=== PATIENT | female | born 1955 | race Caucasian/White ===

== ENCOUNTER → 2017-11-18 17:20 | Outpatient (CLI) | payer MEDICARE, OTHER, SELFPAY ==
[2017-11-18 17:51] LABS: Absolute Lymphocyte Count 1.52 X10^3/ul (0.83-4.51); Absolute Neutrophil Count 2.8 X10^3/uL (2.0-7.7); Basophil# 0.02 X10^3/uL; Basophil% 0.4 % (0-1); Eosinophil# 0.07 X10^3/uL; Eosinophils% 1.4 % (0-5); Hematocrit 40.6 % (37-47); Hemoglobin 13.4 g/dl (12.0-15.0); Lymphocyte # 1.52 X10^3/ul (4.0); Mean Corpuscular Hgb 30.9 pg (27.0-32.0); Mean Corpuscular Volume 93.5 fL (81-99); Mean Platelet Vol. 10.5 fl (6.2-12.0); Monocyte# 0.63 X10^3/uL; Monocyte% 12.4 % (0-10); Neutrophil # 2.82 X10^3/uL (2.7-7.7); Neutrophil % 55.6 % (47-70); Platelet Count 228 K/mm3 (150-450); RBC Distribution Width CV 12.6 % (11.6-14.6); RBC Distribution Width SD 41.9 fl (35.1-43.9); Red Blood Count 4.34 M/mm3 (4.2-5.4); White Blood Count 5.1 K/mm3 (4.4-11.0)
[2017-11-18 18:06] LABS: Erythrocyte Sedimentation Rate 4 mm/hr (0-30)
[2017-11-18 18:14] LABS: POSITIVE COUNT NO; POSITIVE DIFFERENTIAL NO; POSITIVE MORPHOLOGY NO
[2017-11-18 18:51] LABS: CRP < 2.90 mg/L (0.0-3.0); Creatinine, Serum 0.95 mg/dL (0.55-1.02); EST Glomerular Filtration Rate 63 mL/min (>60); Est Glom Filt Rate - Afr Amer 76 mL/min (>60)
== END ==
PROVIDERS: Family Provider Family Medicine; PCP Family Medicine; Visit Provider Ophthalmology
DX: H50.05 Alternating esotropia (principal); H53.2 Diplopia; H40.033 Anatomical narrow angle, bilateral
CPT/HCPCS: 36415; 82565; 85025; 85652; 86140

== ENCOUNTER → 2017-11-20 06:31 | Outpatient (CLI) | payer MEDICARE, OTHER, SELFPAY ==
--- NOTE | 2017-11-20 06:34 | MRI_ITS ---
STUDY: MRI BRAIN WITH AND WITHOUT CONTRAST REASON FOR EXAM: Female, 62 years old. diplopia x 2 days, nki. diplopia x 2 days, nki. TECHNIQUE: Standardized multiplanar fat and water weighted pulse sequences were obtained. 7 ml of Gadavist contrast material was administered intravenously for the contrast portion of the examination. COMPARISON: None. FINDINGS: Normal size of the ventricles and extra-axial spaces for the patient's age. Normal white matter tracts of the supratentorial brain. Normal bilateral globes. Normal bilateral optic nerve sheath complexes and optic nerves. Normal bilateral intraconal and extraconal spaces. Normal bilateral extraocular muscles. Normal bilateral basal ganglia. Normal thalami. There is no extra-axial fluid accumulation. Normal flow voids within the major intracranial circulation suggesting patency by spin echo criteria. Normal venous enhancement. There is no enhancing intra-axial or extra-axial abnormality. Normal sella turcica, pituitary gland, infundibular stalk, optic chiasm and hypothalamus. Normal tectal plate and pineal gland. Normal midbrain, yue and medulla. Normal cerebellum. Normal basal cisterns. Normal bilateral temporal bones. Normal bilateral internal auditory canals. MRI/Brain W/WO Contrast IMPRESSION: Normal unenhanced and enhanced MRI of the brain. Electronically Signed: Silvia Welsh MD at 13:13 EST Tel , Service support ,
== END ==
PROVIDERS: Family Provider Family Medicine; PCP Family Medicine; Visit Provider Ophthalmology
DX: H53.2 Diplopia (principal)
CPT/HCPCS: 70553; A9585

== ENCOUNTER → 2018-09-08 14:01 | Outpatient (CLI) | payer MEDICARE, OTHER, SELFPAY ==
[2018-09-10 15:32] LABS: HPV Reflexed? NOT INDICATED
== END ==
PROVIDERS: Visit Provider Obstetrics & Gynecology
DX: Z12.4 Encounter for screening for malignant neoplasm of cervix (principal)
CPT/HCPCS: 88175; G0145

== ENCOUNTER → 2018-10-22 10:41 | Outpatient (CLI) | payer MEDICARE, OTHER, SELFPAY ==
[2018-10-22 12:40] LABS: Absolute Lymphocyte Count 1.04 X10^3/ul (0.83-4.51); Absolute Neutrophil Count 2.6 X10^3/uL (2.0-7.7); Basophil# 0.01 X10^3/uL; Basophil% 0.2 % (0-1); Eosinophil# 0.11 X10^3/uL; Eosinophils% 2.6 % (0-5); Hematocrit 43.5 % (37-47); Hemoglobin 14.2 g/dl (12.0-15.0); Lymphocyte # 1.04 X10^3/ul (4.0); Lymphocyte % 24.8 % (19-41); Mean Corp Hgb Conc 32.6 g/gl (32-36); Mean Corpuscular Hgb 30.8 pg (27.0-32.0); Mean Corpuscular Volume 94.4 fL (81-99); Monocyte# 0.41 X10^3/uL; Monocyte% 9.8 % (0-10); Neutrophil # 2.62 X10^3/uL (2.7-7.7); Neutrophil % 62.4 % (47-70); Platelet Count 203 K/mm3 (150-450); RBC Distribution Width CV 12.9 % (11.6-14.6); RBC Distribution Width SD 43.4 fl (35.1-43.9); Red Blood Count 4.61 M/mm3 (4.2-5.4); White Blood Count 4.2 K/mm3 (4.4-11.0)
[2018-10-22 12:42] LABS: POSITIVE COUNT NO; POSITIVE DIFFERENTIAL NO; POSITIVE MORPHOLOGY NO
[2018-10-22 13:01] LABS: ALB/GLOB Ratio 1.3 RATIO (0.9-2.4); AST(SGOT) 14 U/L (15-37); Alanine Aminotransfer ALT/SGPT 18 U/L (13-56); Albumin, Serum 3.8 g/dL (3.2-5.0); Alkaline Phosphatase 78 U/L (45-117); Anion Gap 10 (5-15); BUN 18 mg/dL (7-18); BUN/Creat Ratio 18.1 RATIO (10-20); Calcium,Total 8.7 mg/dL (8.5-10.1); Chloride 107 mmol/L (98-107); Creatinine, Serum 0.99 mg/dL (0.55-1.02); EST Glomerular Filtration Rate 60 mL/min (>60); Est Glom Filt Rate - Afr Amer 73 mL/min (>60); Glucose 93 mg/dL (74-106); Magnesium 2.4 mg/dL (1.6-2.6); Potassium 4.4 mmol/L (3.5-5.1); Protein, Total 6.8 g/dL (6.4-8.2); Sodium Level 143 mmol/L (136-145); Thyroid Stim Hormone (TSH) 2.01 uIU/mL (0.358-3.74)
[2018-10-22 13:28] LABS: Hemoglobin A1c 5.5 % (4.2-6.3)
--- OUTSIDE RECORDS SUMMARY | 2018-12-24 08:19 | XMS RPT_ITS ---
:1955 Author Organization OHIP Care Team Providers Name Role Phone Robert Boland Attending Unavailable Robert Boland Primary Care Unavailable Randi Shelton Attending Unavailable Randi Shelton Referring Unavailable Robert Boland Primary Care Unavailable Randi Shelton Attending Unavailable Randi Shelton Referring Unavailable Robert Boland Primary Care Unavailable Janett Charlton Attending Unavailable PROBLEMS PROBLEMS DATE TYPE CONDITION / CODE ATTENDING STATUS SOURCE 09/08/2018 Unknown Z12.4 - Janett Charlton Active Kael Encounter for Community screening for Hospital malignant Repository neoplasm of cervix / Z12.4(ICD-10) 11/20/2017 Unknown H53.2 - Diplopia Randi Shelton Active Kael / H53.2(ICD-10) [facility] Repository PROCEDURES PROCEDURES No Procedure Records FoundRESULTS RESULTS CBC W/DIFF, AUTOMATED Collected: 10/22/2018 Status: F Source: [place] 10:42 AM [facility] REPOSITORY TYPE CODE TESTS RESULT OUT OF RANGE REFERENCE UNITS LAB L100.1000 4.4-11.0 K/mm3 Low WBC 4.2 LAB L100.1200 4.2-5.4 M/mm3 Normal RBC 4.61 LAB L100.1300 12.0-15.0 g/dl Normal HGB 14.2 LAB L100.1400 37-47 % Normal HCT 43.5 LAB L100.1500 81-99 fL Normal MCV 94.4 LAB L100.1600 27.0-32.0 pg Normal MCH 30.8 LAB L100.1700 32-36 g/gl Normal MCHC 32.6 LAB L100.1810 11.6-14.6 % Normal RDW CV 12.9 LAB L100.1820 35.1-43.9 fl Normal RDW SD 43.4 LAB L100.1900 150-450 K/mm3 Normal PLT 203 LAB L100.2000 6.2-12.0 fl Normal MPV 11.0 LAB L100.2100 47-70 % Normal NEUT% 62.4 LAB L100.2200 19-41 % Normal LY% 24.8 LAB L100.2300 0-10 % Normal MONO% 9.8 LAB L100.2400 0-5 % Normal EO% 2.6 LAB L100.2500 0-1 % Normal BASO% 0.2 LAB L100.2550 0.0-0.9 % Normal IM GRAN % 0.200 Result Comment: IG% - Immature Granulocytes (promyelocytes, myelocytes and metamyelocytes) > 1% indicates that a LEFT SHIFT is Present. LAB L100.2620 2.0-7.7 X10 3/uL Normal Absolute Neut 2.6 LAB L100.2720 0.83-4.51 X10 3/ul Normal Absolute Lymph 1.04 Performed By: #### L100.0100, L500.4050, L501.5200, L501.9520, L501.9985 #### [facility] [address] [place], [address] COMPREHENSIVE METABOLIC Collected: 10/22/2018 Status: F Source: [facility] 10:42 AM [facility] REPOSITORY TYPE CODE TESTS RESULT OUT OF RANGE REFERENCE UNITS LAB L501.0100 74-106 mg/dL Normal GLU 93 Result Comment: Please note revised GLUCOSE reference range effective 2017. LAB L501.1000 7-18 mg/dL Normal BUN 18 LAB L501.1100 0.55-1.02 mg/dL Normal CREAT,SERUM 0.99 Result Comment: The validity of the calculated GFR AND GFRAA in patients over 70 years has not been determined. Clinical correlation is essential. LAB L501.1110 >60 mL/min Normal EST GFR 60 Result Comment: Non- GFR Calc LAB L501.1115 >60 mL/min Normal EST GFR - AA 73 Result Comment: GFR Calc LAB L501.1300 10-20 RATIO Normal BUN/CRE 18.1 LAB L501.1500 6.4-8.2 g/dL T Normal PROT 6.8 LAB L501.1800 3.2-5.0 g/dL Normal ALB 3.8 LAB L501.1950 2.2-4.2 g/dL Normal GLOB 3.0 LAB L501.2000 0.9-2.4 RATIO Normal A/G 1.3 LAB L501.2200 8.5-10.1 mg/dL CA Normal 8.7 LAB L501.4100 15-37 U/L Low AST 14 LAB L501.4305 45-117 U/L Normal ALK P 78 LAB L501.4405 13-56 U/L Normal ALT 18 LAB L501.4600 0.20-1.00 mg/dL T Normal BILI 0.70 LAB L501.5300 136-145 mmol/L NA Normal 143 LAB L501.5600 3.5-5.1 mmol/L K Normal 4.4 LAB L501.5900 98-107 mmol/L CL Normal 107 LAB L501.6100 21.0-32.0 mmol/L Normal CO2 26.0 LAB L501.6200 5-15 Normal GAP 10 Performed By: #### L100.0100, L500.4050, L501.5200, L501.9520, L501.9985 #### [facility] [address] [place], [place], [address] MAGNESIUM Collected: 10/22/2018 Status: F Source: [place] 10:42 AM [facility] REPOSITORY TYPE CODE TESTS RESULT OUT OF RANGE REFERENCE UNITS LAB L501.5200 1.6-2.6 mg/dL Normal MG 2.4 Performed By: #### L100.0100, L500.4050, L501.5200, L501.9520, L501.9985 #### [facility] [address] [place], [address] THYROID STIM HORMONE Collected: 10/22/2018 Status: F Source: [place] (TSH) 10:42 AM [facility] REPOSITORY TYPE CODE TESTS RESULT OUT OF RANGE REFERENCE UNITS LAB L501.9520 0.358-3.74 uIU/mL Normal TSH 2.01 Performed By: #### L100.0100, L500.4050, L501.5200, L501.9520, L501.9985 #### [facility] [address] [place], [address] HEMOGLOBIN A1C Collected: 10/22/2018 Status: F Source: [place] 10:42 AM [facility] REPOSITORY TYPE CODE TESTS RESULT OUT OF RANGE REFERENCE UNITS LAB L501.9985 4.2-6.3 % Normal HGB A1C 5.5 Performed By: #### L100.0100, L500.4050, L501.5200, L501.9520, L501.9985 #### [facility] [address] [place], [address] PAP I-G W/RFX HRHPV Collected: 09/08/2018 Status: F Source: [place] 10:00 AM [facility] REPOSITORY Order Comment: CYTOLOGY INFORMATION: - CLINICAL INFORMATION: POSTMENOPAUSAL - DATE LMP/MENOPAUSE: - COLLECTION VIAL: Thin Prep Vial - SOFTWARE DEVELOPER SOURCE: CERVICAL/ENDOCERVICAL - COLLECTION TECHNIQUE: BRUSH/SPATULA Specimen Comment: [id number] Specimen Comment: Source.............Cervix;Endocervix Specimen Comment: Other..............Post Menopausal Specimen Comment: No. of containers..01 ThinPrep Vial TYPE CODE TESTS RESULT OUT OF RANGE REFERENCE UNITS LAB L7400.0800 . Normal DIAGN Comment Result Comment: NEGATIVE FOR INTRAEPITHELIAL LESION AND MALIGNANCY. LAB L7400.0900 . Normal ADEQ Comment Result Comment: Satisfactory for evaluation. Endocervical and/or squamous metaplastic cells (endocervical component) are present. LAB L7400.1400 . Normal PERFORM Comment Result Comment: Audrey Schaffer, [place]ier Field Service Technician (ASCP) LAB L7400.2575 . Normal TEST METHOD Comment Result Comment: This liquid based ThinPrep(R) pap test was screened with the use of an image guided system. LAB L7400.2600 . Normal . COMM LAB L7400.2700 . Normal PAPSMR Comment Result Comment: The Pap smear is a screening test designed to aid in the detection of premalignant and malignant conditions of the uterine cervix. It is not a diagnostic procedure and should not be used as the sole means of detecting cervical cancer. Both false-positive and false-negative reports do occur. LAB L7400.2800 . Normal HPV RFLX Comment Result Comment: The HPV DNA reflex criteria were not met with this specimen result therefore, no HPV testing was performed. Performed at: - [facility] [address], [place] [id number] Compensation Intern: Yola Emery MD, Phone: [phone] Performed By: #### L7400.0350 #### [facility] (refer to report for specific site) refer to report for address and phone number BRAIN W/WO CONTRAST Observed: 11/20/2017 Status: F Source: [place] 6:34 AM [facility] REPOSITORY [facility] Imaging Services [address] [place] [address] Brain W/WO Contrast MR#: [id number] Acct: [id number] Name: SOLANGE HICKEY Rep #: [id number] : 1955 F 62 From: Silvia Welsh PCP: Robert Boland MD Status: REG CLI Study: Brain W/WO Contrast Date of Exam: 11/20/17 Exam# [id number] Ordering Dr: Randi Shelton MD ADDENDUM by Silvia Welsh on 11/22/17 at 0930 MRI/Brain W/WO Contrast 11/22/17 0937 Date cc: Robert Boland MD; Randi Shelton * Signed ADDENDUM by Silvia Welsh on 11/22/17 at 0930 ADDENDUM Normal bilateral globes. Normal bilateral optic nerve sheath complexes and optic nerves. Normal bilateral intraconal and extraconal spaces. Normal bilateral extraocular muscles. Electronically Signed: Silvia Welsh MD at 9:30 EST Tel , Service support , 11/22/17929 Date cc: Robert Boland MD; Randi Shelton * Signed ADDENDUM by Silvia Welsh on 11/22/17 at 0920 MRI/Brain W/WO Contrast 11/22/17926 Date cc: Robert Boland MD; Randi Shelton * Signed ADDENDUM by Silvia Welsh on 11/22/17 at 0920 ADDENDUM TECHNIQUE: Orbits sequences submitted for evaluation include Cor T2 FSE THIN FAT Ax T1 FSE (Thin) FAT Ax T1 FSE (Thin) FAT C+ COR T1 FSE (Thin) FAT C+ Electronically Signed: Silvia Welsh MD at 9:20 EST Tel , Service support , 11/22/17919 Date cc: Robert Boland MD; Randi Shelton * Signed STUDY: MRI BRAIN WITH AND WITHOUT CONTRAST REASON FOR EXAM: Female, 62 years old. diplopia x 2 days, nki. diplopia x 2 days, nki. TECHNIQUE: Standardized multiplanar fat and water weighted pulse sequences were obtained. 7 ml of Gadavist contrast material was administered intravenously for the contrast portion of the examination. COMPARISON: None. FINDINGS: Normal size of the ventricles and extra-axial spaces for the patient's age. Normal white matter tracts of the supratentorial brain. Normal bilateral globes. Normal bilateral optic nerve sheath complexes and optic nerves. Normal bilateral intraconal and extraconal spaces. Normal bilateral extraocular muscles. Normal bilateral basal ganglia. Normal thalami. There is no extra-axial fluid accumulation. Normal flow voids within the major intracranial circulation suggesting patency by spin echo criteria. Normal venous enhancement. There is no enhancing intra-axial or extra-axial abnormality. Normal sella turcica, pituitary gland, infundibular stalk, optic chiasm and hypothalamus. Normal tectal plate and pineal gland. Normal midbrain, yue and medulla. Normal cerebellum. Normal basal cisterns. Normal bilateral temporal bones. Normal bilateral internal auditory canals. MRI/Brain W/WO Contrast IMPRESSION: Normal unenhanced and enhanced MRI of the brain. Electronically Signed: Silvia Welsh MD at 13:13 EST Tel , Service support , CC: Robert Boland MD; Randi Shelton Face Burler: Signed ERYTHROCYTE SED RATE Collected: 11/18/2017 Status: F Source: [place] 5:31 PM [facility] REPOSITORY TYPE CODE TESTS RESULT OUT OF RANGE REFERENCE UNITS LAB L102.0000 0-30 mm/hr Normal SED RATE 4 Performed By: #### L101.9900, L100.0100 #### [facility] [address] [place], [address] CBC W/DIFF, AUTOMATED Collected: 11/18/2017 Status: F Source: [place] 5:31 PM [facility] REPOSITORY TYPE CODE TESTS RESULT OUT OF RANGE REFERENCE UNITS LAB L100.1000 4.4-11.0 K/mm3 Normal WBC 5.1 LAB L100.1200 4.2-5.4 M/mm3 Normal RBC 4.34 LAB L100.1300 12.0-15.0 g/dl Normal HGB 13.4 LAB L100.1400 37-47 % Normal HCT 40.6 LAB L100.1500 81-99 fL Normal MCV 93.5 LAB L100.1600 27.0-32.0 pg Normal MCH 30.9 LAB L100.1700 32-36 g/gl Normal MCHC 33.0 LAB L100.1810 11.6-14.6 % Normal RDW CV 12.6 LAB L100.1820 35.1-43.9 fl Normal RDW SD 41.9 LAB L100.1900 150-450 K/mm3 Normal PLT 228 LAB L100.2000 6.2-12.0 fl Normal MPV 10.5 LAB L100.2100 47-70 % Normal NEUT% 55.6 LAB L100.2200 19-41 % Normal LY% 30.0 LAB L100.2300 0-10 % High MONO% 12.4 LAB L100.2400 0-5 % Normal EO% 1.4 LAB L100.2500 0-1 % Normal BASO% 0.4 LAB L100.2550 0.0-0.9 % Normal IM GRAN % 0.200 Result Comment: IG% - Immature Granulocytes (promyelocytes, myelocytes and metamyelocytes) > 1% indicates that a LEFT SHIFT is Present. LAB L100.2620 2.0-7.7 X10 3/uL Normal Absolute Neut 2.8 LAB L100.2720 0.83-4.51 X10 3/ul Normal Absolute Lymph 1.52 Performed By: #### L101.9900, L100.0100 #### [facility] [place], [place], [address] SERUM CREATININE AND Collected: 11/18/2017 Status: F Source: [place] GFR 5:31 PM [facility] REPOSITORY TYPE CODE TESTS RESULT OUT OF RANGE REFERENCE UNITS LAB L501.1100 0.55-1.02 mg/dL Normal 0.95 CREAT,SERUM Result Comment: The validity of the calculated GFR AND GFRAA in patients over 70 years has not been determined. Clinical correlation is essential. LAB L501.1110 >60 mL/min Normal EST GFR 63 Result Comment: Non- GFR Calc LAB L501.1115 >60 mL/min Normal EST GFR - AA 76 Result Comment: GFR Calc Performed By: #### L501.1105, L501.6710 #### [facility] [address] [place], [address] CRP Collected: 11/18/2017 Status: F Source: [place] 5:31 PM [facility] REPOSITORY TYPE CODE TESTS RESULT OUT OF RANGE REFERENCE UNITS LAB L501.6710 0.0-3.0 mg/L Normal < 2.90 C-REACTIVE PROT Result Comment: C-Reactive Protein (CRP) provides useful information for the diagnosis, therapy and monitoring of inflammatory processes and associated diseases. For the evaluation of Relative Risk for Cardiovascular Disease, a High Sensitivity CRP (HSCRP) should be ordered. Performed By: #### L501.1105, L501.6710 #### [facility] [address] [place], [address] ALLERGIES ALLERGIES DATE TYPE / CODE NAME / CODE REACTION SEVERITY SOURCE 06/29/2017 Drug No Known Unknown [facility] Allergy/4160 Allergies/F00 [facility] [address](SNOMED [id number](RXNOR Repository CT) M) ENCOUNTERS ENCOUNTERS ADMIT/DISCHARGE ACCOUNT ADMITTING ENCOUNTER LOCATION SOURCE NUMBER CLASS 10/22/2018 [id number] [facility] 1 [facility] ing:MFPLAB Repository 09/08/2018 [id number] [facility] 1 [facility] ing:LABSPEC Repository 11/20/2017 [id number] [facility] 5 [facility] ing:MRI Repository 11/18/2017 [id number] [facility] 3 [facility] ing:LAB Repository PAYERS PAYERS ENCOUNTER GUARANTOR PAYER SUBSCRIBER SOURCE 10/22/2018 YU Das: Kael [id number] [place] Insurance[id number] [address]Tel: (330) Number: Repository [phone] () [id number] Date:2018-10-22 10/22/2018 Secondary Solange HickeyDOB: Dresser Insurance:[facility] [id number] [id number] Hospital Number: Repository [id number] Date:9614-09-98[address], [place] [address]VH: 10/22/2018 Tertiary NOT GIVENUNK [place] Insurance:SELF PAY [facility] Effective Repository Date:2018-10-22 09/08/2018 YU Fitzpatrick Primary Solange HickeyDOB: Kael [id number] [place] Insurance:MEDICARE [id number] A [place] [id number]: [phone]) Number: Repository [phone] () [id number] Date:2018-09-08 09/08/2018 Secondary Solange L EdelmiraDOB: Dresser Insurance:[facility] [id number] Hospital Number: Repository [id number] Date:5610-63-36[address], [place] [address]TW: 09/08/2018 Tertiary NOT GIVENUNK [place] Insurance:SELF PAY [facility] Number: Effective Repository Date:2018-09-08 11/20/2017 YU [id number] Primary Solange L EdelmiraDOB: Kael [place] Insurance:MEDICARE [id number] A [place] [id number]: [phone]) Number: Repository [phone] () [id number] Date:2017-11-19 11/20/2017 Secondary Solange L EdelmiraDOB: Kael Insurance:[facility] [id number] [facility] Number: Repository [id number] Date:7580-95-19[address], [place] [address]BU: 11/20/2017 Tertiary NOT GIVENUNK [place] Insurance:SELF PAY [facility] Number: Effective Repository Date:2017-11-19 11/18/2017 YU [id number] Primary Solange Das: Dresser [place] Insurance:MEDICARE [id number] includes the [facility], [place] PART A [facility] [address]Kgr: [phone]) Number: Repository [phone] ( [id number] Date:2017-11-18 11/18/2017 Secondary Solange Das: Kael Insurance:[facility] [id number] [address] Number: Repository [id number] Date:5149-94-23[address], [place] [address]CV: 11/18/2017 Tertiary NOT GIVENUNK [place] Insurance:SELF PAY [facility] Number: Effective Repository Date:2017-11-18
== END ==
PROVIDERS: Family Provider Family Medicine; PCP Family Medicine; Visit Provider Family Medicine
DX: R42 Dizziness and giddiness (principal)
CPT/HCPCS: 36415; 80053; 83036; 83735; 84443; 85025

== ENCOUNTER → 2018-10-29 08:49 | Outpatient (CLI) | payer MEDICARE, OTHER, SELFPAY ==
--- NOTE | 2018-10-29 08:55 | BI_ITS ---
MAMMOGRAPHY - BILATERAL SCREENING REASON FOR EXAM: Female, 63 years old. Routine annual screening examination. PERTINENT HISTORY: Non-contributory. TECHNIQUE: Digital bilateral breast araseli (3D mammographic acquisition) in the CC and MLO projections. 2-D mediolateral oblique (MLO) and craniocaudad (CC) views of both breasts were obtained. CAD: Full Field Digital Mammography with Computer Added Detection was performed. COMPARISON: Comparison is made with prior study dated April 03, 2018 and September 14, 2016. FINDINGS: Breast Composition: There are scattered areas of fibroglandular density. There are no dominant masses or suspicious calcifications. Stable 5 mm x 5 mm well-defined nodular density in the upper outer aspect of the left breast. This most likely represents a small lymph node. Stable appearance of the bilateral axillary lymph nodes. No other significant abnormalities are identified. There has been no significant change since the prior study. BI/SCREENING MAMM (CAD), BILAT IMPRESSION: Stable bilateral screening mammogram. Yearly follow-up mammogram recommended. (A) ASSESSMENT CATEGORY: BIRADS Category 2: Benign. A letter regarding these results will be sent to the patient by the facility within 30 days. Approximately 10% of breast cancers are not detected by mammography. A normal mammogram should not delay biopsy of a clinically suspicious abnormality. [id number] Electronically Signed: Ignacio Vivas MD at 10:10 EST , Service support ,
== END ==
PROVIDERS: Family Provider Family Medicine; PCP Family Medicine; Referring Provider Obstetrics & Gynecology; Visit Provider Obstetrics & Gynecology
DX: Z12.31 Encounter for screening mammogram for malignant neoplasm of breast (principal)
CPT/HCPCS: 77063; 77067

== ENCOUNTER → 2019-11-02 09:45 | Outpatient (CLI) | payer MEDICARE, OTHER, SELFPAY ==
--- NOTE | 2019-11-02 09:49 | BI_ITS ---
MAMMOGRAPHY - BILATERAL SCREENING REASON FOR EXAM: Female, 64 years old. Routine annual screening examination. PERTINENT HISTORY: Non-contributory. TECHNIQUE: Digital bilateral breast jerson (3D mammographic acquisition) in the CC and MLO projections. 2-D mediolateral oblique (MLO) and craniocaudad (CC) views of both breasts were obtained. CAD: Full Field Digital Mammography with Computer Added Detection was performed. COMPARISON: Comparison is made with prior study dated October 29, 2018 and October 04, 2017. FINDINGS: Breast Composition: There are scattered areas of fibroglandular density. There are no dominant masses or suspicious calcifications. Stable 5 mm x 5 mm well-defined nodule in the upper outer aspect of the left breast. Prior sonogram demonstrated this to be a small cyst. Stable small benign-appearing bilateral axillary lymph nodes. No other significant abnormalities are identified. There has been no significant change since the prior study. BI/SCREEN MAMM (CAD) W/JERSON BILAT IMPRESSION: Stable bilateral screening mammogram. Yearly follow-up mammogram recommended. (A) ASSESSMENT CATEGORY: BIRADS Category 0: Incomplete. Need additional imaging evaluation. A letter regarding these results will be sent to the patient by the facility within 30 days. Approximately 10% of breast cancers are not detected by mammography. A normal mammogram should not delay biopsy of a clinically suspicious abnormality. [id number] Electronically Signed: Ignacio Vivas, at 10:48 EST , Service support ,
== END ==
PROVIDERS: Family Provider Family Medicine; PCP Family Medicine; Referring Provider Obstetrics & Gynecology; Visit Provider Obstetrics & Gynecology
DX: Z12.31 Encounter for screening mammogram for malignant neoplasm of breast (principal)
CPT/HCPCS: 77063; 77067

== ENCOUNTER → 2020-01-12 15:49 | Outpatient (CLI) | payer MEDICARE, OTHER, SELFPAY ==
[2020-01-12 17:24] LABS: Absolute Lymphocyte Count 1.32 X10^3/uL (0.83-4.51); Absolute Neutrophil Count 3.2 X10^3/uL (2.0-7.7); Basophil# 0.02 X10^3/uL; Basophil% 0.4 % (0-1); Eosinophil# 0.14 X10^3/uL; Eosinophils% 2.7 % (0-5); Hematocrit 42.7 % (37-47); Lymphocyte # 1.32 X10^3/ul (4.0); Lymphocyte % 25.5 % (19-41); Mean Corp Hgb Conc 32.8 g/dL (32-36); Mean Corpuscular Hgb 30.8 pg (27.0-32.0); Mean Corpuscular Volume 94.1 fL (81-99); Mean Platelet Vol. 10.8 fl (6.2-12.0); Monocyte# 0.44 X10^3/uL; Monocyte% 8.5 % (0-10); NRBC Flagged by Analyzer 0 % (0-5); Neutrophil # 3.23 X10^3/uL (2.7-7.7); Neutrophil % 62.5 % (47-70); Platelet Count 214 K/mm3 (150-450); RBC Distribution Width CV 12.1 % (11.6-14.6); RBC Distribution Width SD 41.8 fl (35.1-43.9); Red Blood Count 4.54 M/mm3 (4.2-5.4); White Blood Count 5.2 K/mm3 (4.4-11.0)
[2020-01-12 17:46] LABS: ALB/GLOB Ratio 1.2 RATIO (0.9-2.4); AST(SGOT) 17 U/L (15-37); Alanine Aminotransfer ALT/SGPT 23 U/L (13-56); Albumin, Serum 3.9 g/dL (3.2-5.0); Alkaline Phosphatase 87 U/L (45-117); Anion Gap 5 (5-15); BUN 22 mg/dL (7-18); BUN/Creat Ratio 23.8 RATIO (10-20); Calcium,Total 8.8 mg/dL (8.5-10.1); Chloride 104 mmol/L (98-107); Creatinine, Serum 0.92 mg/dL (0.55-1.02); EST Glomerular Filtration Rate 65 mL/min (>60); Est Glom Filt Rate - Afr Amer 79 mL/min (>60); Globulin 3.3 g/dL (2.2-4.2); Glucose 85 mg/dL (74-106); Magnesium 2.3 mg/dL (1.6-2.6); Potassium 3.8 mmol/L (3.5-5.1); Protein, Total 7.2 g/dL (6.4-8.2); Sodium Level 139 mmol/L (136-145)
[2020-01-14 13:09] LABS: ANTINUCLEAR ANTIBODIES DIRECT Negative (Negative)
== END ==
PROVIDERS: PCP Family Medicine; Referring Provider Family Medicine; Visit Provider Family Medicine
DX: M79.10 Myalgia, unspecified site (principal)
CPT/HCPCS: 36415; 80053; 83735; 85025; 86038

== ENCOUNTER → 2020-04-13 10:06 | Outpatient (CLI) | payer MEDICARE, OTHER, SELFPAY ==
--- NOTE | 2020-04-13 10:10 | RAD_ITS ---
STUDY: X-RAY - LUMBAR SPINE REASON FOR EXAM: Female, 64 years old. CHRONIC BACK PAIN, NO KNOWN INJURY TECHNIQUE: 5 view(s) of the lumbar spine were obtained. COMPARISON: None FINDINGS: There has been previous pedicle screw fusion surgery with laminectomy at L4 and L5. Hardware is intact and free of complication. Normal lumbar lordosis. There is no substantial scoliosis. There is a normal alignment of the vertebrae. There is multilevel endplate spondylosis of the lumbar vertebrae. Normal disc space heights. The soft tissue structures are unremarkable. RAD/L/S Spine Min 4 Views IMPRESSION: Mild degenerative and postsurgical changes in the lumbar spine. Electronically Signed: Marcus Malik MD at 10:56 EDT , Service support ,
--- NOTE | 2020-04-13 10:17 | RAD_ITS ---
STUDY: X-RAY - THORACIC SPINE REASON FOR EXAM: Female, 64 years old. CHRONIC BACK PAIN, NO KNOWN INJURY TECHNIQUE: 2 view(s) of the thoracic spine were obtained. COMPARISON: None. FINDINGS: Normal kyphosis of the thoracic spine. There is no substantial scoliosis. There is multilevel endplate spondylosis of the thoracic vertebrae. Mild disc space narrowing throughout the thoracic spine. The soft tissue structures are unremarkable. RAD/Thoracic Spine 3 Views IMPRESSION: Degenerative changes, no acute findings Electronically Signed: Marcus Malik MD at 10:54 EDT , Service support ,
== END ==
PROVIDERS: PCP Family Medicine; Referring Provider Family Medicine; Visit Provider Family Medicine
DX: M54.9 Dorsalgia, unspecified (principal)
CPT/HCPCS: 72072; 72110

== ENCOUNTER 2020-05-06 10:00 | Outpatient (RCR) | payer MEDICARE, OTHER, SELFPAY ==
--- NOTE | 2020-03-03 11:38 | HP.PTEVAL ---
Patient's Visit Information IAN PINEDO is a 64 year old F referred to Physical Therapy by Dr. Robert Boland MD with a diagnosis of chronic back pain. Date of Evaluation: 03/03/20 Physical Therapist: Robert Arias, DPT, OCS, CSCS - Visit Plan Frequency: 2-3x /Week Duration: 4-6 Weeks Plan: 2-3x/week for 3-4 weeks for POol based therapya dn progress to I. Pt to decide if exit strategy is pool ex or home ex. Focus on core strength, quad and hip flexor strength, quad and hip flexor stretching, gastroc stretching and general ex. Pt has been in pool before, filled out initial pool paperwork today. - Subjective Has back pain, combination of R knee weakness and giving temporarily but very intermittient adn sometimes happens on L. Tried wrapping them. Also has L anterior hip pain which he calls sciatica. Has LBP across LB. Pain is to 7/10 with outside work. L hip pain gets to 8/10 also at times making it hard to walk. Sleep is interrupted in that it is not comfortable. 5 hours is a good night, 7 is normal. Still doign most of her activities as she lives alone. Has to take breaks and stop working alot. Retired due to back pain. No regular exercises. Can do all basic ADLs. Hard when she hurts. Soft chairs are worse - Pain LBP Pain Intensity (Out of 10): 1 Pain Intensity Range: 0, 7 L anterior hip Pain Intensity (Out of 10): 8 Pain Intensity Range: 1 - Objective Walks normal todaya dn I, trasnfers without difficulty. Balance is good. L/S aROM ext mod limited and sore middle LB, SB are full and painfree. Felxion is tight but not painful. LE AROM WFL except hip ext to 5 degrees B, tightness in quads and hip flexors max. Gastroc max, and HS min. reflexes 2/3 patella and achilles. Sensation LE WNL to gross light touch. Strength LE 4- quads adn hip flexors B, 4/5 rest of LE without pain. Posture is reduced lordosis in L/S and yphotic thoracic spine. No tenderness in soft tissue in LB. - Goals Goal 1:: Sleep without waking due to discomfort Goal Time Frame: 4-6 Weeks Goal 2:: LBP and hip pain 2/10 at worst and 85% better Goal Time Frame: 4-6 Weeks Goal 3:: No incidence of knee weakness/giving out for 2 wweeks Goal Time Frame: 4-6 Weeks Goal 4:: Oswestry score of <10 Goal Time Frame: 4-6 Weeks - Rehabilitation Potential Physical Therapy Diagnosis: chronic back pain. Rehabilitation Potential: Fair - Anticipated Interventions Patient/Client Instruction: Educate patient on: Condition, Plan of Care For the Purpose of:: To decrease pain, To increase ROM, To improve nutrient delivery to tissue, To improve muscle performance and motor function Therapeutic Exercise to Include: Strength training, Postural training, Flexibilty training, In an aquatic setting, Passive ROM, Active ROM For the Purpose of:: To decrease pain, To increase ROM, To improve nutrient delivery to tissue, To improve muscle performance and motor function, To increase tolerance to activity/condition/position Thank you for the opportunity to evaluate your patient. For Medicare and Medicare HMO plans, please review the plan of care and approve it. It will need to be FAXED BACK to us at [phone] for Medicare purposes. For Medicare only, by signing this I certify the plan of care. Please let me know if there are questions or concerns regarding this plan of care. Physician Signature: Date:
--- NOTE | 2020-03-09 11:13 | HP.OTEVAL ---
Patient's Visit Information IAN PINEDO is a 64 year old F, referred to Occupational Therapy by Dr. Robert Boland MD, with a diagnosis of right RF trigger finger. Date of Evaluation: 03/09/20 Occupational Therapist: Kamla Blair, OTR/Adrianne, CHT - Subjective This 64 year old female was seen for OT eval with dx of right ring finger. Pt thinks this triggering started in Oct. and due to COVID pt was home and symptoms continue to get worse. pt is right handed. Pt states she is doing all home mtg and yard work and feels this may increase her issues. pt thinks initiating cause was shoveling gravel from her yard. Pt would like to return to PLOF so she can perfrom her home mtg tasks without difficulty. 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 Pt will demo an increase in lateral and tripod pinch by 2# to increase pts independent with opening baggies, containers at PLOF by D/C. Goal:: Pt will report pain no greater than 1/10 with use of affected hand with BADLs and IADLs by d/c. Goal:: Pt will demo understanding of work/lifting and carry ergonomics to decrease stress on tendons to increase pts independent with ADLs, IADLS and work tasks by d/c. - Rehabilitation General Assessment: Pt demo with positive right RF trigger finger this is limiting pts ind. with yard work, ADLs and IADLS tasks. Pt would benefit from skilled OT services 2x week for 4 weeks to return pt to PLOF. Today therapist esperanza. custom trigger finger orthosis, ed. on use and care. Therapist instructed pt on forearm stretches, contrast bath and ice massage to decrease inflamation- pt was given handout and demo understanding and agree to POC. Rehabilitation Potential: Good - Anticipated Interventions A/AAROM/PROM, Triggerpoint Release, Modalities, Orthoses, Joint Protection/Energy Conservation, Ergonomic Education - Visit Plan Frequency: 2x /Week Duration: 4 Weeks General Plan: Therapist will initiate modalities as US 100% 1.2 3.3 mhz to right RF, followed by trigger point release- and ice to decrease inflamation and cont. to ed. pt on joint protection and ergo with yard work. TEXT: Thank you for the opportunity to evaluate your patient. For Medicare and Medicare HMO plans, please review the plan of care and approve it. It will need to be FAXED BACK to us at [phone] for Medicare purposes. Please let me know if there are questions or concerns regarding this plan of care. Physician Signature: Date:
--- NOTE | 2020-04-15 13:28 | HP.PTREVAL ---
Dr. Robert Boland MD, It has been my pleasure to treat IAN PINEDO over the last 13 visits for chronic back pain. Please see the progress note below for an update on the physical therapy plan of care! Subjective: Still has heel pain B intermittently in late afternoon and evening. Gets to 9/10. Back is no problem unless she overdoes it. Had 10 x rays of back and all was well. Sleep is not great but not due to physical pain. 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 May try gym program and home is definite. Heel pain is on plantar surface. Objective/Function: LB AROM WFL without pain except ext min limited and tender centrally. LE strenght 4/5 adn core at 4/5. Goals stilla ppropriate to work toward slow improvement and I program pt can do out of water on own care home. Fair prognosis Plan Plan: 2x/week for 3-4 weeks for teaching of following ex for patient HEP with list/pics and neutral spine: ellitpical. bike. band row, pulldown. shoulder press db. mat core strength bugs and supermans. LE strength squats , RDL, band HS curls and heel rasies with db. Goals Goal 1:: Sleep without waking due to discomfort Goal Time Frame: 4-6 Weeks Goal Progress: Goal Met Goal 2:: LBP and hip pain 2/10 at worst and 85% better Goal Time Frame: 4-6 Weeks Goal Progress: Progressing,approp Goal 3:: No incidence of knee weakness/giving out for 2 wweeks Goal Time Frame: 4-6 Weeks Goal Progress: Progressing, 1 instance Goal 4:: Oswestry score of <10 Goal Time Frame: 4-6 Weeks Goal Progress: Progressing Anticipated Interventions Patient/Client Instruction: Educate patient on: Condition, Plan of Care For the Purpose of:: To decrease pain, To increase ROM, To improve nutrient delivery to tissue, To improve muscle performance and motor function Therapeutic Exercise to Include: Strength training, Postural training, Flexibilty training, In an aquatic setting, Passive ROM, Active ROM For the Purpose of:: To decrease pain, To increase ROM, To improve nutrient delivery to tissue, To improve muscle performance and motor function, To increase tolerance to activity/condition/position Please do not hesitate to contact me at [phone] by phone or if you have questions or concerns regarding this new plan of care! Sincerely, Robert Arias, DPT, OCS, CSCS
--- NOTE | 2020-05-06 10:26 | HP.PTDCSUM ---
It has been my pleasure to treat IAN PINEDO referred by Dr. Robert Boland MD, with the diagnosis of chronic back pain for a total of 20 visit(s). Discharge Date: 05/06/20 Please see the following information for a summary of their discharge status. Subjective: Slowly better. Less episodes of back pain. Not as intense. Can do more outside. Ready to be on own. [place] ee Dr. Boland 2 months. LBP Pain Intensity (Out of 10): 0 L anterior hip Pain Intensity (Out of 10): 0 L heel Pain Intensity (Out of 10): 0 % Improvement: 80 Objective/Function: Full aROM L/S without pain today.Walks well adn ready to be on own. Goal 1:: Sleep without waking due to discomfort Goal Progress: Goal Met Goal 2:: LBP and hip pain 2/10 at worst and 85% better Goal Progress: 80% Goal 3:: No incidence of knee weakness/giving out for 2 wweeks Goal Progress: Goal Met Goal 4:: Oswestry score of <10 Goal Progress: Progressing Plan: d/c Discharge Comments: Pt to continue ex on own in gym as member. If there are questions or concerns regarding this patient's physical therapy, please feel free to call me at [phone]. Thank you for the referral of this patient. Sincerely, Robert Arias, DPT, OCS, CSCS
== END 2020-05-06 19:00 | disposition home or self-care (01) ==
LOC: PT 10:00
PROVIDERS: PCP Family Medicine; Referring Provider Family Medicine; Visit Provider Family Medicine
DX: M65.30 Trigger finger, unspecified finger (principal); M54.9 Dorsalgia, unspecified; G89.29 Other chronic pain
CPT/HCPCS: 97035; 97110; 97113; 97140; 97161; 97164; 97166; 97530; 97760

== ENCOUNTER 2020-06-30 09:30 | Outpatient (RCR) | payer MEDICARE, BC, SELFPAY ==
--- NOTE | 2020-06-02 10:44 | HP.PTEVAL ---
Patient's Visit Information IAN PINEDO is a 64 year old F referred to Physical Therapy by Dr. Robert Boland MD with a diagnosis of back strain. Date of Evaluation: 06/02/20 Physical Therapist: Robert Arias, DPT, OCS, CSCS - Visit Plan Frequency: 2x /Week Duration: 4-6 Weeks Plan: 2x/week for 4 weeks for. 1. ext biased LB ROM program and progression. 2. core strengthening. 3. modalities of TENS and MH as needed for pain. May need some STM to L LB. Pt to consider getting script for home tENS due to her history and this would be appropriate for doctor to fax over. - Subjective L sided hip pain and into LB for about two weeks. Just finished therapy for heel pain(back). Was cleaning out garage and bent over pulling a 50# bag of salt out x 10.Hurt shortly after adn kept on. That night it really huirt. 07/09 at that time. Since then it has improved slightly. 40% better overall. Dr. Boland put her on valium for 4 days and didnt like it. Decreasing intenisty. X rays of hip and back prior to this incident. Recommended pain management X rays are fine. Will see pain managemnt next . Sitting is worse, standing short time is OK but pressure is through R leg. Hard to roll in bed early on, still challenging. Sleep is not great due to pain and meds. Not doing much at home. Able to do the basics like dressing slowy - Pain LBP and L hip Pain Intensity (Out of 10): 4 Pain Intensity Range: 4, 9 - Objective Walks slow and hesitant avpiding L WB. Stands with weight through R LE. Sits and transfers I but weight through R buttock. Hesitant and slow to move. I sit and supine transfers. LB AROM ext max limited and painful L hip ant and post. L SB also limtied and painful, Flexion is mod limited to about 40 degrees. R SB is stretchy in L hip. relfexes 1/3 patella and achiilles. Sensation LE WNL to gross light touch. Strength LE weak in L hip flexors due to pain, others OK at 3+/5. + L FADDIR, - MARIZA. repeated eis improves walk, pain to LB vs hip and slight increase motion. repeated flexion sitting: W, hard to stand up tall - Goals Goal 1:: Patient able to stand and walk without evidence of pain Goal Time Frame: 4-6 Weeks Goal 2:: Patient feel 90% improved and pain 1/10 at worst Goal Time Frame: 4-6 Weeks Goal 3:: I approp HEP and body mechanics to limit future problems Goal Time Frame: 4-6 Weeks Goal 4:: Sleep wthout waking Goal Time Frame: 4-6 Weeks - Rehabilitation Potential Physical Therapy Diagnosis: back strain, discal pathology - Anticipated Interventions Patient/Client Instruction: Educate patient on: Condition, Plan of Care For the Purpose of:: To decrease pain, To increase tolerance to activity/condition/position, To improve ability of physical actions for home/community/work/leisure, To improve gait and locomotor functions Therapeutic Exercise to Include: Strength training, Postural training, Gait and locomotor training, Passive ROM, Active ROM, Dynamic Lumbar Stabilization, Christopher Exercises For the Purpose of:: To decrease pain, To improve muscle performance and motor function, To increase tolerance to activity/condition/position, To improve ability of physical actions for home/community/work/leisure, To improve gait and locomotor functions Manual Therapy Techniques to Include: Mobilization, Passive ROM, Soft tissue mobilization For the Purpose of:: To decrease pain, To increase tolerance to activity/condition/position TENS: Yes Thermo therapy (hot pack): Yes For the Purpose of:: To decrease pain Thank you for the opportunity to evaluate your patient. For Medicare and Medicare HMO plans, please review the plan of care and approve it. It will need to be FAXED BACK to us at [phone] for Medicare purposes. For Medicare only, by signing this I certify the plan of care. Please let me know if there are questions or concerns regarding this plan of care. Physician Signature: Date:
--- NOTE | 2020-06-30 10:14 | HP.PTDCSUM ---
It has been my pleasure to treat IAN PINEDO referred by Dr. Robert Boland MD, with the diagnosis of back strain for a total of 9 visit(s). Discharge Date: 06/30/20 Please see the following information for a summary of their discharge status. Subjective: Doing great , No pain currently. Gets some discomfort bending over and gone upon correction. Painted baseboard and climbed ladder yesterday without pain. Activities are pretty nroma, mowed and trimmed OK. Sleep is interrupted as she needs to readjust. Does get right back to sleep. HEP: going OK and got gym ex today that she is comfortable with. To doctor in a couple weeks. LBP and L hip Pain Intensity (Out of 10): 0 Thoracic region Pain Intensity (Out of 10): 0 % Improvement: 95 Objective/Function: Full aROM L/S without pain today. Walks normal and transfers normal. Moving excellent. Confident she can continue with home and gym ex. Will get tENS unit in mail today. Goal 1:: Patient able to stand and walk without evidence of pain Goal Progress: Goal Met Goal 2:: Patient feel 90% improved and pain 1/10 at worst Goal Progress: Goal Met Goal 3:: I approp HEP and body mechanics to limit future problems Goal Progress: Goal Met Goal 4:: Sleep wthout waking Goal Progress: Progressing Plan: No further PT needed unless pateint needs help with tENS unit set up and will let us know within a week if she does, otherwise will d/.c to HEP If there are questions or concerns regarding this patient's physical therapy, please feel free to call me at [phone]. Thank you for the referral of this patient. Sincerely, Robert Arias, DPT, OCS, CSCS
== END 2020-06-30 19:00 | disposition home or self-care (01) ==
LOC: PT 09:30
PROVIDERS: PCP Family Medicine; Referring Provider Family Medicine; Visit Provider Family Medicine
DX: M54.9 Dorsalgia, unspecified (principal); G89.29 Other chronic pain
CPT/HCPCS: 97014; 97110; 97140; 97162; 97164; G0283

== ENCOUNTER → 2020-11-02 12:03 | Outpatient (CLI) | payer MEDICARE, BC, SELFPAY ==
--- NOTE | 2020-11-02 12:06 | RAD_ITS ---
STUDY: X-RAY - LEFT FOOT CLINICAL: Female, 65 years old. forefoot/non plantar injury with bruising and nodule 4th prox MT -- leg gave out after being on the elliptical TECHNIQUE: 3 view(s) of the foot. COMPARISON: None. FINDINGS: Normal talus, calcaneus, and tarsal bones. 1 cm type II accessory navicular bone. Normal visualized subtalar, talonavicular, calcaneocuboid, tarsal and tarsometatarsal articulations. Normal metatarsi. Normal metatarsophalangeal joint of the great toe. Normal tibial and fibular sesamoid bones. Normal interphalangeal joint of the great toe. Normal phalanges of the great toe. Normal second through fifth metatarsophalangeal joints. Normal interphalangeal joints and phalanges of the lesser toes. The soft tissue structures are unremarkable. RAD/Foot min 3 Views IMPRESSION: Normal x-ray examination of the foot. Electronically Signed: Primo Nichole MD at 7:53 EST Tel , Service support ,
== END ==
PROVIDERS: PCP Family Medicine; Referring Provider Family Medicine; Visit Provider Family Medicine
DX: S99.922A Unspecified injury of left foot, initial encounter (principal)
CPT/HCPCS: 73630

== ENCOUNTER 2020-11-03 09:30 | Outpatient (RCR) | payer MEDICARE, BC, SELFPAY ==
--- NOTE | 2020-10-14 12:19 | HP.OTEVAL_ITS ---
Patient's Visit Information IAN PINEDO is a 65 year old F, referred to Occupational Therapy by Dr. Robert Boland MD, with a diagnosis of right 3rd trigger finger. Date of Evaluation: 10/13/20 Occupational Therapist: Kamla Blair, OTR/Adrianne, CHT - Subjective This 65 year old female was seen for OT eval with dx of right MF trigger finger- pt states symptoms started in Aug. pt states she started using her orthosis to prevent her finger clicking. pt states she hasn't done anything than using her orthosis and massaging her hand. pt states she is not working. pt states no pain just joints feel tight- worst is gripping, opening jars. - ROM ROM Comments: pt demo with bilateral wrist and digit ROM WNL. right hand demo with positive trigger - Strength Impression Printer: right 20# left 40# Lateral Pinch: right 6# left 6# Tripod Pinch: right unable left 8# Strength Comments: pt demo with weak right engraving patternmaker and pinch strenght - Quick DASH-Disab of Arm,Shoulder& Hand Quick DASH Score: 20.0000 - Goals Goal:: pt will demo a increase in right engraving patternmaker strength by 15# to increase pts ind with ADL and IADLs by d/c Goal:: pt will demo the ability to open/close right hand freely to increase pt ind grasp release without noted flexor tendon catch by d/c - Rehabilitation General Assessment: pt demo with a decrease in right engraving patternmaker strength and functional use of her right hand with ADls and IADls .pt would benefit from skilled OT services 1-2x week for 4 weeks to return pt to PLOF with ADls and IADls Rehabilitation Potential: Good - Anticipated Interventions ICAM Protocol, A/AAROM/PROM, Strengthening, Triggerpoint Release, Desensitization, Sensory Retraining, Modalities, Orthoses, Joint Protection/Energy Conservation, Ergonomic Education - Visit Plan Frequency: 1-2x /Week Duration: 6 Weeks TEXT: Thank you for the opportunity to evaluate your patient. For Medicare and Medicare HMO plans, please review the plan of care and approve it. It will need to be FAXED BACK to us at [phone] for Medicare purposes. Please let me know if there are questions or concerns regarding this plan of care. Physician Signature: Date:
--- NOTE | 2020-11-03 09:57 | HP.OTDCSUM_ITS ---
It has been my pleasure to treat IAN PINEDO under orders from Dr. Robert Boland MD, for the diagnosis of right 3rd trigger finger for a total of 7 visit(s). Please see the following information for a summary of their discharge status. Objective/Function: pt demo with a right oil pipe inspector helper of 40# and left of 45#. pt thin Patient Goals: Regain Mobility, Use Hand/Wrist/Arm Normally Again Goal:: pt will demo a increase in right oil pipe inspector helper strength by 15# to increase pts ind with ADL and IADLs by d/c Goal:: pt will demo the ability to open/close right hand freely to increase pt ind grasp release without noted flexor tendon catch by d/c Plan: D/C Discharge Comments: pt was seen for 7 OT sessions for right 3rd trigger finger. pt is using orthosis to prevent triggering. Pt states she has no triggering at this time. pt currently reporting 80% better. pt is to continue with HEP and conservative methoods to mtg. trigger finger. Pt advised if she has trigger return to contact for further tx. pt agree to POC If there are questions or concerns regarding this patient's occupational therapy, please fell free to call me at [phone]. Thank you for the referral of this patient. Sincerely, Kamla Blair, OTR/L, CHT
== END 2020-11-03 19:00 | disposition home or self-care (01) ==
LOC: OT 09:30
PROVIDERS: PCP Family Medicine; Visit Provider Family Medicine
DX: M65.331 Trigger finger, right middle finger (principal)
CPT/HCPCS: 97035; 97110; 97140; 97166; 97168; 97530; 97763

== ENCOUNTER → 2020-11-07 13:35 | Outpatient (CLI) | payer MEDICARE, BC, SELFPAY ==
--- NOTE | 2020-11-07 13:37 | BI_ITS ---
MAMMOGRAPHY - BILATERAL SCREENING REASON FOR EXAM: Female, 65 years old. Routine annual screening examination. PERTINENT HISTORY: Non-contributory. TECHNIQUE: Digital bilateral breast jerson (3D mammographic acquisition) in the CC and MLO projections. 2-D mediolateral oblique (MLO) and craniocaudad (CC) views of both breasts were obtained. CAD: Full Field Digital Mammography with Computer Added Detection was performed. COMPARISON: Comparison is made with prior examination dated 11/02/2019 and 10/29/2018. FINDINGS: Breast Composition: There are scattered areas of fibroglandular density. There are no dominant masses or suspicious calcifications. Stable 5 mm x 5 mm well-defined nodule in the upper outer aspect of the left breast. Prior sonogram demonstrated this to be a small cyst. Stable appearance of the small benign-appearing bilateral axillary lymph nodes. No other significant abnormalities are identified. There has been no significant change since the prior study. BI/SCRN MAMM (CAD)W/JERSON BILAT IMPRESSION: Stable bilateral screening mammogram. Yearly follow-up mammogram recommended. (A) ASSESSMENT CATEGORY: BIRADS Category 2: Benign. A letter regarding these results will be sent to the patient by the facility within 30 days. Approximately 10% of breast cancers are not detected by mammography. A normal mammogram should not delay biopsy of a clinically suspicious abnormality. [id number] Electronically Signed: Ignacio Vivas MD at 14:55 EST , Service support ,
== END ==
PROVIDERS: PCP Family Medicine; Referring Provider Obstetrics & Gynecology; Visit Provider Obstetrics & Gynecology
DX: Z12.31 Encounter for screening mammogram for malignant neoplasm of breast (principal)
CPT/HCPCS: 77063; 77067

== ENCOUNTER → 2020-12-26 09:35 | Outpatient (CLI) | payer MEDICARE, BC, SELFPAY ==
--- NOTE | 2020-12-26 09:38 | RAD_ITS ---
STUDY: X-RAY - PELVIS AND BILATERAL HIPS REASON FOR EXAM: Female, 65 years old. Polyarthralgia TECHNIQUE: AP view of the pelvis.? 2 views of the right hip, and 2 views of the left hip were obtained. COMPARISON: None. FINDINGS: There is a non-specific bowel gas pattern. Normal visualized soft tissue structures. Normal bilateral iliac wings, sacroiliac joints and visualized sacrum. Normal bilateral superior and inferior pubic rami. Normal pubic symphysis. Normal bilateral ischial tuberosities. Normal visualized right femoral head. Normal right acetabulum. Normal right hip joint. Normal visualized left femoral head. Normal left acetabulum. Normal left hip joint. Evidence of prior laminectomy and fusion at the L4-L5 level. RAD/Hips B/L min 2 views w/ Pelvis IMPRESSION: Normal x-ray examination of the pelvis and bilateral hips. Electronically Signed: Ignacio Vivas MD at 9:53 EDT , Service support ,
[2020-12-26 12:09] LABS: Erythrocyte Sedimentation Rate 22 mm/hr (0-30)
[2020-12-26 12:10] LABS: Absolute Lymphocyte Count 1.72 X10^3/uL (0.83-4.51); Absolute Neutrophil Count 4.5 X10^3/uL (2.0-7.7); Basophil# 0.02 X10^3/uL; Basophil% 0.3 % (0-1); Eosinophil# 0.12 X10^3/uL; Eosinophils% 1.7 % (0-5); Hematocrit 43.3 % (37-47); Hemoglobin 14.3 g/dL (12.0-15.0); Lymphocyte # 1.72 X10^3/ul (4.0); Lymphocyte % 24.5 % (19-41); Mean Corpuscular Volume 93.7 fL (81-99); Mean Platelet Vol. 10.8 fl (6.2-12.0); Monocyte# 0.61 X10^3/uL; Monocyte% 8.7 % (0-10); NRBC Flagged by Analyzer 0 % (0-5); Neutrophil % 64.2 % (47-70); Platelet Count 274 K/mm3 (150-450); RBC Distribution Width CV 12.9 % (11.6-14.6); RBC Distribution Width SD 44.3 fl (35.1-43.9); Red Blood Count 4.62 M/mm3 (4.2-5.4)
[2020-12-26 12:28] LABS: ALB/GLOB Ratio 1.1 RATIO (0.9-2.4); AST(SGOT) 13 U/L (15-37); Alanine Aminotransfer ALT/SGPT 20 U/L (13-56); Albumin, Serum 3.6 g/dL (3.2-5.0); Alkaline Phosphatase 109 U/L (45-117); Anion Gap 5 (5-15); BUN 31 mg/dL (7-18); BUN/Creat Ratio 28.7 RATIO (10-20); CRP < 2.90 mg/L (0.0-3.0); Calcium,Total 8.9 mg/dL (8.5-10.1); Chloride 106 mmol/L (98-107); Creatinine, Serum 1.08 mg/dL (0.55-1.02); EST Glomerular Filtration Rate 54 mL/min (>60); Est Glom Filt Rate - Afr Amer 65 mL/min (>60); Globulin 3.4 g/dL (2.2-4.2); Glucose 103 mg/dL (74-106); Potassium 4.2 mmol/L (3.5-5.1); Rheumatoid Factor < 10.0 IU/mL (<15); Sodium Level 138 mmol/L (136-145)
[2020-12-27 16:08] LABS: PROEL- A/G Ratio 1.1 (0.7-1.7); PROEL- Albumin 3.5 g/dL (2.9-4.4); PROEL- Alpha-1 Globulin 0.2 g/dL (0.0-0.4); PROEL- Alpha-2 Globulin 0.8 g/dL (0.4-1.0); PROEL- Beta Globulin 1.2 g/dL (0.7-1.3); PROEL- Gamma Globulin 0.8 g/dL (0.4-1.8); PROEL- Globulin, Total 3.1 g/dL (2.2-3.9); PROEL- TOTAL PROTEIN 6.6 g/dL (6.0-8.5)
[2020-12-28 12:36] LABS: ANTINUCLEAR ANTIBODIES DIRECT Negative (Negative)
== END ==
PROVIDERS: PCP Family Medicine; Referring Provider Family Medicine; Visit Provider Family Medicine
DX: M25.50 Pain in unspecified joint (principal)
CPT/HCPCS: 73521; 80053; 84165; 85025; 85652; 86038; 86140; 86431

== ENCOUNTER → 2021-01-18 14:10 | Outpatient (CLI) | payer MEDICARE, BC, SELFPAY ==
--- NOTE | 2021-01-18 14:12 | CT_ITS ---
STUDY: CT SCAN HEAD LEFT REASON FOR EXAM: Female, 65 years old. Left hip. Increased pain after injection therapy. Concern for h RADIATION DOSAGE (If Supplied By Facility): CTDIvol = ( 17.61 ) mGy, DLP = ( 727.11 ) mGycm. Individualized dose optimization techniques were used for this CT.? TECHNIQUE: Multiple axial tomographic images of the left hip joint were obtained without intravenous contrast administration. Coronal and sagittal reconstruction was obtained as well. COMPARISON: None. FINDINGS: No evidence of dislocation. No fracture is seen. No bony abnormality is present. The soft tissues are unremarkable. CT/Extremity Lower WITH Contrast IMPRESSION: Unremarkable examination. Electronically Signed: Ignacio Vivas MD at 15:10 EDT , Service support ,
== END ==
PROVIDERS: PCP Family Medicine; Referring Provider Family Medicine; Visit Provider Family Medicine
DX: M25.552 Pain in left hip (principal)
CPT/HCPCS: 73701; Q9967

== ENCOUNTER → 2021-07-03 10:13 | Outpatient (CLI) | payer MEDICARE, BC, SELFPAY ==
--- NOTE | 2021-07-03 10:16 | MRI_ITS ---
STUDY: MRA OF THE HEAD WITHOUT CONTRAST REASON FOR EXAM: Female, 66 years old. recurrent event. 2018 wnl MRI. now persisting. ? mass/inflammat TECHNIQUE: 3-D [id number] (TOF) imaging was performed with MIPs. The study was performed unenhanced. COMPARISON: 11/20/2017. FINDINGS: There is a 3 mm conical projection visualized off the medial aspect of the left cavernous carotid visualized projecting medially and superiorly best visualized on series 2 image 75/152 Normal bilateral petrous carotid arteries. Normal right cavernous carotid artery with a normal supraclinoid bifurcation. Normal left cavernous carotid artery with a normal supraclinoid bifurcation. Normal right A1 segments of the anterior cerebral artery. Normal left A1 segments of the anterior cerebral artery. Normal intact anterior communicating artery (ACOM). Normal bilateral A2 segments of the anterior cerebral arteries. Normal right M1 and M2 segments of the middle cerebral arteries, with a normal M1 bifurcation. Normal left M1 and M2 segments of the middle cerebral arteries, with a normal M1 bifurcation. Normal right posterior communicating artery (PCOM). Normal left posterior communicating artery (PCOM). Normal bilateral vertebral arteries. Normal basilar artery with a normal basilar bifurcation. The visualized bilateral superior cerebellar (SCA) arteries are normal. Normal bilateral P1, P2 and visualized P3 segments of the posterior cerebral arteries. There is no demonstrated aneurysm of the nulato of Watt. There is no major vessel occlusion or hemodynamically significant stenosis. There is no demonstrated abnormality of the visualized brain. MRI/MRA Head ONLY without Contrast IMPRESSION: 3 mm conical projection visualized off the medial aspect of the left cavernous carotid visualized projecting medially and superiorly best visualized on series 2 image 75/152. Recommend follow-up evaluation, this could represent an infundibulum or a focal aneurysm. Otherwise unremarkable intracranial vessels. Electronically Signed: Chris Lacy MD at 15:29 EDT Tel , Service support ,
== END ==
PROVIDERS: PCP Family Medicine; Referring Provider Family Medicine; Visit Provider Family Medicine
DX: H53.2 Diplopia (principal)
CPT/HCPCS: 70544

== ENCOUNTER → 2021-08-18 13:52 | Outpatient (CLI) | payer MEDICARE, BC, SELFPAY ==
--- NOTE | 2021-08-18 13:55 | CDUL_ITS ---
Reason For Study: Aneurysm of Carotid Lt. Velocities/BP Prox CCA 106/27 cm/sec. Mid CCA 80/23 cm/sec. Dist CCA 75/20 cm/sec. Prox ICA 73/23 cm/sec. Mid ICA 69/20 cm/sec. Dist ICA 76/32 cm/sec. Lt. ICA/CCA = 0.9. Prox ECA 83/24 cm/sec. Lt. Vert. 66/20 cm/sec. Procedure Carotid Duplex 17004. This is a Carotid Duplex examination using B-mode, color flow and specral Doppler. Unilateral (Left) Carotid ultrasound per order. Exam performed in department. VL/Carotid Unilateral Interpretation Summary Intimal thickening left carotid bulb and proximal internal carotid artery witho ut hemodynamically significant plaque and less than 50% stenosis of the internal carotid artery Less than 50% stenosis left external carotid artery Patent antegrade left vertebral Left carotid bulb 1.02 x 0.92 cm Left internal carotid artery 0.93 x 0.84 cm with a anticipated left internal ca rotid artery diameter of 0.46 cm ??0.08 cm thus classifying this as aneurysmal change of the internal carotid artery Ordering Physician: Robert Boland Referring Physician: Robert Boland Performed By: Violet Gibbs, HANNAH, RVT
--- NOTE | 2021-08-18 14:15 | CT_ITS ---
STUDY: CT ABDOMEN AND PELVIS WITHOUT CONTRAST REASON FOR EXAM: Female, 66 years old. L lower back and abdominal pain radiating to hip groin. No improv RADIATION DOSAGE (If Supplied By Facility): CTDIvol = ( 12.29 ) mGy, DLP = ( 593.11 ) mGycm TECHNIQUE: Transaxial images were obtained from the dome of the diaphragm to the symphysis pubis without oral contrast, and without intravenous contrast. Sagittal and coronal images were reconstructed. Individualized dose optimization techniques were used for this CT. COMPARISON: Comparison is made with prior examination dated 01/17/2016. FINDINGS: The visualized lung bases are unremarkable. The visualized portions of the heart are within normal limits. Normal liver. There are multiple gallstones. Normal spleen. Normal pancreas. Normal bilateral adrenal glands. Normal right kidney. Normal left kidney. There is a small hiatal hernia. Normal small intestine. There are multiple colonic diverticula consistent with diverticulosis. The appendix is visualized and appears normal. There is diffuse atherosclerotic calcification of the abdominal aorta, without a demonstrated aneurysm. Normal inferior vena cava. Normal retroperitoneum. Normal urinary bladder. There is a small umbilical hernia containing fat. Normal osseous structures. CT/Abdomen/Pelvis without Cont IMPRESSION: Sigmoid diverticulosis. Prior interpedicular screw fixation at the L4-L5 level. Electronically Signed: Ignacio Vivas MD at 15:01 EST , Service support ,
== END ==
PROVIDERS: PCP Family Medicine; Referring Provider Family Medicine; Visit Provider Family Medicine
DX: R10.9 Unspecified abdominal pain (principal); M54.50 Low back pain, unspecified; I72.0 Aneurysm of carotid artery
CPT/HCPCS: 74176; 93882

== ENCOUNTER → 2021-09-13 10:31 | Outpatient (CLI) | payer MEDICARE, BC, SELFPAY ==
[2021-09-13 11:03] LABS: Absolute Lymphocyte Count 1.39 X10^3/uL (0.83-4.51); Absolute Neutrophil Count 2.2 X10^3/uL (2.0-7.7); Basophil# 0.02 X10^3/uL; Basophil% 0.5 % (0-1); Eosinophil# 0.18 X10^3/uL; Eosinophils% 4.2 % (0-5); Hematocrit 39.5 % (37-47); Hemoglobin 12.9 g/dL (12.0-15.0); Lymphocyte # 1.39 X10^3/ul (0.83-4.51); Lymphocyte % 32.3 % (19-41); Mean Corp Hgb Conc 32.7 g/dL (32-36); Mean Corpuscular Hgb 30.7 pg (27.0-32.0); Mean Platelet Vol. 10.4 fl (6.2-12.0); Monocyte% 11.6 % (0-10); NRBC Flagged by Analyzer 0 % (0-5); Neutrophil % 51.2 % (47-70); Platelet Count 247 K/mm3 (150-450); RBC Distribution Width CV 12.7 % (11.6-14.6); RBC Distribution Width SD 43.3 fl (35.1-43.9); White Blood Count 4.3 K/mm3 (4.4-11.0)
[2021-09-13 11:33] LABS: AST(SGOT) 16 U/L (15-37); Alanine Aminotransfer ALT/SGPT 21 U/L (13-56); Albumin, Serum 3.3 g/dL (3.2-5.0); Alkaline Phosphatase 80 U/L (45-117); Anion Gap 1 (5-15); BUN 18 mg/dL (7-18); BUN/Creat Ratio 17.8 RATIO (10-20); CPK Total, Creatine Kinase 80 U/L (26-192); Calcium,Total 8.8 mg/dL (8.5-10.1); Chloride 108 mmol/L (98-107); Creatinine, Serum 1.01 mg/dL (0.55-1.02); EST Glomerular Filtration Rate 58 mL/min (>60); Est Glom Filt Rate - Afr Amer 71 mL/min (>60); Globulin 3.3 g/dL (2.2-4.2); Glucose 109 mg/dL (74-106); Magnesium 2.4 mg/dL (1.6-2.6); Potassium 4.2 mmol/L (3.5-5.1); Protein, Total 6.6 g/dL (6.4-8.2); Sodium Level 140 mmol/L (136-145)
== END ==
PROVIDERS: PCP Family Medicine; Referring Provider Family Medicine; Visit Provider Family Medicine
DX: M79.18 Myalgia, other site (principal)
CPT/HCPCS: 36415; 80053; 82550; 83735; 85025

== ENCOUNTER 2021-10-10 10:00 | Outpatient (RCR) | payer MEDICARE, BC, SELFPAY ==
--- NOTE | 2021-09-14 10:00 | HP.PTEVAL_ITS ---
Patient's Visit Information IAN PINEDO is a 66 year old F referred to Physical Therapy by Dr. Robert Boland MD with a diagnosis of MYALGIES,DECONDITIONED. Date of Evaluation: 09/14/21 Physical Therapist: Maury Diamond, PT, Cert MDT, OCS - Visit Plan Frequency: 1x/Week Duration: 6 Weeks Plan: PT INTERVETIONS DLS ,POSTURAL EX'S, ,LEF FLEXABLITY ,LE STRENGTHENING AND FUNCTIONAL STRENGTHNEING/CONDTIONING - Subjective This 66 female presents to physical therapy with myalgia and deconditioned. This patient lumbar pain for many years. Patient has had recent episode of muscle spasms. Patient has had 6 epidural injections which helped Dr. Danielson . Patient most recently noticed more weakness in legs and back pain. Patient seen DR recommended PT . Trimodal and gabapentin for back. Patient has h/o lumbar fusion 2007. Aggravating factors standing, bending .lifting ,stairs Alleviating factors rest ,injection ,on the move ,walking. Denies paresthesia/tingling. Coughing/sneezing-. Bowel/bladder-. Patient has prior PT. Patient had to retire from work. Patient pain affects QOL and housework tasks. Patient has had MRI/x- rays past 2 months. SOCIAL: . VOCATION: retired - Pain Bilateral Back Pain Intensity (Out of 10): 2 Pain Intensity Range: 10 - Objective POSTURE: mild forward posture. GAIT: reciprocal pattern. NEURO: denies paresthesia/tingling ,reflexes L3-4,L4-5,L5-S1 2/3. SYMITIES: align. PALAPTION: unremarkable. LUMBAR ROM: flexion min loss, extension mod loss ,side glides min loss. FLEXABILITY: hamstring WFL - Special Tests L/S Slump test left side: Negative L/S Slump test right side: Negative L/S Left Straight Leg Raise: Negative L/S Right Straight Leg Raise: Negative Lumbar Standing: Flexion - Mechanical Response: No effect Lumbar Standing: Flexion - Symptoms During Testing: No effect Lumbar Standing: Flexion - Symptoms After Testing: No effect Lumbar Standing: Extension - Mechanical Response: No effect Lumbar Standing: Extension - Symptoms During Testing: No effect Lumbar Standing: Extension - Symptoms After Testing: No effect Lumbar Standing: Right Side Glides - Mechanical Response: No effect Lumbar Standing: Right Side English - Symptoms During Testing: No effect Lumbar Standing: Right Side English - Symptoms After Testing: No effect Lumbar Standing: Left Side English - Mechanical Response: No effect Lumbar Standing: Left Side English - Symptoms During Testing: No effect Lumbar Standing: Left Side English - Symptoms After Testing: No effect - Balance/Special Test Scores Oswestry Low Back Score: 22 - Goals Goal 1:: I with HEP for lumbar pain Goal Time Frame: 4-6 Weeks Goal 2:: Patient to improve posture /body mechanics Goal Time Frame: 4-6 Weeks Goal 3:: Patient to demonstrate 50% improvement with decrease pain to improve function Goal Time Frame: 4-6 Weeks Goal 4:: Patient to improve lumbar ROM for function of recovery Goal Time Frame: 4-6 Weeks Goal 5:: Patient to improve back owestry score by 5 points to improve function. Goal Time Frame: 4-6 Weeks - Rehabilitation Potential Physical Therapy Diagnosis: This has h/o lumbar laminectomy fusion 2007 with current pain lumbar which patient has had several epidural injections with current impairments with weakness deconditioned thus benefit from skilled PT Rehabilitation Potential: Good - Anticipated Interventions Patient/Client Instruction: Educate patient on: Condition, Plan of Care For the Purpose of:: To decrease pain, To increase ROM, To increase oxygenation perfusion, To improve ability to perform ADL's, To increase tolerance to activity/condition/position, To improve performance and independence with ADL's, To improve ability of physical actions for home/community/work/leisure, To improve health of tissue, To decrease soft tissue restriction, To increase flexibility/ROM, To prevent re-injury Therapeutic Exercise to Include: Strength training, Endurance training, Balance training, Body mechanics, Postural training, Flexibilty training, Dynamic Lumbar Stabilization For the Purpose of:: To decrease pain, To increase ROM, To increase oxygenation perfusion, To improve ability to perform ADL's, To increase tolerance to activity/condition/position, To improve ability of physical actions for home/community/work/leisure, To improve health of tissue, To decrease soft tissue restriction Thank you for the opportunity to evaluate your patient. For Medicare and Medicare HMO plans, please review the plan of care and approve it. It will need to be FAXED BACK to us at [phone] for Medicare purposes. For Medicare only, by signing this I certify the plan of care. Please let me know if there are questions or concerns regarding this plan of care. Physician Signature: Date:
--- NOTE | 2021-10-10 10:28 | HP.PTDCSUM ---
It has been my pleasure to treat IAN PINEDO referred by Dr. Robert Boland MD, with the diagnosis of MYALGIES,DECONDITIONED for a total of 5 visit(s). Discharge Date: 10/10/21 Please see the following information for a summary of their discharge status. Subjective: Doing well no pain. ready for d/c Bilateral Back Pain Intensity (Out of 10): 0 % Improvement: 80 Objective/Function: Rico tx well with progression of increasing sets and ressistance with weight ,..no pain and approp fatigue. . POSTURE: WFL. GAIT: RECIPROCAL PATTERN. MMT: BLE 4/5. LUMBAR ROM: FLEXION MIN LOSS ,EXTENSION MIN LOSS Goal 1:: I with HEP for lumbar pain Goal Progress: Goal Met Goal 2:: Patient to improve posture /body mechanics Goal Progress: Goal Met Goal 3:: Patient to demonstrate 50% improvement with decrease pain to improve function Goal Progress: Goal Met Goal 4:: Patient to improve lumbar ROM for function of recovery Goal Progress: Goal Met Goal 5:: Patient to improve back owestry score by 5 points to improve function. Goal Progress: Goal Met Plan: D/C TO [facility] Discharge Comments: [facility] If there are questions or concerns regarding this patient's physical therapy, please feel free to call me at [phone]. Thank you for the referral of this patient. Sincerely, Maury Diamond, PT, Cert MDT, OCS Balance/Gait/Functional tests - Balance/Special Test Scores Oswestry Low Back Score: 0
== END 2021-10-10 19:00 | disposition home or self-care (01) ==
LOC: PT 10:00
PROVIDERS: PCP Family Medicine; Referring Provider Family Medicine; Visit Provider Family Medicine
DX: M54.9 Dorsalgia, unspecified (principal)
CPT/HCPCS: 97110; 97162

== ENCOUNTER 2021-11-08 09:43 | Outpatient (CLI) | payer MEDICARE, BC, SELFPAY ==
--- NOTE | 2021-11-08 09:46 | BI_ITS ---
MAMMOGRAPHY - BILATERAL SCREENING REASON FOR EXAM: Female, 66 years old. Routine annual screening examination. PERTINENT HISTORY: Non-contributory. TECHNIQUE: Digital bilateral breast araseli (3D mammographic acquisition) in the CC and MLO projections. 2-D mediolateral oblique (MLO) and craniocaudad (CC) views of both breasts were obtained. CAD: Full Field Digital Mammography with Computer Added Detection was performed. COMPARISON: Comparison is made with prior study dated 11/07/2020 and 11/02/2019. FINDINGS: Breast Composition: There are scattered areas of fibroglandular density. There are no dominant masses or suspicious calcifications. Stable well-defined 5 mm nodule in the upper outer aspect of the left breast. Prior sonogram demonstrated this to be a small cyst. Stable appearance of the bilateral axillary lymph nodes. Stable asymmetry of breast tissue where more breast tissue is seen in the upper outer quadrant of the left breast as compared to the right side. No other significant abnormalities are identified. There has been no significant change since the prior study. BI/SCREENING MAMM (CAD), BILAT IMPRESSION: Stable bilateral screening mammogram. Yearly follow-up mammogram recommended. (A) ASSESSMENT CATEGORY: BIRADS Category 2: Benign. A letter regarding these results will be sent to the patient by the facility within 30 days. Approximately 10% of breast cancers are not detected by mammography. A normal mammogram should not delay biopsy of a clinically suspicious abnormality. [id number] Electronically Signed: Ignacio Vivas MD at 10:59 EST ,
== END 2021-11-08 23:59 | disposition home or self-care (01) ==
LOC: OPBI 09:44
PROVIDERS: PCP Family Medicine; Referring Provider Family Medicine; Visit Provider Family Medicine
DX: Z12.31 Encounter for screening mammogram for malignant neoplasm of breast (principal)
CPT/HCPCS: 77067

== ENCOUNTER 2022-01-09 07:15 | Outpatient (CLI) | payer MEDICARE, BC, SELFPAY ==
--- NOTE | 2022-01-09 07:16 | MRI_ITS ---
STUDY: MRA OF THE HEAD WITHOUT CONTRAST REASON FOR EXAM: Female, 66 years old. Follow-up left carotid infundibulum vs aneurysm TECHNIQUE: 3-D ewjw-cm-eapyps (TOF) imaging was performed with MIPs. The study was performed unenhanced. COMPARISON: MRI of the brain dated JANUARY 09, 2022. MRA of the head dated July 03, 2021 FINDINGS: Normal bilateral petrous carotid arteries. Mild tortuous elongation of the right cavernous carotid artery with a normal supraclinoid bifurcation. Moderate tortuous elongation of the left cavernous carotid artery with a normal supraclinoid bifurcation. 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 This is unchanged from the prior study. No demonstrated aneurysmal dilatation or focal aneurysm outpouching of the left cavernous ICA. 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 Normal left A1 segments of the anterior cerebral artery. Normal intact anterior communicating artery (ACOM). Normal bilateral A2 segments of the anterior cerebral arteries. Normal right M1 and M2 segments of the middle cerebral arteries, with a normal M1 bifurcation. Normal left M1 and M2 segments of the middle cerebral arteries, with a normal M1 bifurcation. There is non-visualization of the right posterior communicating artery (PCOM). There is non-visualization of the left posterior communicating artery (PCOM). Normal bilateral vertebral arteries. Normal basilar artery with a normal basilar bifurcation. The visualized bilateral superior cerebellar (SCA) arteries are normal. Normal bilateral P1, P2 and visualized P3 segments of the posterior cerebral arteries. There is no demonstrated aneurysm of the [place]. There is no major vessel occlusion or hemodynamically significant stenosis. There is no demonstrated abnormality of the visualized brain. MRI/MRA Head ONLY without Contrast IMPRESSION: 1. There is no demonstrated aneurysm of the [place]. There is no major vessel occlusion or hemodynamically significant stenosis. 2. 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 This is unchanged from the prior study. No demonstrated aneurysmal dilatation or focal aneurysm outpouching of the left cavernous ICA. Electronically Signed: José Miguel Brown MD at 14:14 EDT ,
--- NOTE | 2022-01-09 07:16 | MRI_ITS ---
STUDY: MRI BRAIN WITH CONTRAST REASON FOR EXAM: Female, 66 years old. 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 aneurysm vs infundib -- TECHNIQUE: Standardized multiplanar fat and water weighted pulse sequences were obtained. 15ML IV DOTAREM was administered for the contrast portion of the examination. COMPARISON: MRI of the brain dated November 20, 2017 FINDINGS: There is mild cerebral atrophy with widening of the extra-axial spaces and ventricular dilatation. There are a limited number of small white matter hyperintensities, distributed throughout the deep white matter tracts of the cerebral hemispheres, consistent with mild chronic white matter ischemic changes. Normal T2* images of the brain without demonstrated susceptibility artifact. There is no demonstrated hemosiderin stain. There is no evidence for recent intracranial ischemia or other cause of cytotoxic edema on diffusion weighted imaging (DWI). Normal bilateral basal ganglia. Normal thalami. There is no extra-axial fluid accumulation. Normal flow voids within the major intracranial circulation suggesting patency by spin echo criteria. Normal venous enhancement. There is no enhancing intra-axial or extra-axial abnormality. Normal sella turcica, pituitary gland, infundibular stalk, optic chiasm and hypothalamus. Normal tectal plate and pineal gland. Normal midbrain, yue and medulla. Normal cerebellum. Normal basal cisterns. Normal bilateral temporal bones. Normal bilateral internal auditory canals. No demonstrated orbital abnormality, within the constraints of a routine brain study. Normal visualized paranasal sinuses. Normal calvarium and skull base. Normal visualized soft tissue structures. Normal visualized upper cervical spine. IMPRESSION: Involutional changes of the brain, as described above. STUDY: MRI ORBITS WITH AND WITHOUT CONTRAST REASON FOR EXAM: Female, 66 years old. 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 aneurysm vs infundib -- TECHNIQUE: Standardized fat and water weighted pulse sequences were obtained in all 3 orthogonal planes, pre-and post contrast administration. 15ML IV DOTAREM was administered for the contrast portion of the examination. COMPARISON: MRI of the orbits dated November 20, 2017 FINDINGS: Normal bilateral globes. Normal bilateral optic nerve sheath complexes and optic nerves. Normal bilateral intraconal and extraconal spaces. Normal bilateral extraocular muscles. No visualized optic neuritis. Normal optic chiasm and post-chiasmatic tracts. Normal sella turcica, pituitary gland, infundibular stalk, and hypothalamus. Normal bilateral cavernous sinuses. Normal tectal plate and pineal gland. Normal flow voids within the major intracranial circulation suggesting patency by spin echo criteria. Normal size of the ventricles and extra-axial spaces for the patient''s age. Normal white matter tracts of the supratentorial brain. Normal bilateral basal ganglia. Normal thalami. There is no extra-axial fluid accumulation. Normal midbrain, yue and medulla. Normal cerebellum. Normal basal cisterns. MRI/Brain W/WO Contrast IMPRESSION: Normal enhanced and unenhanced MRI of the orbits. Electronically Signed: José Miguel Brown MD at 13:58 EDT ,
[2022-01-09 07:52] LABS: Erythrocyte Sedimentation Rate 14 mm/hr (0-30)
[2022-01-09 07:54] LABS: Hematocrit 44.8 % (37-47); Hemoglobin 14.5 g/dL (12.0-15.0); Mean Corp Hgb Conc 32.4 g/dL (32-36); Mean Corpuscular Hgb 30.4 pg (27.0-32.0); Mean Corpuscular Volume 93.9 fL (81-99); Mean Platelet Vol. 10.6 fl (6.2-12.0); Platelet Count 284 K/mm3 (150-450); RBC Distribution Width CV 12.5 % (11.6-14.6); RBC Distribution Width SD 43.4 fl (35.1-43.9); Red Blood Count 4.77 M/mm3 (4.2-5.4); White Blood Count 6.2 K/mm3 (4.4-11.0)
[2022-01-09 07:55] LABS: CREATININE FINGERSTICK 1.3 mg/dL (0.55-1.02)
[2022-01-09 08:25] LABS: AST(SGOT) 12 U/L (15-37); Alanine Aminotransfer ALT/SGPT 19 U/L (13-56); Albumin, Serum 3.6 g/dL (3.2-5.0); Alkaline Phosphatase 96 U/L (45-117); Anion Gap 6 (5-15); BUN 31 mg/dL (7-18); BUN/Creat Ratio 25.4 RATIO (10-20); CRP < 2.90 mg/L (0.0-3.0); Calcium,Total 8.5 mg/dL (8.5-10.1); Chloride 103 mmol/L (98-107); Creatinine, Serum 1.22 mg/dL (0.55-1.02); EST Glomerular Filtration Rate 47 mL/min (>60); Est Glom Filt Rate - Afr Amer 57 mL/min (>60); Globulin 3.5 g/dL (2.2-4.2); Glucose 101 mg/dL (74-106); Potassium 4.2 mmol/L (3.5-5.1); Protein, Total 7.1 g/dL (6.4-8.2); Sodium Level 138 mmol/L (136-145); Thyroid Stim Hormone (TSH) 2.23 uIU/mL (0.358-3.74)
[2022-01-10 21:24] LABS: ANTINUCLEAR ANTIBODIES DIRECT Negative (Negative)
[2022-01-12 21:07] LABS: ACHR Recep AB, Blocking 13 % (0-25)
== END 2022-01-09 23:59 | disposition home or self-care (01) ==
PROVIDERS: PCP Family Medicine; Referring Provider Psychiatry & Neurology Neurology; Visit Provider Psychiatry & Neurology Neurology
DX: I67.1 Cerebral aneurysm, nonruptured (principal); H49.22 Sixth [abducent] nerve palsy, left eye; H53.2 Diplopia; R07.2 Precordial pain
CPT/HCPCS: 36415; 70544; 70553; 80053; 83519; 84443; 85027; 85652; 86038; 86140; 86225; 86235; A9575

== ENCOUNTER → 2022-01-19 | Outpatient (CLI) | payer MEDICARE, BC, SELFPAY ==
--- NOTE | 2022-01-19 08:46 | NEURO ---
NCS and/or EMG Patient Report Ordering Doctor: Rboert Boland DATE OF SERVICE: 01/19/22 Indication: Pain and stiffness in the right hand. No associated sensory disturbance. No localized or radicular neck pain. Evaluate for peripheral nerve injury. Findings: Nerve conduction studies were performed in the right upper extremity. The right median motor study recording the abductor pollicis brevis showed a normal amplitude, normal distal latency and normal conduction velocity. The right ulnar motor study recording the abductor digiti minimi showed a normal amplitude, normal distal latency and normal conduction velocity. No conduction block or focal slowing was present across the elbow. The right median sensory response recording digit two showed a normal amplitude, latency and conduction velocity. The right ulnar sensory response recording digit five showed a normal amplitude, latency and conduction velocity. The right radial sensory response recording over the extensor snuff box showed a normal amplitude, latency and conduction velocity. Right median-ulnar lumbrical / interosseous motor latencies showed a normal median latency compared to the ulnar. Needle EMG of the right upper extremity and cervical paraspinal muscles was performed. No denervation was seen in any muscle. All motor unit morphology, activation and recruitment patterns were normal. Impression: This is a normal study. There is no electrophysiologic evidence of entrapment neuropathy in the right upper extremity. In addition, there is no electrophysiologic evidence of cervical radiculopathy, brachial plexopathy or other peripheral neuropathy in the right upper extremity. Dada Lovett D.O. Multi Select Codes Neurology Neurology Interp Codes: 95396-90 Musc test done w/n test comp (interp) and 64256-80 Nrv cndj test 7-8 studies (interp)
== END | disposition home or self-care (01) ==
LOC: PSN 07:15
PROVIDERS: PCP Family Medicine; Referring Provider Family Medicine; Visit Provider Family Medicine
DX: R29.898 Other symptoms and signs involving the musculoskeletal system (principal)
CPT/HCPCS: 95886; 95910

== ENCOUNTER → 2022-03-15 | Outpatient (CLI) | payer MEDICARE, BC, SELFPAY ==
[2022-03-15 15:26] LABS: Albumin, Serum 3.7 g/dL (3.2-5.0); BUN 25 mg/dL (7-18); BUN/Creat Ratio 23.1 RATIO (10-20); Chloride 106 mmol/L (98-107); Creatinine, Serum 1.08 mg/dL (0.55-1.02); EST Glomerular Filtration Rate 54 mL/min (>60); Est Glom Filt Rate - Afr Amer 65 mL/min (>60); Glucose 99 mg/dL (74-106); Magnesium 2.6 mg/dL (1.6-2.6); Potassium 4.3 mmol/L (3.5-5.1); Sodium Level 139 mmol/L (136-145)
[2022-03-15 15:33] LABS: PTHIN 57.6 pg/mL (18.4-80.1)
[2022-03-15 15:34] LABS: Vitamin D,25 Hydroxy 30.8 ng/mL
[2022-03-15 15:39] LABS: Microalbumin,Random Urine 32.6 mg/L (NO RANGE EST.); Microalbumin:Creatinine Ratio 24.7 mg/g CRE (<30 mg/g CRE)
== END | disposition home or self-care (01) ==
LOC: MFPLAB 11:26
PROVIDERS: PCP Family Medicine; Referring Provider Family Medicine; Visit Provider Family Medicine
DX: N18.31 Chronic kidney disease, stage 3a (principal)
CPT/HCPCS: 36415; 80069; 82043; 82306; 82570; 83735; 83970

== ENCOUNTER → 2022-08-09 | Outpatient (CLI) | payer MEDICARE, BC, SELFPAY ==
--- NOTE | 2022-08-09 09:53 | RAD_ITS ---
STUDY: X-RAY - RIGHT KNEE REASON FOR EXAM: Female, 67 years old. Pain. TECHNIQUE: 4 view(s) of the knee. COMPARISON: None. FINDINGS: Osteopenia. Normal visualized distal femur. Normal visualized proximal tibia and fibula. Normal proximal tibiofibular articulation. Mild medial compartmental arthrosis. Normal lateral femorotibial compartment. Slight lateral tilt and subluxation of the patella with mild arthrosis of the lateral patellofemoral compartment. Prepatellar and distal anterior thigh soft tissue swelling. RAD/Knee 4 or More Views IMPRESSION: Osteopenia with medial and patellofemoral compartmental arthrosis. Prepatellar and anterior distal thigh soft tissue swelling. No acute abnormality or erosive changes. Electronically Signed: Vega Schofield, at 10:33 EST ,
== END | disposition home or self-care (01) ==
LOC: MTRAD 09:52
PROVIDERS: PCP Family Medicine; Referring Provider Nurse Practitioner Family; Visit Provider Nurse Practitioner Family
DX: M25.561 Pain in right knee (principal)
CPT/HCPCS: 73564

== ENCOUNTER 2022-10-26 15:30 | Outpatient (RCR) | payer MEDICARE, BC, SELFPAY ==
--- NOTE | 2022-10-03 16:25 | HP.PTEVAL_ITS ---
Patient's Visit Information IAN PINEDO is a 67 year old F referred to Physical Therapy by Dr. Robert Boland MD with a diagnosis of MEDIAL KNEE COMPARTMENT ARTHROSIS , BILATERAL ,RIGHT KNEE PAIN WORSE THEN L. Date of Evaluation: 10/03/22 Physical Therapist: Maury Diamond, PT, Cert MDT, OCS - Visit Plan Frequency: 2x /Week Duration: 4 Weeks Plan: PT INTERVENTIONS ROM/FLEXABLITY ,STRENGTHNEING QUADS/HAMS/HIP BILATERAL AND FUNCTIONAL STRENGTHNEING - Subjective This 67 y/o female presents to physical therapy with right > left knee pain. Patient has knee pain for several years . Patient pain persisted overtime. Tried PT in past for lumbar. Patient seen DR had x-rays showed patellofemoral arthrosis . Patient located lateral patella . Pain described as ache constant. Patient denies paresthesia/tingling. Aggravating squatting/kneeling ,stairs ,extended walking/standing. Patient pain affects sleeping. Patient has h/o back pain. Patient knee pain affects QOL and function . MEDS : tram[employer]. VOCATION: retired. SOCIAL: - Pain Right Knee Pain Intensity (Out of 10): 2 Pain Intensity Range: 10 - Objective POSTURE: mild forward posture. GAIT: reciprocal pattern. PALAPTION: unremarkable. NEUROP: denies paresthesia/tingling. AROM KNEE : 0-140 degrees supine flexion. MMT( peak force) quads 27.8,hamstrings 26.7.hip flexion 15.3,hip abduction 8.9. STAIRS: alternating with rails - Special Tests R Knee Lore - Meniscus: Negative R Knee Jero - ACL: Negative R Knee Anterior Drawer - ACL: Negative R Knee Valgus - MCL: Negative R Knee Varus - LCL: Negative R Knee Patellar Apprehension - PFS: Negative R Knee Patellar Grind - PFS: Negative L Knee Lore - Meniscus: Negative L Knee Jero - ACL: Negative L Knee Posterior Drawer - PCL: Negative L Knee Posterior Sag - PCL: Negative L Knee Valgus - MCL: Negative L Knee Varus - LCL: Negative L Knee Patellar Apprehension - PFS: Negative L Knee Patellar Grind - PFS: Negative - Balance/Special Test Scores Lower Extremity Functional Score: 35 - Goals Goal 1:: Patient to be I with HEP for knee Goal Time Frame: 4-6 Weeks Goal 2:: Patient to demonstrate 50 % improvement with improved function and less pain Goal Time Frame: 4-6 Weeks Goal 3:: Patient to improve LFES score by 5 points mary improve QOL and function Goal Time Frame: 4-6 Weeks Goal 4:: Patient improve LFES score by 5 points or > to improve function and QOL Goal Time Frame: 4-6 Weeks Goal 5:: Patient to improve ability to walk and stand extended distances > 30mins to improve function Goal Time Frame: 4-6 Weeks Goal 6:: PT INTERVENTIONS ROM/FLEXABLITY ,STRENGTHNEING QUADS/HAMS/HIP BILATERAL AND FUNCTIONAL STRENGTHNEING - Rehabilitation Potential Physical Therapy Diagnosis: Patient has knee pain with weakness in hips > quads impairs gait ,stairs and function thus benefit from skilled PT Rehabilitation Potential: Good - Anticipated Interventions Patient/Client Instruction: Educate patient on: Condition, Plan of Care For the Purpose of:: To decrease pain, To increase ROM, To improve muscle performance and motor function, To improve ability to perform ADL's, To increase tolerance to activity/condition/position, To improve ability of physical actions for home/community/work/leisure, To improve health of tissue, To decrease soft tissue restriction, To increase flexibility/ROM, To improve endurance, To improve balance Therapeutic Exercise to Include: Strength training, Balance training, Postural training, Flexibilty training, Active ROM For the Purpose of:: To decrease pain, To increase ROM, To improve muscle performance and motor function, To improve ability to perform ADL's, To increase tolerance to activity/condition/position, To improve ability of physical actions for home/community/work/leisure, To improve health of tissue, To decrease soft tissue restriction, To increase flexibility/ROM Thank you for the opportunity to evaluate your patient. For Medicare and Medicare HMO plans, please review the plan of care and approve it. It will need to be FAXED BACK to us at [phone] for Medicare purposes. For Medicare only, by signing this I certify the plan of care. Please let me know if there are questions or concerns regarding this plan of ca re. Physician Signature: Date:
--- NOTE | 2023-04-10 13:51 | HP.PTDCSUM ---
Discharge Summary D/C summary: It has been my pleasure to treat IAN PINEDO referred by Dr. Robert Boland MD, with the diagnosis of MEDIAL KNEE COMPARTMENT ARTHROSIS , BILATERAL ,RIGHT KNEE PAIN WORSE THEN L for a total of 7 visit(s). Discharge Date: Please see the following information for a summary of their discharge status. Subjective Subjective: Doing well ..back is sore Pain Right Knee: Pain Intensity (Out of 10): 0 Overall Improvement % Improvement: 75 Objective Objective/Function: Doing well with strengthening and Rom to improve function Goals Goal 1:: Patient to be I with HEP for knee Goal 2:: Patient to demonstrate 50 % improvement with improved function and less pain Goal 3:: Patient to improve LFES score by 5 points mary improve QOL and function Goal 4:: Patient improve LFES score by 5 points or > to improve function and QOL Goal 5:: Patient to improve ability to walk and stand extended distances > 30mins to improve function Goal 6:: PT INTERVENTIONS ROM/FLEXABLITY ,STRENGTHNEING QUADS/HAMS/HIP BILATERAL AND FUNCTIONAL STRENGTHNEING Plan Plan: D/C D/C Information d/c sentence: If there are questions or concerns regarding this patient's physical therapy, please feel free to call me at [phone]. Thank you for the referral of this patient. Sincerely, Maury Diamond, PT, Cert MDT, OCS Balance/Gait/Functional tests Balance/Special Test Scores Oswestry Low Back Score: 3 Lower Extremity Functional Score: 35
== END 2022-10-26 19:00 | disposition home or self-care (01) ==
LOC: PT 15:30
PROVIDERS: PCP Family Medicine; Referring Provider Family Medicine; Visit Provider Family Medicine
DX: M17.0 Bilateral primary osteoarthritis of knee (principal)
CPT/HCPCS: 97110; 97162

== ENCOUNTER → 2022-12-20 | Outpatient (CLI) | payer MEDICARE, BC, SELFPAY ==
[2022-12-20 15:10] LABS: Absolute Lymphocyte Count 1.19 X10^3/uL (0.83-4.51); Absolute Neutrophil Count 3.1 X10^3/uL (2.0-7.7); Basophil# 0.03 X10^3/uL; Basophil% 0.6 % (0-1); Eosinophil# 0.12 X10^3/uL; Eosinophils% 2.5 % (0-5); Hematocrit 43.9 % (37-47); Lymphocyte # 1.19 X10^3/ul (0.83-4.51); Lymphocyte % 24.4 % (19-41); Mean Corp Hgb Conc 31.9 g/dL (32-36); Mean Corpuscular Hgb 30.2 pg (27.0-32.0); Mean Corpuscular Volume 94.8 fL (81-99); Mean Platelet Vol. 10.3 fl (6.2-12.0); Monocyte# 0.42 X10^3/uL; Monocyte% 8.6 % (0-10); NRBC Flagged by Analyzer 0 % (0-5); Neutrophil # 3.11 X10^3/uL (2.7-7.7); Neutrophil % 63.7 % (47-70); Platelet Count 360 K/mm3 (150-450); RBC Distribution Width CV 12.8 % (11.6-14.6); RBC Distribution Width SD 43.9 fl (35.1-43.9); Red Blood Count 4.63 M/mm3 (4.2-5.4); White Blood Count 4.9 K/mm3 (4.4-11.0)
[2022-12-20 15:35] LABS: Microalbumin,Random Urine 23.1 mg/L (NO RANGE EST.); Microalbumin:Creatinine Ratio 15.9 mg/g CRE (<30 mg/g CRE)
[2022-12-20 16:11] LABS: ALB/GLOB Ratio 1.4 RATIO (0.9-2.4); AST(SGOT) 15 U/L (15-37); Alanine Aminotransfer ALT/SGPT 22 U/L (13-56); Albumin, Serum 3.8 g/dL (3.2-5.0); Alkaline Phosphatase 99 U/L (45-117); Anion Gap 8 (5-15); BUN 26 mg/dL (7-18); Calcium,Total 9.1 mg/dL (8.5-10.1); Chloride 104 mmol/L (98-107); Creatinine, Serum 1.04 mg/dL (0.55-1.02); EST Glomerular Filtration Rate 56 mL/min (>60); Est Glom Filt Rate - Afr Amer 68 mL/min (>60); Globulin 2.8 g/dL (2.2-4.2); Glucose 99 mg/dL (74-106); Potassium 4.8 mmol/L (3.5-5.1); Protein, Total 6.6 g/dL (6.4-8.2); Sodium Level 141 mmol/L (136-145)
== END | disposition home or self-care (01) ==
LOC: MFPLAB 11:37
PROVIDERS: PCP Family Medicine; Referring Provider Family Medicine; Visit Provider Family Medicine
DX: N18.31 Chronic kidney disease, stage 3a (principal)
CPT/HCPCS: 36415; 80053; 82043; 82570; 85025

== ENCOUNTER → 2023-04-19 | Outpatient (CLI) | payer MEDICARE, BC, SELFPAY ==
--- NOTE | 2023-04-19 15:09 | RAD_ITS ---
INDICATION: RALES EXAMINATION/TECHNIQUE: X-RAY - XR Chest 2 Views COMPARISON: FINDINGS: LINES/DEVICES: None. LUNGS: No consolidation, edema or effusion. No pneumothorax. MEDIASTINUM AND CARDIOVASCULAR STRUCTURES: Cardiac silhouette not enlarged. Central airways and mediastinal contour are unremarkable. BONES AND SOFT TISSUES: Unremarkable. RAD/Chest PA and Lateral IMPRESSION: No radiographic evidence of acute cardiopulmonary disease. Electronically Signed: Cedric Smyth, at 15:58 EDT ,
[2023-04-19 17:36] LABS: Absolute Lymphocyte Count 1.15 X10^3/uL (0.83-4.51); Basophil# 0.02 X10^3/uL; Basophil% 0.4 % (0-1); Eosinophil# 0.16 X10^3/uL; Eosinophils% 3.4 % (0-5); Hematocrit 43.5 % (37-47); Hemoglobin 14.6 g/dL (12.0-15.0); Lymphocyte # 1.15 X10^3/ul (0.83-4.51); Lymphocyte % 24.2 % (19-41); Mean Corp Hgb Conc 33.6 g/dL (32-36); Mean Corpuscular Hgb 31.7 pg (27.0-32.0); Mean Corpuscular Volume 94.4 fL (81-99); Mean Platelet Vol. 9.5 fl (6.2-12.0); Monocyte# 0.39 X10^3/uL; Monocyte% 8.2 % (0-10); NRBC Flagged by Analyzer 0 % (0-5); Neutrophil # 3.02 X10^3/uL (2.7-7.7); Neutrophil % 63.6 % (47-70); Platelet Count 355 K/mm3 (150-450); RBC Distribution Width CV 12.9 % (11.6-14.6); RBC Distribution Width SD 44.4 fl (35.1-43.9); Red Blood Count 4.61 M/mm3 (4.2-5.4); White Blood Count 4.8 K/mm3 (4.4-11.0)
[2023-04-19 17:56] LABS: Erythrocyte Sedimentation Rate 11 mm/hr (0-30)
[2023-04-19 18:47] LABS: ALB/GLOB Ratio 1.1 RATIO (0.9-2.4); AST(SGOT) 16 U/L (15-37); Alanine Aminotransfer ALT/SGPT 23 U/L (13-56); Albumin, Serum 3.6 g/dL (3.2-5.0); Alkaline Phosphatase 88 U/L (45-117); Anion Gap 6 (5-15); BUN 19 mg/dL (7-18); BUN/Creat Ratio 19.8 RATIO (10-20); CRP 3.45 mg/L (0.0-3.0); Calcium,Total 8.9 mg/dL (8.5-10.1); Chloride 109 mmol/L (98-107); Creatinine, Serum 0.96 mg/dL (0.55-1.02); EST Glomerular Filtration Rate 62 mL/min (>60); Est Glom Filt Rate - Afr Amer 74 mL/min (>60); Globulin 3.2 g/dL (2.2-4.2); Glucose 95 mg/dL (74-106); Potassium 4.1 mmol/L (3.5-5.1); Protein, Total 6.8 g/dL (6.4-8.2); Sodium Level 143 mmol/L (136-145); Thyroid Stim Hormone (TSH) 2.14 uIU/mL (0.358-3.74)
[2023-04-22 12:13] LABS: Lyme Scn Total Ab w/Rflx Negative (Negative); PROEL- A/G Ratio 0.2 (0.7-1.7); PROEL- Alpha-1 Globulin 0.2 g/dL (0.0-0.4); PROEL- Alpha-2 Globulin 0.7 g/dL (0.4-1.0); PROEL- Gamma Globulin 0.7 g/dL (0.4-1.8); PROEL- Globulin, Total 5.2 g/dL (2.2-3.9); PROEL- TOTAL PROTEIN 6.2 g/dL (6.0-8.5)
[2023-04-22 16:14] LABS: ANTINUCLEAR ANTIBODIES DIRECT Negative (Negative)
== END | disposition home or self-care (01) ==
LOC: MTLAB 15:06
PROVIDERS: PCP Family Medicine; Referring Provider Family Medicine; Visit Provider Family Medicine
DX: R09.89 Other specified symptoms and signs involving the circulatory and respiratory systems (principal); R52 Pain, unspecified
CPT/HCPCS: 71046; 80053; 84165; 84443; 85025; 85652; 86038; 86140; 86225; 86235; 86618

== ENCOUNTER → 2023-04-27 | Outpatient (CLI) | payer MEDICARE, BC, SELFPAY ==
--- NOTE | 2023-04-27 08:50 | CT_ITS ---
STUDY: CT MAXILLOFACIAL SINUSES REASON FOR EXAM: Female, 67 years old. elevated inflammatory markers on labs. Sinus pressure w/o puss se RADIATION DOSAGE (If Supplied By Facility): CTDIvol = ( 29.38 ) mGy, DLP = ( 466.65 ) mGycm TECHNIQUE: The patient was scanned in a multi detector CT scanner. High resolution axial imaging was performed without the administration of intravenous contrast material. Sagittal and coronal images were reconstructed. Individualized dose optimization techniques were used for this CT. COMPARISON: None. FINDINGS: FRONTAL SINUSES: Normal aeration, without mucosal inflammatory disease. ETHMOIDAL SINUSES: Normal aeration, without mucosal inflammatory disease. MAXILLARY SINUSES: Normal aeration, without mucosal inflammatory disease. SPHENOIDAL SINUSES: Normal aeration, without mucosal inflammatory disease. There is patency of the bilateral maxillary infundibuli with normal uncinate processes, ethmoid bullae, and hiatus semilunaris. Large Bisi''s cell on the left. There are omkar bullosa of the bilateral turbinates. Normal bilateral inferior turbinates. Normal midline nasal septum. There is patency of the bilateral nasal airways. The visualized osseous structures are normal. The visualized bilateral orbital contents are normal. CT/Sinus/Facial Bone IMPRESSION: 1. No CT evidence of acute or chronic sinusitis. 2. Patent but stenotic ostiomeatal units bilaterally particularly on the left with a large Bisi''s cell on the left. 3. Bilateral omkar bullosa. Electronically Signed: Primo Nichole MD at 19:46 EDT ,
== END | disposition home or self-care (01) ==
LOC: CT 08:44
PROVIDERS: PCP Family Medicine; Referring Provider Family Medicine; Visit Provider Family Medicine
DX: J34.89 Other specified disorders of nose and nasal sinuses (principal)
CPT/HCPCS: 70486

== ENCOUNTER → 2023-10-16 | Outpatient (CLI) | payer MEDICARE, BC, SELFPAY ==
--- NOTE | 2023-10-16 10:26 | CDU_ITS ---
Reason For Study: Carotid Stenosis Rt. Velocities/BP Lt. Velocities/BP Prox CCA 94.2/19.4 cm/sec. Prox CCA 99.7/32.1 cm/sec. Mid CCA 77.8/15.7 cm/sec. Mid CCA 92.4/28.5 cm/sec. Dist CCA 85.1/24.8 cm/sec. Dist CCA 97.9/24.8 cm/sec. Prox ICA 83.3/26.7 cm/sec. Prox ICA 86.9/26.7 cm/sec. Mid ICA 71.8/29.5 cm/sec. Mid ICA 70.9/28.5 cm/sec. Dist ICA 116.2/43.1 cm/sec. Dist ICA 91.3/43.6 cm/sec. Rt. ICA/CCA = 1.5. Lt. ICA/CCA = 1.0. Prox ECA 98.9/15.1 cm/sec. Prox ECA 94.2/19.4 cm/sec. Rt. Vert. 48.6/15.7 cm/sec. Lt. Vert. 47.9/14.9 cm/sec. Right Extracranial There is homogeneous, smooth atherosclerotic plaque noted in the right common carotid artery. There is homogeneous, smooth atherosclerotic plaque noted in the right internal carotid artery. There is intimal thickening but no significant atherosclerotic plaque noted in the right external carotid artery. Antegrade flow is noted in the right vertebral artery. Left Extracranial There is heterogeneous, smooth atherosclerotic plaque noted in the left common carotid artery. There is heterogeneous, irregular atherosclerotic plaque noted in the left internal carotid artery. Lt ICA Prox/Bulb measures 0.87 cm in long axis. Lt ICA Mid measures 0.50 cm in long axis. There is intimal thickening but no significant atherosclerotic plaque noted in the left external carotid artery. Antegrade flow is noted in the left vertebral artery. Procedure Carotid Duplex [id number]. This is a Carotid Duplex examination using B-mode, color flow and specral Doppler. The exam was diagnostic. Exam performed in department. VL/Carotid Duplex Ultrasound Interpretation Summary Mild (<50%) stenosis right extracranial internal carotid. Mild (<50%) stenosis left extracranial internal carotid. Flow within the vertebral arteries is antegrade bilaterally. Ordering Physician: Shin Bee Referring Physician: Robert Boland MD Performed By: Arcadio Atkins RVT
== END | disposition home or self-care (01) ==
LOC: CVS 10:26
PROVIDERS: PCP Family Medicine; Referring Provider Surgery Vascular Surgery; Visit Provider Surgery Vascular Surgery
DX: I65.23 Occlusion and stenosis of bilateral carotid arteries (principal); I10 Essential (primary) hypertension
CPT/HCPCS: 93880

== ENCOUNTER → 2023-10-21 | Outpatient (CLI) | payer MEDICARE, BC, SELFPAY ==
--- NOTE | 2023-10-21 11:41 | RAD_ITS ---
INDICATION: chronic L sided symptoms. EXAMINATION/TECHNIQUE: X-RAY - XR Sinuses Paranasal Min 3 Views COMPARISON: CT scan of the sinuses of 04/27/2023 FINDINGS: There is no significant mucosal thickening. There are no air-fluid levels. The regional bones are grossly intact. RAD/Sinuses min 3 Views IMPRESSION: Negative sinus series. Electronically Signed: Dannie Abreu MD at 11:56 EST ,
[2023-10-21 16:13] LABS: ALB/GLOB Ratio 1.1 RATIO (0.9-2.4); AST(SGOT) 16 U/L (15-37); Alanine Aminotransfer ALT/SGPT 20 U/L (13-56); Albumin, Serum 3.7 g/dL (3.2-5.0); Alkaline Phosphatase 97 U/L (45-117); Anion Gap 6 (5-15); BUN 20 mg/dL (7-18); BUN/Creat Ratio 19.2 RATIO (10-20); Calcium,Total 8.9 mg/dL (8.5-10.1); Chloride 105 mmol/L (98-107); Creatinine, Serum 1.04 mg/dL (0.55-1.02); EST Glomerular Filtration Rate 56 mL/min (>60); Est Glom Filt Rate - Afr Amer 68 mL/min (>60); Globulin 3.5 g/dL (2.2-4.2); Glucose 88 mg/dL (74-106); Potassium 4.5 mmol/L (3.5-5.1); Protein, Total 7.2 g/dL (6.4-8.2); Sodium Level 138 mmol/L (136-145)
[2023-10-21 16:19] LABS: Microalbumin,Random Urine 26.4 mg/L (NO RANGE EST.); Microalbumin:Creatinine Ratio 15.3 mg/g CRE (<30 mg/g CRE)
[2023-10-21 16:24] LABS: Absolute Lymphocyte Count 1.14 X10^3/uL (0.83-4.51); Absolute Neutrophil Count 3.2 X10^3/uL (2.0-7.7); Basophil# 0.02 X10^3/uL; Basophil% 0.4 % (0-1); Eosinophil# 0.14 X10^3/uL; Eosinophils% 2.8 % (0-5); Hemoglobin 14.1 g/dL (12.0-15.0); Lymphocyte # 1.14 X10^3/ul (0.83-4.51); Lymphocyte % 23.1 % (19-41); Mean Corp Hgb Conc 31.3 g/dL (32-36); Mean Corpuscular Hgb 30.1 pg (27.0-32.0); Mean Corpuscular Volume 95.9 fL (81-99); Mean Platelet Vol. 11.2 fl (6.2-12.0); Monocyte# 0.39 X10^3/uL; Monocyte% 7.9 % (0-10); NRBC Flagged by Analyzer 0 % (0-5); Neutrophil # 3.24 X10^3/uL (2.7-7.7); Neutrophil % 65.6 % (47-70); Platelet Count 291 K/mm3 (150-450); RBC Distribution Width CV 13.2 % (11.6-14.6); RBC Distribution Width SD 46.5 fl (35.1-43.9); Red Blood Count 4.69 M/mm3 (4.2-5.4); White Blood Count 4.9 K/mm3 (4.4-11.0)
[2023-10-25 03:08] LABS: Immunoglobulin E 22 IU/mL (6-495)
== END | disposition home or self-care (01) ==
PROVIDERS: PCP Family Medicine; Referring Provider Family Medicine; Visit Provider Family Medicine
DX: N18.31 Chronic kidney disease, stage 3a (principal); J30.9 Allergic rhinitis, unspecified; J32.9 Chronic sinusitis, unspecified
CPT/HCPCS: 36415; 70220; 80053; 82043; 82570; 82785; 85025

== ENCOUNTER → 2024-01-10 | Outpatient (CLI) | payer MEDICARE, BC, SELFPAY ==
--- NOTE | 2024-01-10 10:06 | RAD_ITS ---
STUDY: X-RAY - LUMBAR SPINE REASON FOR EXAM: Female, 68 years old. PAIN TECHNIQUE: 5 view(s) of the lumbar spine were obtained. COMPARISON: April 13, 2020 FINDINGS: Normal lumbar lordosis. There is no substantial scoliosis. There is a normal alignment of the vertebrae. Posterior interbody fusion rods and L4 and L5. Laminectomies. Normal vertebral bodies and endplates. Normal disc space heights. The soft tissue structures are unremarkable. RAD/L/S Spine Min 4 Views IMPRESSION: Posterior interbody fusion L4-5. No acute disease. Electronically Signed: Melvin Cool MD at 20:57 EDT ,
== END | disposition home or self-care (01) ==
LOC: MTRAD 10:04
PROVIDERS: PCP Family Medicine; Referring Provider Clinical Nurse Specialist Adult Health; Visit Provider Clinical Nurse Specialist Adult Health
DX: M51.36 Other intervertebral disc degeneration, lumbar region (principal)
CPT/HCPCS: 72110

== ENCOUNTER → 2024-01-10 | Outpatient (CLI) | payer MEDICARE, BC, SELFPAY ==
[2024-01-10 15:46] LABS: Absolute Lymphocyte Count 1.15 X10^3/uL (0.83-4.51); Basophil# 0.02 X10^3/uL; Basophil% 0.4 % (0-1); Eosinophil# 0.11 X10^3/uL; Eosinophils% 1.9 % (0-5); Hemoglobin 14.7 g/dL (12.0-15.0); Lymphocyte # 1.15 X10^3/ul (0.83-4.51); Lymphocyte % 20.3 % (19-41); Mean Corpuscular Hgb 31.1 pg (27.0-32.0); Mean Corpuscular Volume 97.3 fL (81-99); Mean Platelet Vol. 10.2 fl (6.2-12.0); Monocyte# 0.41 X10^3/uL; Monocyte% 7.2 % (0-10); NRBC Flagged by Analyzer 0 % (0-5); Neutrophil # 3.97 X10^3/uL (2.7-7.7); Platelet Count 423 K/mm3 (150-450); RBC Distribution Width CV 12.7 % (11.6-14.6); RBC Distribution Width SD 45.1 fl (35.1-43.9); Red Blood Count 4.73 M/mm3 (4.2-5.4); White Blood Count 5.7 K/mm3 (4.4-11.0)
[2024-01-10 16:07] LABS: PTHIN 88.6 pg/mL (18.4-80.1)
[2024-01-10 16:10] LABS: Vitamin D,25 Hydroxy 27.6 ng/mL
[2024-01-10 16:31] LABS: ALB/GLOB Ratio 1.1 RATIO (0.9-2.4); AST(SGOT) 17 U/L (15-37); Alanine Aminotransfer ALT/SGPT 24 U/L (13-56); Albumin, Serum 3.8 g/dL (3.2-5.0); Alkaline Phosphatase 87 U/L (45-117); Anion Gap 4 (5-15); BUN 29 mg/dL (7-18); BUN/Creat Ratio 25.2 RATIO (10-20); Calcium,Total 8.7 mg/dL (8.5-10.1); Chloride 105 mmol/L (98-107); Cholesterol 255 mg/dL (200); Creatinine, Serum 1.15 mg/dL (0.55-1.02); EST Glomerular Filtration Rate 50 mL/min (>60); Est Glom Filt Rate - Afr Amer 60 mL/min (>60); Globulin 3.5 g/dL (2.2-4.2); Glucose 92 mg/dL (74-106); High Density Lipoprotein 66 mg/dL; Potassium 4.5 mmol/L (3.5-5.1); Protein, Total 7.3 g/dL (6.4-8.2); Sodium Level 137 mmol/L (136-145); Thyroid Stim Hormone (TSH) 1.71 uIU/mL (0.358-3.74); Triglycerides 88 mg/dL; Very Low Density Lipoprotein 18 mg/dL (5-40)
== END | disposition home or self-care (01) ==
LOC: MFPLAB 11:27
PROVIDERS: PCP Family Medicine; Visit Provider Family Medicine
DX: E78.5 Hyperlipidemia, unspecified (principal); N18.31 Chronic kidney disease, stage 3a; I65.23 Occlusion and stenosis of bilateral carotid arteries
CPT/HCPCS: 36415; 80053; 80061; 82306; 83970; 84443; 85025

== ENCOUNTER → 2024-01-28 | Outpatient (CLI) | payer MEDICARE, BC, SELFPAY ==
--- NOTE | 2024-01-28 14:22 | BI_ITS ---
MAMMOGRAPHY - BILATERAL SCREENING REASON FOR EXAM: Female, 68 years old. Routine annual screening examination. PERTINENT HISTORY: Non-contributory. TECHNIQUE: Digital bilateral breast jerson (3D mammographic acquisition) in the CC and MLO projections. 2-D mediolateral oblique (MLO) and craniocaudad (CC) views of both breasts were obtained. CAD: Full Field Digital Mammography with Computer Added Detection was performed. COMPARISON: Comparison is made with prior study dated November 08, 2021 and November 07, 2020. FINDINGS: Breast Composition: There are scattered areas of fibroglandular density. There are no dominant masses or suspicious calcifications. There is a stable well-defined 5 mm nodule in the upper outer aspect of the left breast. Prior sonogram demonstrated to be a small cyst. Stable bilateral fat containing axillary lymph nodes. Stable asymmetry of breast tissue where more breast tissue is seen in the upper outer quadrant of the left breast as compared to the right side. No other significant abnormalities are identified. There has been no significant change since the prior study. BI/SCRN MAMM (CAD)W/JERSON BILAT IMPRESSION: Stable bilateral screening mammogram. Yearly follow-up mammogram recommended. (A) ASSESSMENT CATEGORY: BIRADS Category 2: Benign. A letter regarding these results will be sent to the patient by the facility within 30 days. Approximately 10% of breast cancers are not detected by mammography. A normal mammogram should not delay biopsy of a clinically suspicious abnormality. [id number] Electronically Signed: Ignacio Vivas MD at 15:19 EDT ,
--- NOTE | 2024-01-28 14:22 | BD_ITS ---
STUDY: DUAL ENERGY X-RAY ABSORPTIOMETRY / DXA REASON FOR EXAM: Female, 68 years old. N95.9 TECHNIQUE: Bone Mineral Density (BMD) measurements of lumbar spine and bilateral hips were obtained. COMPARISON: Comparison is made with prior study dated June 07, 2009. FINDINGS: Lumbar Spine (L1-L4): g/cm2 (0.945) / T-score (-0.9) / Z-score (1.1) Findings are suggestive of normal bone density with a low fracture risk. Left Femur Total: g/cm2 (0.891) / T-score (-0.4) / Z-score (1.0) Left Femoral Neck: g/cm2 (0.658) / T-score (-1.7) / Z-score (0.0) Right Femur Total: g/cm2 (0.812) / T-score (-1.1) / Z-score (0.0) Right Femoral Neck: g/cm2 (0.636) / T-score (-1.9) / Z-score (-0.2) BD/Dexa Bone Density Study IMPRESSION: The patient is considered osteopenic as outlined below according to World Beni Organization (WHO) criteria with a moderate fracture risk. There has been worsening of bone density since the previous examination. Reference Information: The T-score is the number of standard deviations above or below the standard which is normal for young adults at their peak bone mineral density. The World Health Organization (WHO) interprets the T-scores as follows: Above -1 Normal bone density Between -1 and -2.5 Osteopenia Equal to / or below -2.5 Osteoporosis As a practical clinical guideline, osteopenia may be graded as follows: Mild -1 through -1.5 Moderate -1.6 through -2.0 Severe -2.1 through -2.4 The Z-score is the number of standard deviations above or below age-matched controls. A Z-score of less than -1.5 would be considered abnormal. References: 1. NIH Osteoporosis and Related Bone Diseases www osteo.org 2. International Society for Clinical Densitometry www iscd.org 3. National Osteoporosis Foundation www nof.org Electronically Signed: Ignacio Vivas MD at 15:29 EDT ,
== END | disposition home or self-care (01) ==
LOC: OPBD 14:21
PROVIDERS: PCP Family Medicine; Referring Provider Family Medicine; Visit Provider Family Medicine
DX: Z12.31 Encounter for screening mammogram for malignant neoplasm of breast (principal); N95.9 Unspecified menopausal and perimenopausal disorder
CPT/HCPCS: 77063; 77067; 77080

== ENCOUNTER → 2024-04-16 | Outpatient (CLI) | payer MEDICARE, BC, SELFPAY ==
--- NOTE | 2024-04-16 09:40 | RAD_ITS ---
STUDY: X-RAY - ESOPHAGUS (BARIUM SWALLOW) WITH FLUOROSCOPY REASON FOR EXAM: Female, 68 years old. Severe GERD and chest pain after eating. possible presbyesophagu TECHNIQUE: 16 view(s) of the esophagus were obtained following swallowing of barium. FLUOROSCOPY TIME (if supplied): (22 seconds) minutes/seconds. 5.22 mGy. COMPARISON: None. FINDINGS: There is no demonstrated esophageal foreign body. There is no demonstrated stricture or mucosal abnormality. Normal gastroesophageal junction, without a demonstrated hiatal hernia. The patient ingested a 12 mm tablet of barium without any issues. There is atherosclerotic calcification of the aortic arch with tortuosity of the descending aorta. Normal visualized pulmonary parenchyma. There are diffuse degenerative changes of the visualized thoracic spine. RAD/Esophagus Dual Contrast IMPRESSION: Normal plain film x-ray examination (barium swallow) of the esophagus. Electronically Signed: Ignacio Vivas MD at 15:17 EDT ,
== END | disposition home or self-care (01) ==
LOC: RAD 09:34
PROVIDERS: PCP Family Medicine; Referring Provider Family Medicine; Visit Provider Family Medicine
DX: K21.9 Gastro-esophageal reflux disease without esophagitis (principal); R13.19 Other dysphagia
CPT/HCPCS: 74221

== ENCOUNTER 2024-06-24 18:08 | Emergency (ER) | payer MEDICARE, BC, SELFPAY ==
[2024-06-24 18:09] VITALS: BP 156/75; PULSE 102; RESP 18; TEMP 36.6; O2SAT 98; BMI 27.8
--- NOTE | 2024-06-24 19:20 | EDS_ITS ---
HPI History of Present Illness Chief Complaint: Nausea/Vomiting Informant: patient Onset/Context/Timing Onset: Today Context: Gradual Onset Timing: Continuous Quality: Nauseated Location: Epigastric area Worsened by: Nothing Relieved by: Nothing Narrative Narrative: Patient presents with nausea and vomiting that began today. Patient states she had upper endoscopy performed yesterday. Patient states that she started having nausea and vomiting today. Patient states that her was yellow and green. Patient denies any hematemesis or coffee-ground emesis. Patient admits to a nauseated sensation over her epigastric area. Patient states nothing makes it better nothing makes it worse. Patient denies any diarrhea, melena, or hematochezia. Patient states that on her endoscopy, they had to use a balloon to open up the opening of her stomach into her small intestine. Patient states. She contacted her slide attendant who told her to come to the emergency department to make sure she did not have an obstruction. [facility] Medical History IBS (irritable bowel syndrome) Frequent headaches Home Medications ?Medication ?Instructions ?Recorded ?Last Taken ?Type gabapentin 300 mg capsule 600 mg PO QHS Back Pain 06/29/17 06/28/17 History tramadol 50 mg tablet 50 mg PO QHS Back Pain 06/29/17 06/28/17 History pantoprazole 40 mg tablet,delayed 40 mg PO BID #60 TABLETS 06/30/17 Unknown Rx release magnesium oxide 400 mg (241.3 mg 400 mg PO BID 06/24/24 Unknown History magnesium) tablet ondansetron 4 mg disintegrating 4 mg PO Q8H PRN PRN Nausea #10 tabs 06/24/24 Unknown Rx tablet Allergy/AdvReac Type Severity Reaction Status Date / Time nitroglycerin AdvReac Severe Other Verified 06/24/24 18:09 amlodipine AdvReac other Verified 06/24/24 18:09 Family History Father Myocardial infarction Surgical History Hx of tonsillectomy H/O radiofrequency ablation (RFA) of nerve of lumbar spine H/O shoulder surgery History of spinal fusion Social History Smoking Status: Former smoker alcohol intake: never substance use type: does not use what type of physical activity do you participate in: none ROS ROS ED Constitutional Constitutional ED: Denies chills or fever(s) Eyes Eyes: Denies blurry vision or change in vision ENT ENT ED: Denies rhinorrhea or sore throat Cardiovascular Cardiovascular: Denies chest pain or palpitations Respiratory/Chest Respiratory/Chest: Denies cough or dyspnea Gastrointestinal Gastrointestinal: Reports abdominal pain, nausea and vomiting; Denies diarrhea or melena Genitourinary Genitourinary ED: Denies dysuria or hematuria Musculoskeletal Musculoskeletal: Reports back pain; Denies neck pain Integumentary Denies abscess or rash Neurologic Neurologic: Reports headache(s); Denies weakness Allergic/Immunologic Allergic/Immunologic ED: Denies mouth swelling or urticaria EXAM Physical Exam Const Vital Signs: 06/24/24 18:09 06/24/24 20:08 06/24/24 21:43 Temperature 97.9 F 97.9 F Temperature Source Temporal Pulse Rate 102 H 72 85 Respiratory Rate 18 16 16 Blood Pressure 156/75 H 170/81 H 150/98 H Blood Pressure Mean 102 110 115 Pulse Ox 98 97 93 Oxygen Delivery Method Room Air Room Air Positive well nourished and well developed General Appearance ED: well developed and NAD HEENT Reports moist mucous membranes Neck supple and no JVD Resp normal respiratory effort and clear to auscultation bilaterally Cardio regular rate and regular rhythm GI non-distended Palpation: soft and tender epigastric, LUQ and RUQ; Negative for guarding or rebound tenderness present Neuro oriented x3, CN's II-XII intact bilaterally and no sensory deficits noted Sensorium / Orientation: alert Motor Exam: strength 5/5 throughout Psych mental status grossly normal MDM MDM MDM Narrative Medical decision making narrative: Differential diagnosis includes bowel obstruction, gastritis, peptic ulcer disease, duodenal ulcer, pancreatitis, gastroesophageal reflux disease, cholelithiasis, and cholecystitis. CBC will be obtained to assess for leukocytosis and anemia. Comprehensive metabolic profile will be obtained to assess for hepatic function, renal function, and electrolyte abnormality. Lipase will be obtained to assess for pancreatitis. CT scan of the abdomen pelvis will be obtained to assess for bowel obstruction, perforation, pancreatitis, cholecystitis, and cholelithiasis. Lab Data Attestation: I reviewed the patient's lab results. Lab results narrative: CBC was reviewed and was within normal limits. Comprehensive metabolic profile was reviewed and was within normal limits. Lipase was reviewed and was normal at 38. Labs: Laboratory Results - last 24 hr 06/24/24 18:52 WBC 5.4 RBC 4.63 Hgb 13.9 Hct 43.5 MCV 94.0 MCH 30.0 MCHC 32.0 RDW Std Deviation 43.1 RDW Coeff of Laurent 12.5 Plt Count 346 MPV 10.2 Immature Gran % (Auto) 0.400 Neut % (Auto) 76.4 H Lymph % (Auto) 15.9 L Cottle % (Auto) 6.7 Eos % (Auto) 0.2 Baso % (Auto) 0.4 Absolute Neuts (auto) 4.1 Absolute Lymphs (auto) 0.86 Nucleated RBC % 0 Sodium 138 Potassium 4.2 Chloride 103 Carbon Dioxide 29.0 Anion Gap 6 BUN 16 Creatinine 0.93 Estim Creat Clear Calc 54.00 Est GFR (MDRD) Af Amer 77 Est GFR (MDRD) Non-Af 64 BUN/Creatinine Ratio 17.3 Glucose 108 H Calcium 9.3 Total Bilirubin 0.80 AST 15 ALT 19 Alkaline Phosphatase 92 Total Protein 7.3 Albumin 3.7 Globulin 3.6 Albumin/Globulin Ratio 1.0 Lipase 38 Radiography Diagnostic Testing: Clinical Impression(s) from Imaging Studies Abdomen/Pelvis CT 06/24/24 19:38 IMPRESSION: 1. Cholelithiasis with no sonographic evidence of cholecystitis. 2. Sigmoid diverticulosis with no evidence of diverticulitis. There are no acute abnormalities identified. Electronically Signed: Jeronimo March MD at 20:54 EDT , CT scan of the abdomen and pelvis was obtained. There is cholelithiasis but no evidence of cholecystitis. There is diverticulosis but no evidence of diverticulitis. There is no acute abnormality noted. This was interpreted by the radiologist and was also independently reviewed by myself. Treatment and Re-Evaluation :: Patient was given IV fluids and Zofran. Patient was given a repeat dose of Zofran. Patient was given a dose of Tylenol here. Patient was able to keep this down. Patient was advised of her findings. Patient was instructed to start with a liquid diet and advance as tolerated. Patient was given a prescription for Zofran to take at home. Patient was instructed to follow-up with her slide attendant in 5 to 7 days. Patient was instructed return if worse in any way. Patient understood and was agreeable with the plan. All questions were answered. Discharge Plan Triage Chief Complaint: Nausea/Vomiting ED Provider: Robert Watkins Dx/Rx/DC Orders Clinical Impression: Nausea and vomiting, Cholelithiasis Instructions: ED Vomiting (Adult) Prescriptions: New ondansetron 4 mg tablet,disintegrating 4 mg PO Q8H PRN PRN (Reason: Nausea) Qty: 10 0RF No Action tramadol 50 MG tablet 50 mg PO QHS Patient Comments: TAKE 1 TO 2 TABLETS every evening and every 6 (SIX) hours as needed for pain. gabapentin 300 MG capsule 600 mg PO QHS Patient Comments: pantoprazole 40 MG tablet 40 mg PO BID Qty: 60 0RF magnesium oxide 400 mg (241.3 mg magnesium) tablet 400 mg PO BID Primary Care Provider: Robert Boland Referrals: Robert Boland MD [Primary Care Provider] - 5-7 Days Silvestre Braxton MD [Non-Staff] - 3-5 Days Print Language: Bulgarian Disposition Disposition: Home, Self Care Discharge Date/Time: 06/24/24 21:45
--- NOTE | 2024-06-24 19:38 | CT_ITS ---
EXAM: CT ABDOMEN AND PELVIS WITH INTRAVENOUS CONTRAST CLINICAL INDICATION: Abdominal pain TECHNIQUE: Helically acquired images were obtained of the abdomen and pelvis with intravenous contrast. This CT exam was performed using one or more of the following dose reduction techniques: automated exposure control, adjustment of the mA and/or kV according to patient size, and/or use of iterative reconstruction technique. CONTRAST: IV 100mL [id number] COMPARISON: 08/18/2021 FINDINGS: LOWER THORAX: Unremarkable. Lung bases are clear. No cardiomegaly. No significant pericardial effusion. ABDOMEN: LIVER: Unremarkable. Homogeneous. No focal mass. GALLBLADDER AND BILE DUCTS: There is a sludge ball or gallstone present. There is no inflammation identified. No gallbladder distention or wall edema. No intra- or extrahepatic biliary ductal dilation. PANCREAS: Unremarkable. No focal cystic or solid mass. SPLEEN: Unremarkable. Normal size without focal cystic or solid mass. ADRENALS: Unremarkable. No nodules. KIDNEYS AND URETERS: Unremarkable. Normal renal size and position. No hydronephrosis. STOMACH AND BOWEL: There is sigmoid diverticulosis with no evidence of diverticulitis. There is hardware from a posterior fusion of L4 and L5. No stomach or bowel distention. PELVIS: APPENDIX: No evidence of acute appendicitis. BLADDER: Unremarkable. REPRODUCTIVE: Unremarkable as visualized. No mass. ABDOMEN and PELVIS: INTRAPERITONEAL SPACE: Unremarkable. No ascites or other fluid collection. No free air. BONES/JOINTS: Unremarkable. No suspicious lytic or blastic abnormality. SOFT TISSUES: Unremarkable. No discrete abdominal or pelvic wall hernia. VASCULATURE: Unremarkable. Abdominal aorta is non-dilated. LYMPH NODES: Unremarkable. No enlarged lymph nodes. CT/Abdomen/Pelvis W IV Cont ONLY IMPRESSION: 1. Cholelithiasis with no sonographic evidence of cholecystitis. 2. Sigmoid diverticulosis with no evidence of diverticulitis. There are no acute abnormalities identified. Electronically Signed: Jeronimo March MD at 20:54 EDT ,
[2024-06-24] MEDS: 0.9% Normal Saline (1000mL) 1,000 ML 999 ML IV (20:00)
[2024-06-24] MEDS: Ondansetron 4 MG/2 ML Vial IV ×2 (20:00→21:40)
[2024-06-24 20:01] LABS: Absolute Lymphocyte Count 0.86 X10^3/uL (0.83-4.51); Absolute Neutrophil Count 4.1 X10^3/uL (2.0-7.7); Basophil# 0.02 X10^3/uL; Basophil% 0.4 % (0-1); Eosinophil# 0.01 X10^3/uL; Eosinophils% 0.2 % (0-5); Hematocrit 43.5 % (37-47); Hemoglobin 13.9 g/dL (12.0-15.0); Lymphocyte # 0.86 X10^3/ul (0.83-4.51); Lymphocyte % 15.9 % (19-41); Mean Platelet Vol. 10.2 fl (6.2-12.0); Monocyte# 0.36 X10^3/uL; Monocyte% 6.7 % (0-10); NRBC Flagged by Analyzer 0 % (0-5); Neutrophil # 4.13 X10^3/uL (2.7-7.7); Neutrophil % 76.4 % (47-70); Platelet Count 346 K/mm3 (150-450); RBC Distribution Width CV 12.5 % (11.6-14.6); RBC Distribution Width SD 43.1 fl (35.1-43.9); Red Blood Count 4.63 M/mm3 (4.2-5.4); White Blood Count 5.4 K/mm3 (4.4-11.0)
[2024-06-24 20:08] VITALS: BP 170/81; PULSE 72; RESP 16; O2SAT 97
[2024-06-24 20:21] LABS: AST(SGOT) 15 U/L (15-37); Alanine Aminotransfer ALT/SGPT 19 U/L (13-56); Albumin, Serum 3.7 g/dL (3.2-5.0); Alkaline Phosphatase 92 U/L (45-117); Anion Gap 6 (5-15); BUN 16 mg/dL (7-18); BUN/Creat Ratio 17.3 RATIO (10-20); Calcium,Total 9.3 mg/dL (8.5-10.1); Chloride 103 mmol/L (98-107); Creatinine, Serum 0.93 mg/dL (0.55-1.02); EST Glomerular Filtration Rate 64 mL/min (>60); Est Glom Filt Rate - Afr Amer 77 mL/min (>60); Globulin 3.6 g/dL (2.2-4.2); Glucose 108 mg/dL (74-106); Lipase 38 U/L (13-75); Potassium 4.2 mmol/L (3.5-5.1); Protein, Total 7.3 g/dL (6.4-8.2); Sodium Level 138 mmol/L (136-145)
[2024-06-24] MEDS: Acetaminophen 500 MG Tablet 1000 MG PO (21:39)
[2024-06-24 21:43] VITALS: BP 150/98; PULSE 85; RESP 16; TEMP 36.6; O2SAT 93
== END 2024-06-24 21:45 | disposition home or self-care (01) ==
PROVIDERS: Emergency Provider Emergency Medicine; PCP Family Medicine; Visit Provider Emergency Medicine
DX: R11.2 Nausea with vomiting, unspecified (principal); K80.20 Calculus of gallbladder without cholecystitis without obstruction; Z87.891 Personal history of nicotine dependence
CPT/HCPCS: 74177; 80053; 83690; 85025; 96361; 96374; 96376; 99284; J7030; Q9967; A4216; J2405

== ENCOUNTER → 2024-07-20 | Outpatient (CLI) | payer MEDICARE, BC, SELFPAY ==
--- NOTE | 2024-07-20 08:35 | RAD_ITS ---
EXAMINATION: Air contrast UPPER GI SERIES INDICATION: Female, 69 years history of duodenal obstruction. FLUOROSCOPY TIME (if supplied): (1:16) minutes/seconds 81.6 mGy. 73 fluoroscopic images were obtained. TECHNIQUE: Radiographic and fluoroscopic images of the distal esophagus, stomach, and proximal small intestine were obtained following the oral ingestion of barium. COMPARISON: None. FINDINGS: There is no evidence for organomegaly, abnormal calcifications, or abnormal bowel gas pattern. The psoas margins and flank stripes are normal. Prior fusion of the lower lumbar spine. Small hiatal hernia with gastroesophageal reflux. There is deformity of the duodenal bulb with mild duodenal narrowing and stenosis most likely secondary to chronic ulcer disease. Contrast is seen within the proximal small bowel. RAD/Upper GI Dual Contrast IMPRESSION: 1. Small hiatal hernia with gastric esophageal reflux. 2. Deformity and narrowing of the duodenal bulb most likely secondary to prior ulcerative disease. Electronically Signed: Ignacio Vivas MD at 10:36 EDT ,
== END | disposition home or self-care (01) ==
LOC: RAD 08:08
PROVIDERS: PCP Family Medicine; Referring Provider Internal Medicine Gastroenterology; Visit Provider Internal Medicine Gastroenterology
DX: K31.5 Obstruction of duodenum (principal)
CPT/HCPCS: 74246

== ENCOUNTER → 2025-01-28 | Outpatient (CLI) | payer MEDICARE, BC, SELFPAY ==
--- NOTE | 2025-01-28 09:16 | BI_ITS ---
EXAM: SCRN MAMM (CAD)W/JERSON BILAT DATE: 01/28/2025 CLINICAL HISTORY: F, Age 69 y/o , YEARLY SCREENING BREAST CANCER RISK ASSESSMENT: Has not been calculated. TECHNIQUE: Bilateral screening digital breast tomosynthesis with 2D and 3D images. Computer aided detection. COMPARISON: Prior exam(s) dated 01/28/2024 and 11/08/2021. FINDINGS: TISSUE DENSITY: The breast tissue is composed of scattered area of fibroglandular density. Bilateral Breast Mammographic Findings: There are no suspicious masses, suspicious clustered microcalcifications, architectural distortion or secondary signs of malignancy identified in either breast. Benign vascular calcifications and round microcalcifications are seen in both breasts. Benign-appearing intramammary lymph nodes are seen in the superior outer aspect of the left breast. A stable 6 mm nodular density is seen in the lateral, middle 3rd aspect of the left breast. BI/SCRN MAMM (CAD)W/JERSON BILAT IMPRESSION: OVERALL FINAL ASSESSMENT: BIRADS 2 BENIGN FINDING RECOMMENDATION: Routine annual follow-up in 1 Year A letter with findings and recommendations will be mailed to the patient. Reading Location: [id number]
== END | disposition home or self-care (01) ==
LOC: OPBI 09:15
PROVIDERS: PCP Family Medicine; Referring Provider Family Medicine; Visit Provider Family Medicine
DX: Z12.31 Encounter for screening mammogram for malignant neoplasm of breast (principal)
CPT/HCPCS: 77063; 77067

== ENCOUNTER 2025-03-23 17:13 | Inpatient (IN) | payer MEDICARE, BC, SELFPAY ==
[2025-03-23] VITALS (8 sets, daily range): BP systolic 121–149; BP diastolic 53–83; PULSE 77–100; RESP 15–20; TEMP 36.5–38; O2SAT 90–98; BMI 28.4; BMI 27.1
[2025-03-23] MEDS: 0.9% Normal Saline (1000mL) 1,000 ML 1000 ML IV (17:42)
[2025-03-23] MEDS: Piperacil/Tazobactam 4.5 GM in 0.9% Normal Saline (100mL MB+) 100 ML IV (17:43)
--- NOTE | 2025-03-23 17:45 | EDS_ITS ---
HPI History of Present Illness Chief Complaint: Abd Pain Detail of Chief Complaint: Crampy predominantly lower quadrant abdominal pain Onset/Context/Timing Onset: Yesterday Context: Sudden Onset Timing: Continuous Quality: Crampy like pain Location: Right and left quadrant Current Severity: Mild Maximum Severity: Severe Worsened by: Movement Relieved by: Nothing Associated Symptoms Associated Symptoms: Nausea, no bowel movement in 2 days Narrative Narrative: Patient is a 69-year-old woman. 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 She was recently on prednisone for her back pain. She is scheduled for epidural injection. She has had a fusion in the past. She presents because of crampy lower abdominal pain. She denies fever, chills night sweats. She denies dysuria, frequency, urgency or hematuria. She denies symptoms with eating greasy or fried foods. She denies history of renal or ureterolithiasis. There is no family history of cholelithiasis. Patient does have history of GERD/peptic ulcer disease. She denies black or maroon-colored stool. She has not had a colonoscopy in many years. She denies history of diverticulosis or diverticulitis. Prior similar symptoms: No Recent Illness/Hospitalization: No PFSH PFS Medical History IBS (irritable bowel syndrome) Frequent headaches Home Medications ?Medication ?Instructions ?Recorded ?Last Taken ?Type gabapentin 300 mg capsule 600 mg PO QHS Back Pain 06/0206/28/17 History tramadol 50 mg tablet 50 mg PO QHS Back Pain 06/2906/28/17 History pantoprazole 40 mg tablet,delayed 40 mg PO BID #60 TAB LETS 06/30/17 Unknown Rx release magnesium oxide 400 mg (241.3 mg 400 mg PO BID 4 Unknown History magnesium) tablet ondansetron 4 mg disintegrating 4 mg PO Q8H PRN PRN Na usea #10 tabs 06/24/24 Unknown Rx tablet Allergy/AdvReac Type Severity Reaction Status Date / Time nitroglycerin AdvReac Severe Other Verified 03/23/25 17:14 amlodipine AdvReac other Verified 03/23/25 17:14 Family History Father Myocardial infarction Surgical History Hx of tonsillectomy H/O radiofrequency ablation (RFA) of nerve of lumbar spine H/O shoulder surgery History of spinal fusion Social History household members: spouse housing: house Smoking Status: Former smoker alcohol intake: never substance use type: does not use what type of physical activity do you participate in: none ROS ROS ED Constitutional Constitutional ED: Denies chills, fever(s), subjective or sweats Eyes Eyes: Denies blurry vision or change in vision ENT ENT ED: Denies rhinorrhea or sore throat Cardiovascular Cardiovascular: Denies chest pain or palpitations Respiratory/Chest Respiratory/Chest: Denies cough, dyspnea or dyspnea on exertion Gastrointestinal Gastrointestinal: Reports abdominal pain, constipation and nausea; Denies diarrhea, melena or vomiting Genitourinary Genitourinary ED: Denies dysuria, hematuria or urinary frequency Musculoskeletal Musculoskeletal: Reports back pain and other Details: The back pain is chronic. ; Denies arthralgias, myalgias or neck pain Integumentary Denies rash Neurologic Neurologic: Denies headache(s) or paresthesias Hematologic/Lymphatic Hematologic/Lymphatic: Reports systems reviewed and no addt'l complaints, except as documented EXAM Physical Exam Const Vital Signs: 03/23/25 17:14 03/23/25 19:14 Temperature 97.7 F L Temperature Source Temporal Pulse Rate 100 78 Respiratory Rate 20 H 16 Blood Pressure 121/73 H 149/60 H Blood Pressure Mean 89 89 Pulse Ox 95 98 Oxygen Delivery Method Room Air Positive well nourished and well developed Constitutional Narrative: Patient appears uncomfortable. Blood pressure slightly elevated. She is not febrile. General Appearance ED: well developed; Negative for pallor HEENT Reports dry mucous membranes HEENT Narrative: Head is atraumatic and normocephalic. Ears are normal. Posterior pharynx is normal. Mouth ED: Yes dry mucous membranes Mouth: dry mucous membranes Eyes PERRL and EOMs intact bilaterally General Eye ED: Negative for pale conjunctiva or scleral icterus Neck no lymphadenopathy, supple and no JVD Chest Wall inspection of chest normal and palpation of chest normal Resp normal respiratory effort and clear to auscultation bilaterally Cardio regular rate, regular rhythm, S1 normal heart sound, S2 normal heart sound and no murmurs GI no masses; Negative for normal to inspection, nondistended, normoactive bowel sounds, non-tender, non-distended or hepatosplenomegaly Inspection: abdominal distention Auscultation: hypoactive bowel sounds Palpation: tender LLQ and RLQ, guarding LLQ and RLQ and rebound tenderness present; Negative for splenomegaly Back/Spine no CVA tenderness Extremity normal to inspection General Extremety ED: Negative for edema or tenderness General Extremity: Negative for edema Neuro oriented x3 and CN's II-XII intact bilaterally Sensorium / Orientation: alert Psych mental status grossly normal Skin no rashes or lesions noted, no wounds and skin turgor normal General Skin Exam: Negative for jaundice or pallor MDM MDM MDM Narrative Medical decision making narrative: Patient with significant abdominal tenderness concern for surgical abdomen. She received 4.5 g of Zosyn. Appropriate blood work was ordered as well as CAT scan of the abdomen with contrast. She also received 1 L normal saline. Her pain was treated with morphine. Differential diagnosis includes diverticulitis, abscess due to diverticulitis, pneumoperitoneum due to perforated bowel or ulcer, atypical presentation for urologic pathology. This may be irritable bowel syndrome or pain of unknown etiology as well. Patient was treated with Zosyn immediately since she had peroneal findings. She had no SIRS criteria blood cultures were not obtained and what is of more importance was given the antibiotics immediately versus obtaining blood cultures. History & Record Review Additional record(s) reviewed:: Prior ED visit (May [address] Burr for nausea and vomiting. Patient was noted to have cholelithiasis with no sonographic evidence of cholecystitis. She also had sigmoid diverticulosis noted without evidence of diverticular lightest.) and Prior labs Lab Data Attestation: I reviewed the patient's lab results. Lab results narrative: White count is 16.1 with shift. There is no bandemia. H&H is unremarkable. Basic metabolic panel is marked for glucose of 154. Estimated GFR is 49. BUN is 23 with a BUN to creatinine ratio approximately 19-1. CO2 anion gap is normal. Lactate is elevated. This is probably due to her infection suspect that she has diverticulitis in light of her having a CAT scan that revealed significant diverticulosis last time she was seen in the emergency department by Dr. Robert Burr. Labs: Laboratory Results - last 24 hr 03/23/25 17:33 WBC 16.1 H RBC 4.93 Hgb 15.2 H Hct 46.1 MCV 93.5 MCH 30.8 MCHC 33.0 RDW Std Deviation 45.8 H RDW Coeff of Laurent 13.5 Plt Count 362 MPV 10.4 Immature Gran % (Auto) 0.500 Neut % (Auto) 87.5 H Lymph % (Auto) 7.3 L [place] % (Auto) 4.3 Eos % (Auto) 0.2 Baso % (Auto) 0.2 Absolute Neuts (auto) 14.1 H Absolute Lymphs (auto) 1.17 Nucleated RBC % 0 Sodium 137 Potassium 3.8 Chloride 98 Carbon Dioxide 24.1 Anion Gap 15 BUN 23 H Creatinine 1.20 Est GFR (MDRD) Non-Af 49 L BUN/Creatinine Ratio 18.8 Glucose 154 H Lactic Acid 2.2 H* Calcium 8.8 Radiography Diagnostic Testing: Clinical Impression(s) from Imaging Studies Abdomen/Pelvis CT 03/23/25 18:57 IMPRESSION: 1. Acute diverticulitis of the distal sigmoid colon, with possible intramural abscess measuring 2.4 cm, and punctate foci of extraluminal air up to 5-6 cm from the involved colon. Recommend Surgical consultation. 2. Prominent loops of small bowel without abrupt transition point, favored to represent ileus. 3. Cholelithiasis. [place] Alert: Acute complicated diverticulitis The critical information above was relayed directly by me by telephone to Sujit Sethi on 03/23/2025 at 7:44 pm with readback verification. Reading Location: [facility] Management Discussion w/another healthcare provider: Hospitalist (Dr. Lynn was paged for a cute sigmoid diverticulitis with microperforations and peritonitis. Full admit MedSurg) and [employer] (Spoke with Dr. Langford to. Dr. Chandra reviewed the CT. Admit to medicine with consult to him) Treatment and Re-Evaluation :: Patient still has significant tenderness. Additional morphine was ordered. Discharge Plan Triage Chief Complaint: Abd Pain ED Provider: Sujit Sethi Dx/Rx/DC Orders Clinical Impression: Abscess of sigmoid colon due to diverticulitis, Peritonitis, Acidosis, lactic Prescriptions: No Action tramadol 50 MG tablet 50 mg PO QHS Patient Comments: TAKE 1 TO 2 TABLETS every evening and every 6 (SIX) hours as needed for pain. gabapentin 300 MG capsule 600 mg PO QHS Patient Comments: pantoprazole 40 MG tablet 40 mg PO BID Qty: 60 0RF magnesium oxide 400 mg (241.3 mg magnesium) tablet 400 mg PO BID ondansetron 4 mg tablet,disintegrating 4 mg PO Q8H PRN PRN (Reason: Nausea) Qty: 10 0RF Primary Care Provider: Robert Boland Referrals: Robert Boland MD [Primary Care Provider] - Print Language: Estonian Disposition Disposition: Acute Care Hospital [facility]
[2025-03-23 18:10] LABS: Absolute Lymphocyte Count 1.17 X10^3/uL (0.83-4.51); Absolute Neutrophil Count 14.1 X10^3/uL (2.0-7.7); Basophil# 0.04 X10^3/uL; Basophil% 0.2 % (0-1); Eosinophil# 0.04 X10^3/uL; Eosinophils% 0.2 % (0-5); Hematocrit 46.1 % (37-47); Hemoglobin 15.2 g/dL (12.0-15.0); Lymphocyte # 1.17 X10^3/ul (0.83-4.51); Lymphocyte % 7.3 % (19-41); Mean Corpuscular Hgb 30.8 pg (27.0-32.0); Mean Corpuscular Volume 93.5 fL (81-99); Mean Platelet Vol. 10.4 fl (6.2-12.0); Monocyte% 4.3 % (0-10); NRBC Flagged by Analyzer 0 % (0-5); Neutrophil % 87.5 % (47-70); Platelet Count 362 K/mm3 (150-450); RBC Distribution Width CV 13.5 % (11.6-14.6); RBC Distribution Width SD 45.8 fl (35.1-43.9); Red Blood Count 4.93 M/mm3 (4.2-5.4); White Blood Count 16.1 K/mm3 (4.4-11.0)
[2025-03-23 18:20] LABS: Anion Gap 15 (5-15); BUN 23 mg/dL (4-19); BUN/Creat Ratio 18.8 RATIO (10-20); Calcium,Total 8.8 mg/dL (7.6-11.0); Carbon Dioxide 24.1 mmol/L (21.0-32.0); Chloride 98 mmol/L (98-108); EST Glomerular Filtration Rate 49 (>60); Glucose 154 mg/dL (70-99); Potassium 3.8 mmol/L (3.3-5.1); Sodium Level 137 mmol/L (133-145)
[2025-03-23 18:24] LABS: Lactic Acid 2.2 mmol/L (0.0-2.0)
--- NOTE | 2025-03-23 18:57 | CT_ITS ---
PROCEDURE: ABDOMEN/PELVIS W IV CONT ONLY 03/23/2025 REASON FOR EXAM: SURGICAL ABDOMEN TECHNIQUE: ABDOMEN/PELVIS W IV CONT ONLY Coronal and Sagittal reconstruction series were provided. CONTRAST: Isovue 370 VOLUME: 99 mL One or more dose reduction techniques were used (e.g., Automated exposure control, adjustment of the mA and/or kV according to patient size, use of iterative reconstruction technique. RADIATION DOSE SUMMARY: CTDlvol: 16.4 mGy DLP: 975 mGycm COMPARISON: CT abdomen and pelvis 06/24/2024 FINDINGS: Lung bases: Mild dependent atelectasis Liver: Mild intrahepatic biliary ductal dilatation, unchanged. Gallbladder: Cholelithiasis without significant wall thickening or pericholecystic fluid. Spleen: Normal size. Pancreas: Normal size without evidence of mass surrounding inflammation or ductal dilation. Adrenals: Unremarkable Kidneys: No stone or hydronephrosis. Bladder: Unremarkable Reproductive Organs: Unremarkable Bowel: There is extensive wall thickening and inflammatory stranding surrounding diverticulosis in the distal sigmoid colon. There is a rim enhancing hypodense collection containing air near the superior wall of the sigmoid colon measuring up to 2.4 cm in size (series 2, image 103), which does not definitely communicate with the lumen. There are punctate foci of extraluminal air along the posterior margin of the uterus, and a tiny focus more distant superior to the urinary bladder, approximately 5-6 cm from the sigmoid colon (sagittal image 100). There are loops of prominent small bowel in the left upper abdomen measuring less than 3 cm in diameter and without an abrupt transition point. Appendix is surgically absent. Duodenal diverticulum near the pancreatic head. Lymph nodes: No significant lymphadenopathy. Vasculature: Mild diffuse atherosclerotic calcifications are noted. Peritoneum / Retroperitoneum: Bones: Postoperative changes of the lumbar spine. Grade 1 anterolisthesis of L4 on L5 is unchanged. Soft tissues: Unremarkable. CT/Abdomen/Pelvis W IV Cont ONLY IMPRESSION: 1. Acute diverticulitis of the distal sigmoid colon, with possible intramural abscess measuring 2.4 cm, and punctate foci of extraluminal air up to 5-6 cm from the involved colon. Recommend Surgical consu ltation. 2. Prominent loops of small bowel without abrupt transition point, favored to represent ileus. 3. Cholelithiasis. [place] Alert: Acute complicated diverticulitis The critical information above was relayed directly by me by telephone to Sujit Sethi on 03/23/2025 at 7:44 pm with readback verification. Reading Location: [facility]
[2025-03-23] MEDS: Morphine 4 MG/ML Syringe IV (20:08)
--- NOTE | 2025-03-23 20:13 | PCM.HP.STD ---
HPI - General General Date of Admission: 03/23/25 Date of Service: 03/23/25 Chief Complaint: Abdominal pain. HPI Narrative The patient is a 69 y/o F w/ PMHx: Former tobacco use, Overweight, IBS, Chronic headaches, GERD, Chronic back pain receiving chronic epidural injections on chronic tramadol regimen as well as gabapentin, L sided CN Palsy who presents to the [facility] ED on 03/19/2025 with history of crampy primarily lower bilateral quadrant abdominal pain with associated nausea without emesis with last bowel movement the evening prior noted to be more loose but brown in appearance with no fevers or chills but significantly worsening abdominal pain prompting eventual ED evaluation be cautious. In the ED patient rates her abdominal pain as 10 out of 10 in severity. She noted the pain was intolerable especially on the drive with any road bumps or movement. Workup in the ED included T97.7 Temporal, heart rate 100, BP 121/73, respiratory rate 20, 95% on room air, CBC with WC 16.1, hemoglobin 15.2, platelets 362 with left shift, BMP with BUN/creatinine 23/1.20, GFR 49, glucose 154, initial lactic acid 2.2 with repeat per facility protocol less than 1, CT abdomen pelvis with IV contrast only with acute diverticulitis of the distal sigmoid colon with a possible intramural abscess measuring 2.4 cm and punctate foci of extraluminal air up to 5 to 6 cm from the involved colon, prominent loops of small bowel without abrupt transition point favoring ileus, cholelithiasis. In the ED patient ministered 2.5 L normal saline, morphine 4 mg IV x 1, Zosyn 4.5 g IV x 1. ED physician discussed case with general surgeon Dr. Bowers. [facility] Medical History Former tobacco use Sixth nerve palsy of left eye GERD (gastroesophageal reflux disease) Overweight CKD (chronic kidney disease), stage III IBS (irritable bowel syndrome) Frequent headaches Home Medications ?Medication ?Instructions ?Recorded ?Last Taken ?Type gabapentin 300 mg capsule 600 mg PO QHS Back Pain 06/29/17 06/28/17 History tramadol 50 mg tablet 50 mg PO QHS Back Pain 06/29/17 06/28/17 History magnesium oxide 400 mg (241.3 mg 400 mg PO BID supplement 06/24/24 Unknown History magnesium) tablet pantoprazole 40 mg tablet,delayed 40 mg PO QHS acid reflux 03/23/25 Unknown History release Allergy/AdvReac Type Severity Reaction Status Date / Time nitroglycerin AdvReac Severe Other Verified 03/23/25 17:14 amlodipine AdvReac other Verified 03/23/25 17:14 Family History Father Myocardial infarction Mother No problems noted. Surgical History Hx of tonsillectomy H/O radiofrequency ablation (RFA) of nerve of lumbar spine H/O shoulder surgery History of spinal fusion Social History household members: spouse housing: house Smoking Status: Former smoker alcohol intake: never substance use type: does not use what type of physical activity do you participate in: none ROS ROS Narrative Admission Review of Systems: CONSTITUTIONAL: No weight loss, fever, chills, + weakness or fatigue. HEENT: + Chronic headaches. Eyes: No visual loss, blurred vision, double vision or yellow sclerae. Ears, Nose, Throat: No hearing loss, sneezing, congestion, runny nose or sore throat. SKIN: No rash or itching, lesions, wounds. CARDIOVASCULAR: No chest pain, chest pressure or chest discomfort, palpitations, edema, orthopnea, syncopal events. RESPIRATORY: No shortness of breath, cough or sputum, wheezing, hemoptysis. GASTROINTESTINAL: + anorexia, nausea, abdominal pain, infrequent less stools, loose stools. No vomiting, melena, BRBPR. GENITOURINARY: No dysuria, frequency, urgency or retention. NEUROLOGICAL: + Chronic headaches. No dizziness, syncope, paralysis, ataxia, numbness or tingling in the extremities, focal weakness, change in bowel or bladder control, seizure. MUSCULOSKELETAL: No muscle, back pain, joint pain or stiffness. HEMATOLOGIC: No anemia, bleeding or bruising. LYMPHATICS: No enlarged nodes. No history of splenectomy. PSYCHIATRIC: No history of depression or anxiety. ENDOCRINOLOGIC: No reports of sweating, cold or heat intolerance. No polyuria or polydipsia. ALLERGIES: No history of asthma, hives, eczema or rhinitis. Vital Signs Vital Signs Vital Signs: 03/23/25 17:14 03/23/25 19:14 Temperature 97.7 F L Temperature Source Temporal Pulse Rate 100 78 Respiratory Rate 20 H 16 Blood Pressure 121/73 H 149/60 H Blood Pressure Mean 89 89 Pulse Ox 95 98 Oxygen Delivery Method Room Air Physical Exam Narrative Physical Examination: General: Awake, alert, oriented x 3 and cooperative, laying in the ED bed, very overt evidence of severe pain. Skin: Normal color, normal turgor, no icterus, no cyanosis except occasional stage ecchymoses, abrasion. HEENT: AT/NC, EOMI except left-sided chronic 6th nerve palsy with inability to laterally gaze, PERRLA, dry MM, no carotid bruits or JVD noted. Lungs: CTA bilaterally, moderate effort, mild decrease BL bases, no rales, ronchi or wheezing. Heart: Regular rate and rhythm; no gallop, rub audible. Abdomen: Soft, significantly tender palpation primarily in the bilateral lower quadrants with rebound, guarding noted, distant BS, difficult to discern distention and HSM given severity of pain with palpation. Extremities: No cyanosis, no clubbing, mild ankle not markedly pitting edema bilaterally. Neurological: Patient awake, alert, oriented as noted, cognitive function intact; pupils equally reactive to light and accommodation, cranial nerves grossly normal aside chronic 6th nerve left-sided palsy with chronic left lateral gaze debility, moving all 4 extremities, no focal deficits, strength severely globally creased secondary to acute pain. Psychiatric: Affect appears uncomfortable, ill-appearing, no acute evidence of depressive or anxiety feelings. Results Lab / Micro Data 03/23/25 17:33 03/23/25 17:33 Labs: Laboratory Results - last 24 hr 03/23/25 17:33: WBC 16.1 H, RBC 4.93, Hgb 15.2 H, Hct 46.1, MCV 93.5, MCH 30.8, MCHC 33.0, RDW Std Deviation 45.8 H, RDW Coeff of Laurent 13.5, Plt Count 362, MPV 10.4, Immature Gran % (Auto) 0.500, Neut % (Auto) 87.5 H, Lymph % (Auto) 7.3 L, [place] % (Auto) 4.3, Eos % (Auto) 0.2, Baso % (Auto) 0.2, Absolute Neuts (auto) 14.1 H, Absolute Lymphs (auto) 1.17, Nucleated RBC % 0, Sodium 137, Potassium 3.8, Chloride 98, Carbon Dioxide 24.1, Anion Gap 15, BUN 23 H, Creatinine 1.20, Est GFR (MDRD) Non-Af 49 L, BUN/Creatinine Ratio 18.8, Glucose 154 H, Lactic Acid 2.2 H*, Calcium 8.8 Imaging Radiology Impression Abdomen/Pelvis CT 03/23/25 18:57 IMPRESSION: 1. Acute diverticulitis of the distal sigmoid colon, with possible intramural abscess measuring 2.4 cm, and punctate foci of extraluminal air up to 5-6 cm from the involved colon. Recommend Surgical consultation. 2. Prominent loops of small bowel without abrupt transition point, favored to represent ileus. 3. Cholelithiasis. [place] Alert: Acute complicated diverticulitis The critical information above was relayed directly by me by telephone to Sujit Sethi on 03/23/2025 at 7:44 pm with readback verification. Reading Location: [id number] Assessment & Plan Assessment/Plan (1) Acute diverticulitis: PLAN: Plan The patient is a 69 y/o F w/ PMHx: Former tobacco use, Overweight, IBS, Chronic headaches, GERD, Chronic back pain receiving chronic epidural injections on chronic tramadol regimen as well as gabapentin, L sided CN Palsy who presents to the [facility] ED on 03/19/2025 with history of crampy primarily lower bilateral quadrant abdominal pain with associated nausea without emesis with last bowel movement the evening prior noted to be more loose but brown in appearance with no fevers or chills but significantly worsening abdominal pain prompting eventual ED evaluation be cautious. #1. Acute Diverticulitis of the distal sigmoid colon with possible intramural abscess with acute peritonitis: Will admit to [facility] given stable vital signs, will continue surgical consultation, maintain on aggressive hydration, monitor I&Os, maintain NPO status w/ bowel rest, treat with IV Zosyn regimen, IV PPI, anti-emetics, pain regimen PRN. Will await surgical evaluation and will defer consideration of any IR involvement to their discretion. #2. Chronic back pain: Undergoes routine epidural injections, will temporally hold chronic nightly tramadol as will have more aggressive oral and IV narcotic regimen, continue gabapentin nightly regimen. Encourage frequent positional changes, offloading. #3. Chronic Kidney Disease Stage III suspected, unclear subtype per GFR trending although has vacillated: Admission BUN/Cr 23/1.20, GFR 49, baseline renal function primarily 0.9-1.2, repeat BMP in AM. #4. Overweight: Weight loss and lifestyle changes encouraged. #5. GERD: Will maintain on IV PPI. #6. Former tobacco use: Encourage continued tobacco cessation. #7. DVT prophylaxis: SCDs, defer chemoprophylaxis pending surgery evaluation. Charges/Coding Visit Charges Inpatient E&M: 15880 Init Hosp L3
--- NOTE | 2025-03-23 20:54 | EX.PCM.CON.S ---
Assessment & Plan Assessment/Plan (1) Abscess of sigmoid colon due to diverticulitis: PLAN: The patient has severe diverticulitis with abscess and a small amount of microperforation. I discussed this with her and I discussed her CT findings with her. I recommend placing the patient on antibiotics and keeping her n.p.o. with only sips and chips until the pain resolves. I will also repeat CT in 48 to 72 hours. I discussed that if she develops fever or other signs concerning for worsening I will repeat a CT earlier or have to take her for surgery. Patient understands. Michael Bowers MD Pager: [facility] [address] [place] [address], [address] [place] [address] Office: HPI Consult Data Date of Consult: 03/23/25 HPI Narrative HPI Narrative: IAN PINEDO, is a 69 F who presents with lower abdominal pain that started yesterday. She reports no nausea or vomiting. The pain is low in the abdomen. She has never had diverticulitis in the past. Her last colonoscopy was unable to be performed as she had a poor prep [facility] Medical History IBS (irritable bowel syndrome) Frequent headaches Home Medications ?Medication ?Instructions ?Recorded ?Last Taken ?Type gabapentin 300 mg capsule 600 mg PO QHS Back Pain 06/29/17 06/28/17 History tramadol 50 mg tablet 50 mg PO QHS Back Pain 06/29/17 06/28/17 History pantoprazole 40 mg tablet,delayed 40 mg PO BID #60 TABLETS 06/30/17 Unknown Rx release magnesium oxide 400 mg (241.3 mg 400 mg PO BID 06/24/24 Unknown History magnesium) tablet ondansetron 4 mg disintegrating 4 mg PO Q8H PRN PRN Nausea #10 tabs 06/24/24 Unknown Rx tablet Allergy/AdvReac Type Severity Reaction Status Date / Time nitroglycerin AdvReac Severe Other Verified 03/23/25 17:14 amlodipine AdvReac other Verified 03/23/25 17:14 Family History Father Myocardial infarction Surgical History Hx of tonsillectomy H/O radiofrequency ablation (RFA) of nerve of lumbar spine H/O shoulder surgery History of spinal fusion Social History household members: spouse housing: house Smoking Status: Former smoker alcohol intake: never substance use type: does not use what type of physical activity do you participate in: none ROS Constitutional Constitutional: Reports anorexia; Denies chills, fatigue or fever(s) Eyes Eyes: Denies blurry vision ENT HEENT: Denies abnormal hearing Cardiovascular Cardiovascular: Denies chest pain Respiratory/Chest Respiratory/Chest: Denies cough or dyspnea Gastrointestinal Gastrointestinal: Reports abdominal pain; Denies constipation, diarrhea, nausea, rectal bleeding or vomiting Genitourinary Genitourinary: Denies change in urinary stream Musculoskeletal Musculoskeletal: Denies abnormal gait Integumentary Integumentary: Denies new lesions Neurologic Neurologic: Denies abnormal gait Psychiatric Psychiatric: Denies anxiety Physical Exam Const alert and oriented x3 HEENT normocephalic Neck full ROM Chest inspection of chest normal Resp normal respiratory effort Cardio Rate: regular rate Rhythm: regular rhythm GI soft to palpation Palpation: tender LLQ, RLQ and suprapubic Extremity normal to inspection Lab / Micro Data 03/23/25 17:33 03/23/25 17:33 Labs: Laboratory Results - last 24 hr 03/23/25 17:33: WBC 16.1 H, RBC 4.93, Hgb 15.2 H, Hct 46.1, MCV 93.5, MCH 30.8, MCHC 33.0, RDW Std Deviation 45.8 H, RDW Coeff of Laurent 13.5, Plt Count 362, MPV 10.4, Immature Gran % (Auto) 0.500, Neut % (Auto) 87.5 H, Lymph % (Auto) 7.3 L, [place] % (Auto) 4.3, Eos % (Auto) 0.2, Baso % (Auto) 0.2, Absolute Neuts (auto) 14.1 H, Absolute Lymphs (auto) 1.17, Nucleated RBC % 0, Sodium 137, Potassium 3.8, Chloride 98, Carbon Dioxide 24.1, Anion Gap 15, BUN 23 H, Creatinine 1.20, Est GFR (MDRD) Non-Af 49 L, BUN/Creatinine Ratio 18.8, Glucose 154 H, Lactic Acid 2.2 H*, Calcium 8.8 Imaging Radiology Impression Abdomen/Pelvis CT 03/23/25 18:57 IMPRESSION: 1. Acute diverticulitis of the distal sigmoid colon, with possible intramural abscess measuring 2.4 cm, and punctate foci of extraluminal air up to 5-6 cm from the involved colon. Recommend Surgical consultation. 2. Prominent loops of small bowel without abrupt transition point, favored to represent ileus. 3. Cholelithiasis. [place] Alert: Acute complicated diverticulitis The critical information above was relayed directly by me by telephone to Sujit Sethi on 03/23/2025 at 7:44 pm with readback verification. Reading Location: [id number]
[2025-03-23 21:41] LABS: Reflex Lactate? Y
[2025-03-23] MEDS: Acetaminophen 325 MG Tablet 650 MG PO (22:17)
[2025-03-23] MEDS: 0.9% Normal Saline (1000mL) 1,000 ML 100 ML IV (22:21)
[2025-03-23] MEDS: Pantoprazole Sodium 40 MG in 0.9% Normal Saline (100mL MB+) 100 ML 330 MG IV (22:24)
[2025-03-23] MEDS: Gabapentin 600 MG Tablet PO (22:32)
[2025-03-23] MEDS: Morphine 2 MG/ML Syringe IV (23:26)
[2025-03-23] MEDS: Piperacil/Tazobactam 3.375 GM in 0.9% Normal Saline (50mL MB+) 50 ML IV (23:30)
[2025-03-23] MEDS: 0.9% Normal Saline (250mL Bag) 250 ML 15 ML IV (23:32)
[2025-03-23 23:41] LABS: Lactic Acid < 1.0 mmol/L (0.0-2.0)
[2025-03-24] VITALS (7 sets, daily range): BP systolic 126–148; BP diastolic 55–77; PULSE 67–91; RESP 15–16; TEMP 36.6–37.7; O2SAT 92–95; BMI 28.4
[2025-03-24] MEDS: Piperacil/Tazobactam 3.375 GM in 0.9% Normal Saline (50mL MB+) 50 ML IV ×3 (05:35→22:58)
[2025-03-24 05:39] LABS: Absolute Lymphocyte Count 1.05 X10^3/uL (0.83-4.51); Absolute Neutrophil Count 10.8 X10^3/uL (2.0-7.7); Basophil# 0.03 X10^3/uL; Basophil% 0.2 % (0-1); Eosinophil# 0.01 X10^3/uL; Eosinophils% 0.1 % (0-5); Hematocrit 39.1 % (37-47); Hemoglobin 12.6 g/dL (12.0-15.0); Lymphocyte # 1.05 X10^3/ul (0.83-4.51); Lymphocyte % 8.4 % (19-41); Mean Corp Hgb Conc 32.2 g/dL (32-36); Mean Corpuscular Hgb 30.3 pg (27.0-32.0); Mean Platelet Vol. 10.1 fl (6.2-12.0); Monocyte# 0.51 X10^3/uL; Monocyte% 4.1 % (0-10); NRBC Flagged by Analyzer 0 % (0-5); Neutrophil # 10.79 X10^3/uL (2.7-7.7); Neutrophil % 86.6 % (47-70); Platelet Count 284 K/mm3 (150-450); RBC Distribution Width CV 13.8 % (11.6-14.6); RBC Distribution Width SD 47.1 fl (35.1-43.9); Red Blood Count 4.16 M/mm3 (4.2-5.4); White Blood Count 12.5 K/mm3 (4.4-11.0)
[2025-03-24 05:50] LABS: International Normalized Ratio 1.3; Prothrombin Time (Protime)PT. 16.5 SECONDS (11.7-14.9)
[2025-03-24 05:51] LABS: Partial Thromboplast Time 32.7 Seconds (24.1-36.2)
[2025-03-24 06:32] LABS: ALB/GLOB Ratio 1.3 RATIO (0.9-2.4); AST(SGOT) 65 U/L (<=31); Alanine Aminotransfer ALT/SGPT 63 U/L (<=34); Albumin, Serum 3.1 g/dL (3.4-4.8); Alkaline Phosphatase 93 U/L (35-104); Anion Gap 11 (5-15); BUN 18 mg/dL (4-19); BUN/Creat Ratio 16.2 RATIO (10-20); Calcium,Total 7.8 mg/dL (7.6-11.0); Carbon Dioxide 23.6 mmol/L (21.0-32.0); Chloride 105 mmol/L (98-108); Creatinine, Serum 1.12 mg/dL (0.70-1.20); EST Glomerular Filtration Rate 53 (>60); Estimated Creatinine Clearance 45.32 ml/min (50-250); Globulin 2.5 g/dL (2.2-4.2); Glucose 109 mg/dL (70-99); Potassium 4.2 mmol/L (3.3-5.1); Protein, Total 5.7 g/dL (5.9-8.4); Sodium Level 139 mmol/L (133-145); Total Bilirubin 2.61 mg/dL (0.00-1.30)
[2025-03-24] MEDS: Morphine 2 MG/ML Syringe IV ×2 (06:38→14:03)
--- NOTE | 2025-03-24 07:25 | PCM.PN.HOSP ---
Reason for Visit Reason for Visit: Diagnoses Diverticulitis of large intestine with perforation and abscess without bleeding (03/23/25) Diverticulitis of intestine, part unspecified, without perforation or abscess without bleeding (03/23/25) Subjective Subjective Still with abdominal pain. Objective Data Objective Data Vital Signs: Vital Signs Temp Pulse Resp BP Pulse Ox O2 Del Method 37.1 C 84 15 126/55 H 94 Room Air 03/24/25 03:58 03/24/25 03:58 03/24/25 03:58 03/24/25 03:58 03/24/25 03:58 03/24/25 06:25 Oxygen Delivery Method Room Air Weight: 72.8 kg Body Mass Index (BMI) 28.4 Intake & Output: Intake and Output for Last 24 Hours 03/22/25 03/23/25 03/24/25 23:59 23:59 23:59 Intake Total 1200 / 1250 100 / 100 Balance 1200 / 1250 100 / 100 Lab / Micro Data 03/24/25 05:29 03/24/25 05:29 Labs: Laboratory Results - last 24 hr 03/23/25 17:33: WBC 16.1 H, RBC 4.93, Hgb 15.2 H, Hct 46.1, MCV 93.5, MCH 30.8, MCHC 33.0, RDW Std Deviation 45.8 H, RDW Coeff of Laurent 13.5, Plt Count 362, MPV 10.4, Immature Gran % (Auto) 0.500, Neut % (Auto) 87.5 H, Lymph % (Auto) 7.3 L, [place] % (Auto) 4.3, Eos % (Auto) 0.2, Baso % (Auto) 0.2, Absolute Neuts (auto) 14.1 H, Absolute Lymphs (auto) 1.17, Nucleated RBC % 0, Sodium 137, Potassium 3.8, Chloride 98, Carbon Dioxide 24.1, Anion Gap 15, BUN 23 H, Creatinine 1.20, Est GFR (MDRD) Non-Af 49 L, BUN/Creatinine Ratio 18.8, Glucose 154 H, Lactic Acid 2.2 H*, Calcium 8.8 03/23/25 22:07: Lactic Acid < 1.0 03/24/25 05:29: WBC 12.5 H, RBC 4.16 L, Hgb 12.6, Hct 39.1, MCV 94.0, MCH 30.3, MCHC 32.2, RDW Std Deviation 47.1 H, RDW Coeff of Laurent 13.8, Plt Count 284, MPV 10.1, Immature Gran % (Auto) 0.600, Neut % (Auto) 86.6 H, Lymph % (Auto) 8.4 L, [place] % (Auto) 4.1, Eos % (Auto) 0.1, Baso % (Auto) 0.2, Absolute Neuts (auto) 10.8 H, Absolute Lymphs (auto) 1.05, Nucleated RBC % 0, PT 16.5 H, INR 1.3, APTT 32.7, Sodium 139, Potassium 4.2, Chloride 105, Carbon Dioxide 23.6, Anion Gap 11, BUN 18, Creatinine 1.12, Estim Creat Clear Calc 45.32 L, Est GFR (MDRD) Non-Af 53 L, BUN/Creatinine Ratio 16.2, Glucose 109 H, Calcium 7.8, Total Bilirubin 2.61 H, AST 65 H, ALT 63 H, Alkaline Phosphatase 93, Total Protein 5.7 L, Albumin 3.1 L, Globulin 2.5, Albumin/Globulin Ratio 1.3 Radiography Diagnostic Testing: Radiology Impression Abdomen/Pelvis CT 03/23/25 18:57 IMPRESSION: 1. Acute diverticulitis of the distal sigmoid colon, with possible intramural abscess measuring 2.4 cm, and punctate foci of extraluminal air up to 5-6 cm from the involved colon. Recommend Surgical consultation. 2. Prominent loops of small bowel without abrupt transition point, favored to represent ileus. 3. Cholelithiasis. [place] Alert: Acute complicated diverticulitis The critical information above was relayed directly by me by telephone to Sujit Sethi on 03/23/2025 at 7:44 pm with readback verification. Reading Location: [id number] Physical Exam Const alert and no apparent distress HEENT head/scalp atraumatic and moist oral mucous membranes Resp normal respiratory effort, no retractions, no use of accessory muscles and clear to auscultation bilaterally Cardio regular rate, regular rhythm, S1 normal heart sound and S2 normal heart sound GI normal to inspection, nondistended, normoactive bowel sounds, soft to palpation, non-tender and non-distended Neuro Sensorium / Orientation: awake and alert Assessment & Plan Assessment/Plan (1) Abscess of sigmoid colon due to diverticulitis: PLAN: On abx with pip/tazo. General surgery following. No imminent plans for surgery. Repeat CT in 1-2 days then determine course of action. NPO pain control. (2) Ileus: PLAN: supportive mgmt. Likely 2/2 above. (3) Acidosis, lactic: PLAN: Resolved with IVF. PLAN: Plan VTE prophylaxis: SCDs. Charges/Coding Visit Charges Inpatient E&M: 78853 Subs Hosp L2
[2025-03-24] MEDS: Acetaminophen 325 MG Tablet 650 MG PO ×2 (07:51→20:28)
[2025-03-24] MEDS: Ondansetron 4 MG/2 ML Vial IV (07:51)
[2025-03-24] MEDS: 0.9% Normal Saline (1000mL) 1,000 ML 100 ML IV (09:08)
[2025-03-24] MEDS: Pantoprazole Sodium 40 MG in 0.9% Normal Saline (100mL MB+) 100 ML 330 MG IV ×2 (09:08→22:22)
--- NOTE | 2025-03-24 10:39 | CASEMGMT ---
RN?CM?ELECTRONIC PUBLICATIONS SPECIALIST?CM?to room to meet with patient for initial transition planning/care coordination?assessment.?RN?CM?introduced self and role at [facility].? Pt voices understanding and consents to?assessment?at this time.? Pt resting in bed in no distress at this time.? Pt is A/O at this time and answers all questions appropriately.?? Care providers, pharmacy, and demographics verified/updated at this time. Strata: 2 PCP: Dr Robert Boland Specialists: Dr Malcolm hathaway Preferred Pharmacy: [facility] retail @ [place]. Insurance: MCR, Jamie Prescription Benefit:?yes LNOK: 2 sons, Marco Antonio and Saeid. DIL, Loly Living Arrangements: Lives alone in one-story home w/basement and 3 steps to enter. Does okay with stairs when @ her baseline. Independent. Washer and dryer are in the basement. Family can assist w/this @ [place], if needed. Transportation:?Pt states drives self and states no transportation concerns at this time.? DME: ? Denies using any DME and denies needs. HHC/SNF: No hx of either. Has done OP therapy several times in the past. Pt wishes to return home and states has no concerns with going home at time of discharge.?CM?to follow for any discharge planning/needs.? Pt voices no further concerns/needs at this time.? Advised pt to ask for?CM?if any further questions/concerns/needs arise.? Voices understanding. PLAN:??Home [place] BSN?RN?CM
[2025-03-24] MEDS: Gabapentin 600 MG Tablet PO (20:28)
[2025-03-24] MEDS: oxyCODONE 5 MG Tablet PO (20:29)
[2025-03-25] MEDS: Acetaminophen 325 MG Tablet 650 MG PO ×2 (05:19→23:02)
[2025-03-25] MEDS: Ondansetron 4 MG/2 ML Vial IV (05:19)
[2025-03-25 05:20] VITALS: BP 134/59; PULSE 83; RESP 16; TEMP 36.7; O2SAT 92
[2025-03-25] MEDS: Piperacil/Tazobactam 3.375 GM in 0.9% Normal Saline (50mL MB+) 50 ML IV ×3 (05:53→22:56)
[2025-03-25] MEDS: oxyCODONE 5 MG Tablet PO ×2 (05:55→23:02)
[2025-03-25] MEDS: proCHLORPERazine 10 MG/2 ML Vial 5 MG IV (05:58)
[2025-03-25 06:00] VITALS: BMI 28.5
--- NOTE | 2025-03-25 07:23 | PCM.PN.HOSP ---
Reason for Visit Reason for Visit: Diagnoses Acidosis, unspecified (03/23/25) Ileus, unspecified (03/23/25) Diverticulitis of large intestine with perforation and abscess without bleeding (03/23/25) Diverticulitis of intestine, part unspecified, without perforation or abscess without bleeding (03/23/25) Subjective Subjective Had intense abdominal cramping earlier this AM, passed gas and is feeling better overall. Objective Data Objective Data Vital Signs: Vital Signs Temp Pulse Resp BP Pulse Ox O2 Del Method 36.7 C 83 16 134/59 H 92 Room Air 03/25/25 05:20 03/25/25 05:20 03/25/25 05:20 03/25/25 05:20 03/25/25 05:20 03/25/25 05:20 Oxygen Delivery Method Room Air Weight: 73.2 kg Body Mass Index (BMI) 28.5 Intake & Output: Intake and Output for Last 24 Hours 03/23/25 03/24/25 03/25/25 23:59 23:59 23:59 Intake Total 1200 / 1250 2885.63 / 2885.63 50 / 50 Balance 1200 / 1250 2885.63 / 2885.63 50 / 50 Lab / Micro Data 03/25/25 06:48 03/25/25 06:48 Physical Exam Const alert and no apparent distress HEENT head/scalp atraumatic and moist oral mucous membranes Neck no lymphadenopathy Resp normal respiratory effort, no retractions, no use of accessory muscles and clear to auscultation bilaterally Cardio regular rate, regular rhythm, S1 normal heart sound and S2 normal heart sound GI normal to inspection, nondistended, normoactive bowel sounds, soft to palpation, non-tender and non-distended Extremity normal to inspection and full ROM Neuro Sensorium / Orientation: awake and alert Assessment & Plan Assessment/Plan (1) Abscess of sigmoid colon due to diverticulitis: PLAN: Symptomatically improved. Continue with pip/tazo. General surgery following. No imminent plans for surgery. Repeat CT in 1-2 days then determine course of action. NPO pain control. (2) Ileus: PLAN: supportive mgmt. Likely 2/2 above. (3) Acidosis, lactic: PLAN: Resolved with IVF. PLAN: Plan VTE prophylaxis: SCDs. Charges/Coding Visit Charges Inpatient E&M: 09253 Subs Hosp L2
[2025-03-25 07:54] LABS: Absolute Neutrophil Count 9.7 X10^3/uL (2.0-7.7); Basophil# 0.02 X10^3/uL; Basophil% 0.2 % (0-1); Eosinophil# 0.15 X10^3/uL; Eosinophils% 1.3 % (0-5); Hemoglobin 11.9 g/dL (12.0-15.0); Lymphocyte % 7.1 % (19-41); Mean Corp Hgb Conc 33.1 g/dL (32-36); Mean Corpuscular Hgb 31.7 pg (27.0-32.0); Mean Platelet Vol. 10.6 fl (6.2-12.0); Monocyte# 0.56 X10^3/uL; Monocyte% 4.9 % (0-10); NRBC Flagged by Analyzer 0 % (0-5); Neutrophil # 9.74 X10^3/uL (2.7-7.7); Neutrophil % 85.9 % (47-70); Platelet Count 264 K/mm3 (150-450); RBC Distribution Width CV 13.7 % (11.6-14.6); RBC Distribution Width SD 48.8 fl (35.1-43.9); Red Blood Count 3.75 M/mm3 (4.2-5.4); White Blood Count 11.3 K/mm3 (4.4-11.0)
--- NOTE | 2025-03-25 08:20 | PCM.PN.SRG ---
Subjective Subjective Patient evaluated resting comfortably in bed. She notes symptoms have improved over night. She notes in the middle of the night she had cramping abdominal pain, little nausea. She went to use the restroom and passed flatus which resolved all of her abdominal cramping. This morning she notes abdominal discomfort with palpation otherwise no pain at rest. She notes the nausea has improved. She notes overall she feels as though she is improving. Objective Data Objective Data Vital Signs: Vital Signs Temp Pulse Resp BP Pulse Ox O2 Del Method 98.1 F 83 16 134/59 H 92 Room Air 03/25/25 05:20 03/25/25 05:20 03/25/25 05:20 03/25/25 05:20 03/25/25 05:20 03/25/25 07:32 Oxygen Delivery Method Room Air Weight: 161 lb 6.054 oz Body Mass Index (BMI) 28.5 Intake & Output: Intake and Output for Last 24 Hours 03/23/25 03/24/25 03/25/25 23:59 23:59 23:59 Intake Total 1200 / 1250 2885.63 / 2885.63 50 / 50 Balance 1200 / 1250 2885.63 / 2885.63 50 / 50 Lab / Micro Data 03/25/25 06:48 03/25/25 06:48 Labs: Laboratory Results - last 24 hr 03/25/25 06:48: WBC 11.3 H, RBC 3.75 L, Hgb 11.9 L, Hct 36.0 L, MCV 96.0, MCH 31.7, MCHC 33.1, RDW Std Deviation 48.8 H, RDW Coeff of Laurent 13.7, Plt Count 264, MPV 10.6, Immature Gran % (Auto) 0.600, Neut % (Auto) 85.9 H, Lymph % (Auto) 7.1 L, [place] % (Auto) 4.9, Eos % (Auto) 1.3, Baso % (Auto) 0.2, Absolute Neuts (auto) 9.7 H, Absolute Lymphs (auto) 0.80 L, Nucleated RBC % 0 Physical Exam GI GI Narrative: Abdomen- soft, tenderness with palpation in the epigastric, umbilical and lower pelvic region. Hypoactive bowels sounds noted. Assessment & Plan Assessment/Plan (1) Acute diverticulitis: (2) Abscess of sigmoid colon due to diverticulitis: PLAN: Plan I am following this patient in conjunction with Dr. Salguero in Dr. Bowers's absence. He has independently evaluated this patient. Labs reviewed. WBC decreased Continue NPO until abdominal pain is resolved Plan to repeat CT scan with IV and oral contrast tomorrow to assess progress of fluid collections No surgical intervention planned at this time We will continue to monitor this patient Patient is aware that if her symptoms become worse, surgery will be discussed Charges/Coding Visit Charges Inpatient E&M: 22173 Subs Hosp L2
[2025-03-25 08:33] LABS: Anion Gap 14 (5-15); BUN 16 mg/dL (4-19); BUN/Creat Ratio 18.3 RATIO (10-20); Chloride 105 mmol/L (98-108); Creatinine, Serum 0.88 mg/dL (0.70-1.20); EST Glomerular Filtration Rate 71 (>60); Estimated Creatinine Clearance 57.84 ml/min (50-250); Glucose 80 mg/dL (70-99); Potassium 3.6 mmol/L (3.3-5.1); Sodium Level 139 mmol/L (133-145)
[2025-03-25] MEDS: Pantoprazole Sodium 40 MG in 0.9% Normal Saline (100mL MB+) 100 ML 330 MG IV ×2 (08:37→20:46)
[2025-03-25] MEDS: 0.9% Normal Saline (250mL Bag) 250 ML 15 ML IV (08:37)
[2025-03-25 10:00] VITALS: BP 127/58; PULSE 74; RESP 16; TEMP 36.6; O2SAT 94
[2025-03-25 15:17] VITALS: BP 137/74; PULSE 75; RESP 16; TEMP 36.7; O2SAT 92
[2025-03-25] MEDS: 0.9% Saline Lock 10 ML Syringe IV (17:18)
[2025-03-25] MEDS: Morphine 2 MG/ML Syringe IV (17:18)
[2025-03-25 20:46] VITALS: BP 148/81; PULSE 78; RESP 16; TEMP 37; O2SAT 93
[2025-03-25] MEDS: Gabapentin 600 MG Tablet PO (20:46)
[2025-03-25 22:57] VITALS: BP 148/68; PULSE 79; RESP 16; TEMP 37.1; O2SAT 95
[2025-03-26] MEDS: Piperacil/Tazobactam 3.375 GM in 0.9% Normal Saline (50mL MB+) 50 ML IV ×3 (05:05→22:14)
[2025-03-26 05:47] VITALS: BMI 28.5
[2025-03-26 06:49] LABS: Absolute Lymphocyte Count 1.06 X10^3/uL (0.83-4.51); Absolute Neutrophil Count 6.2 X10^3/uL (2.0-7.7); Basophil# 0.01 X10^3/uL; Basophil% 0.1 % (0-1); Eosinophil# 0.17 X10^3/uL; Eosinophils% 2.1 % (0-5); Hematocrit 38.3 % (37-47); Hemoglobin 12.2 g/dL (12.0-15.0); Lymphocyte # 1.06 X10^3/ul (0.83-4.51); Lymphocyte % 13.2 % (19-41); Mean Corp Hgb Conc 31.9 g/dL (32-36); Mean Corpuscular Hgb 30.6 pg (27.0-32.0); Mean Platelet Vol. 10.5 fl (6.2-12.0); Monocyte# 0.55 X10^3/uL; Monocyte% 6.8 % (0-10); NRBC Flagged by Analyzer 0 % (0-5); Neutrophil # 6.21 X10^3/uL (2.7-7.7); Neutrophil % 77.3 % (47-70); Platelet Count 304 K/mm3 (150-450); RBC Distribution Width CV 13.2 % (11.6-14.6); RBC Distribution Width SD 46.5 fl (35.1-43.9); Red Blood Count 3.99 M/mm3 (4.2-5.4)
--- NOTE | 2025-03-26 07:00 | CT_ITS ---
PROCEDURE: ABDOMEN/PELVIS WITH CONTRAST 03/26/2025 REASON FOR EXAM: ACUTE DIVERTICULITIS WITH ABSCESS TECHNIQUE: ABDOMEN/PELVIS WITH CONTRAST Coronal and Sagittal reconstruction series were provided. CONTRAST: Isovue-300 VOLUME: 100 mL One or more dose reduction techniques were used (e.g., Automated exposure control, adjustment of the mA and/or kV according to patient size, use of iterative reconstruction technique. RADIATION DOSE SUMMARY: CTDlvol: 15 mGy DLP: 1133.58 mGycm COMPARISON: Prior study dated March 23, 2025. FINDINGS: Lung bases: Mild dependent atelectasis. Coronary artery calcification. Liver: Minimal degree of central intrahepatic biliary ductal dilatation. Gallbladder: Gallstones are seen within the gallbladder lumen. Spleen: Normal size. Pancreas: Normal size without evidence of mass surrounding inflammation or ductal dilation. Adrenals: Unremarkable Kidneys: Normal renal sizes. No hydronephrosis. Bladder: Unremarkable Reproductive Organs: Normal uterine size and contour. Ovaries are unremarkable. Bowel: Sigmoid colon diverticula with wall thickening and adjacent inflammatory changes. There has been improvement as compared to prior study. The previously seen fluid collection along the mesenteric side of the sigmoid colon has improved. Stable duodenal diverticulum. Appendix: Patient is status post appendectomy. Lymph nodes: Unremarkable. Vasculature: Mild diffuse atherosclerotic calcifications are noted. Peritoneum / Retroperitoneum: Unremarkable Bones: Degenerative changes of the spine. CT/Abdomen/Pelvis WITH Contrast IMPRESSION: Persistent signs of sigmoid diverticulitis. The inflammatory change has improv ed as well as the small fluid collection. Minimal remaining tiny air bubbles surrounding the sigmoid colon. Reading Location: [facility]
[2025-03-26 07:16] LABS: Anion Gap 15 (5-15); BUN 17 mg/dL (4-19); BUN/Creat Ratio 19.2 RATIO (10-20); Calcium,Total 8.7 mg/dL (7.6-11.0); Carbon Dioxide 21.4 mmol/L (21.0-32.0); Chloride 102 mmol/L (98-108); Creatinine, Serum 0.87 mg/dL (0.70-1.20); EST Glomerular Filtration Rate 72 (>60); Glucose 69 mg/dL (70-99); Potassium 3.6 mmol/L (3.3-5.1); Sodium Level 138 mmol/L (133-145)
[2025-03-26 07:41] VITALS: PULSE 100
[2025-03-26 07:44] VITALS: BP 155/80; PULSE 106; RESP 20; TEMP 37; O2SAT 95
--- NOTE | 2025-03-26 07:55 | PN.HOSP_ITS ---
Reason for Visit Reason for Visit: Diagnoses Acidosis, unspecified (03/23/25) Ileus, unspecified (03/23/25) Diverticulitis of large intestine with perforation and abscess without bleeding (03/23/25) Diverticulitis of intestine, part unspecified, without perforation or abscess without bleeding (03/23/25) Subjective Subjective Feeling much better. Objective Data Objective Data Vital Signs: Vital Signs Temp Pulse Resp BP Pulse Ox O2 Del Method 37.0 C 106 H 20 H 155/80 H 95 Room Air 03/26/25 07:44 03/26/25 07:44 03/26/25 07:44 03/26/25 07:44 03/26/25 07:44 03/26/25 07:44 Oxygen Delivery Method Room Air Weight: 73.2 kg Body Mass Index (BMI) 28.5 Intake & Output: Intake and Output for Last 24 Hours 03/24/25 03/25/25 03/26/25 23:59 23:59 23:59 Intake Total 2885.63 / 2885.63 670 / 820 1450 / 1450 Balance 2885.63 / 2885.63 670 / 820 1450 / 1450 Lab / Micro Data 03/26/25 05:24 03/26/25 05:24 Labs: Laboratory Results - last 24 hr 03/25/25 06:48: WBC 11.3 H, RBC 3.75 L, Hgb 11.9 L, Hct 36.0 L, MCV 96.0, MCH 31.7, MCHC 33.1, RDW Std Deviation 48.8 H, RDW Coeff of Laurent 13.7, Plt Count 264, MPV 10.6, Immature Gran % (Auto) 0.600, Neut % (Auto) 85.9 H, Lymph % (Auto) 7.1 L, [place] % (Auto) 4.9, Eos % (Auto) 1.3, Baso % (Auto) 0.2, Absolute Neuts (auto) 9.7 H, Absolute Lymphs (auto) 0.80 L, Nucleated RBC % 0, Sodium 139, Potassium 3.6, Chloride 105, Carbon Dioxide 21.0, Anion Gap 14, BUN 16, Creatinine 0.88, Estim Creat Clear Calc 57.84, Est GFR (MDRD) Non-Af 71, BUN/Creatinine Ratio 18.3, Glucose 80, Calcium 8.0 03/26/25 05:24: WBC 8.0, RBC 3.99 L, Hgb 12.2, Hct 38.3, MCV 96.0, MCH 30.6, M CHC 31.9 L, RDW Std Deviation 46.5 H, RDW Coeff of Laurent 13.2, Plt Count 304, MPV 10.5, Immature Gran % (Auto) 0.500, Neut % (Auto) 77.3 H, Lymph % (Auto) 13.2 L, [place] % (Auto) 6.8, Eos % (Auto) 2.1, Baso % (Auto) 0.1, Absolute Neuts (auto) 6.2, Absolute Lymphs (auto) 1.06, Nucleated RBC % 0, Sodium 138, Potassium 3.6, Chloride 102, Carbon Dioxide 21.4, Anion Gap 15, BUN 17, Creatinine 0.87, Estim Creat Clear Calc 58.50, Est GFR (MDRD) Non-Af 72, BUN/Creatinine Ratio 19.2, G [place] 69 L, Calcium 8.7 Radiography Diagnostic Testing: Radiology Impression Abdomen/Pelvis CT 03/26/25 07:00 IMPRESSION: Persistent signs of sigmoid diverticulitis. The inflammatory change has improved as well as the small fluid collection. Minimal remaining tiny air bubbles surrounding the sigmoid colon. Reading Location: [facility] Physical Exam Const alert and no apparent distress Constitutional Narrative: Nontoxic. Afebrile. Resp normal respiratory effort, no retractions, no use of accessory muscles and clear to auscultation bilaterally Cardio regular rate, regular rhythm, S1 normal heart sound and S2 normal heart sound GI normal to inspection, nondistended, normoactive bowel sounds and soft to palpation GI Narrative: Still with abdominal tenderness but much improved from previous. Extremity normal to inspection and full ROM Neuro moves all extremities Sensorium / Orientation: awake and alert Psych affect normal Assessment & Plan Assessment/Plan (1) Abscess of sigmoid colon due to diverticulitis: PLAN: Symptomatically improved. Continue with pip/tazo. General surgery following. No imminent plans for surgery. pain control. repeat CT: persistent sigmoid diverticulitis. Inflammatory change has improved as well as the small fluid collection. Minimal remaining tiny air bubbles surround the sigmoid colon. Diet now advanced to clears. (2) Ileus: PLAN: supportive mgmt. Likely 2/2 above. appears to be resolved on CT. (3) Acidosis, lactic: PLAN: Resolved with IVF. PLAN: Plan VTE prophylaxis: SCDs. Charges/Coding Visit Charges Inpatient E&M: 97579 Subs Hosp L2
[2025-03-26] MEDS: Pantoprazole Sodium 40 MG in 0.9% Normal Saline (100mL MB+) 100 ML 330 MG IV ×2 (09:23→21:16)
[2025-03-26 14:00] VITALS: BP 143/88; PULSE 125; RESP 16; TEMP 36.9; O2SAT 98
[2025-03-26] MEDS: oxyCODONE 5 MG Tablet PO ×2 (15:10→22:14)
[2025-03-26 20:00] VITALS: BP 148/83; PULSE 113; RESP 15; TEMP 36.7; O2SAT 97
[2025-03-26] MEDS: Gabapentin 600 MG Tablet PO (21:20)
[2025-03-26 23:00] VITALS: RESP 15
[2025-03-27 04:00] VITALS: BP 131/80; PULSE 101; RESP 15; TEMP 36.9; O2SAT 95
[2025-03-27] MEDS: Piperacil/Tazobactam 3.375 GM in 0.9% Normal Saline (50mL MB+) 50 ML IV (05:17)
[2025-03-27] MEDS: oxyCODONE 5 MG Tablet PO ×2 (05:17→11:52)
[2025-03-27 06:00] VITALS: BMI 28.5
[2025-03-27 06:14] LABS: Absolute Lymphocyte Count 1.28 X10^3/uL (0.83-4.51); Absolute Neutrophil Count 5.3 X10^3/uL (2.0-7.7); Basophil# 0.02 X10^3/uL; Basophil% 0.3 % (0-1); Eosinophil# 0.13 X10^3/uL; Eosinophils% 1.7 % (0-5); Hematocrit 39.8 % (37-47); Hemoglobin 13.5 g/dL (12.0-15.0); Lymphocyte # 1.28 X10^3/ul (0.83-4.51); Lymphocyte % 16.7 % (19-41); Mean Corp Hgb Conc 33.9 g/dL (32-36); Mean Corpuscular Hgb 31.3 pg (27.0-32.0); Mean Corpuscular Volume 92.3 fL (81-99); Mean Platelet Vol. 10.3 fl (6.2-12.0); Monocyte# 0.85 X10^3/uL; Monocyte% 11.1 % (0-10); NRBC Flagged by Analyzer 0 % (0-5); Neutrophil # 5.31 X10^3/uL (2.7-7.7); Neutrophil % 69.3 % (47-70); Platelet Count 348 K/mm3 (150-450); RBC Distribution Width CV 12.9 % (11.6-14.6); Red Blood Count 4.31 M/mm3 (4.2-5.4); White Blood Count 7.7 K/mm3 (4.4-11.0)
[2025-03-27 06:42] LABS: Anion Gap 12 (5-15); BUN 8 mg/dL (4-19); BUN/Creat Ratio 9.9 RATIO (10-20); Calcium,Total 8.3 mg/dL (7.6-11.0); Carbon Dioxide 25.1 mmol/L (21.0-32.0); Chloride 104 mmol/L (98-108); Creatinine, Serum 0.85 mg/dL (0.70-1.20); EST Glomerular Filtration Rate 74 (>60); Estimated Creatinine Clearance 59.84 ml/min (50-250); Glucose 124 mg/dL (70-99); Potassium 3.4 mmol/L (3.3-5.1); Sodium Level 141 mmol/L (133-145)
[2025-03-27 10:00] VITALS: BP 149/89; PULSE 101; RESP 18; TEMP 36.6; O2SAT 100
[2025-03-27] MEDS: Pantoprazole Sodium 40 MG in 0.9% Normal Saline (100mL MB+) 100 ML 330 MG IV (10:32)
--- NOTE | 2025-03-27 12:46 | DS.PCM_ITS ---
Providers Date of Admission: 03/23/25 Date of Discharge: 03/27/25 Primary Care Physician: Dr. Robert Boland MD Consultations 03/23/25 21:57 Consult: General Surgery Routine Consulting Provider: Michael Bowers Reason for Consult: Diverticulitis, abscess EMERGENT Consult: No MD Notified: Yes Date Notified: 03/23/25 Time Notified: 20:15 Method of Notification: ED Physician Initiated Reason For Visit: ACUTE DIVERTICULITIS, ABSCESS Diagnosis Discharge Diagnosis (1) Abscess of sigmoid colon due to diverticulitis: Status: Acute Code(s): K57.20 - Diverticulitis of large intestine with perforation and abscess without bleeding (2) Ileus: Status: Acute Code(s): K56.7 - Ileus, unspecified (3) Acidosis, lactic: Status: Acute Code(s): E87.20 - Acidosis, unspecified Medications at Discharge Home Medications gabapentin 300 mg capsule 600 mg PO QHS Back Pain 06/29/17 tramadol 50 mg tablet 50 mg PO QHS Back Pain 06/29/17 magnesium oxide 400 mg (241.3 mg magnesium) tablet 400 mg PO BID supplement 06/24/24 pantoprazole 40 mg tablet,delayed release 40 mg PO QHS acid reflux 03/23/25 amoxicillin 875 mg-potassium clavulanate 125 mg tablet 1 tab PO BID #28 tabs 03/27/25 Hospital Course Operations None Procedures - (CT abdomen pelvis x 2) Summary of Care Provided Minutes Spent on Discharge: 38 Hospital Course: Mrs. Smith is a 69-year-old white female who presented to the emergency department [facility] on 03/23/2025 with a chief complaint of abdominal pain. Symptoms started the evening prior to presentation and started as crampy bilateral lower quadrant pain with some associated nausea but no emesis. Last bowel movement was on the evening prior to admission. She denied fever or chills but reported her pain was worsening so she like to be evaluated emergency department. Patient did have peritoneal signs at the time of presentation. Vital signs on presentation showed temperature of 97.7, heart rate 100, respiratory was 20, blood pressure is 121/73 and pulse ox was 95% on room air. She had a significant leukocytosis with a white count of 16.1 and appeared to be hemoconcentrated some with a hemoglobin of 15.2. There was a left shift. BUN was slightly elevated at 23 with serum creatinine 1.2. Lactic acid was 2.2. CT of the abdomen pelvis was performed and showed acute diverticulosis of the distal sigmoid colon and possible intramural abscess measuring 2.4 cm with punctate foci of extraluminal air up to 5 to 6 cm from involved: As well as prominent loops of small bowel without abrupt transition point consistent with ileus and cholelithiasis. Given the diagnosis of acute complicated diverticulitis she was admitted to the hospital, placed on IV fluids, IV antiemetics, and IV antibiotics as well as pain medication. General surgery was consulted. Initial plan was to monitor clinically and take her to the OR if she developed fever or other signs that were concerning for worsening infection. A repeat CT was performed on 03/26/2025 and showed persistent signs of sigmoid diverticulitis but improved inflammatory findings as well as fluid collection with a few tiny areas of bubbles surrounding the sigmoid colon. Clinically she was improving so her diet was initiated with clears and advance as tolerated. Her pain was dramatically better and patient was tolerating p.o. diet without difficulty. She was reevaluated by general surgery on the a.m. of 03/27/2025 and given her clinical improvement they felt that she was stable for discharge home. She will be treated with 14 days of Augmentin and it was recommended that she follow-up with general surgery in the next 14 days. She was given referral to see Dr. Bowers and she is to call Saturday to set up this appointment. She is to follow-up with her primary care physician as needed. A prescription for oral antibiotics was sent to local pharmacy prior to discharge. Discharge diagnoses: Acute complicated diverticulitis with microperforation Ileus Elevated serum creatinine secondary to dehydration Leukocytosis Lactic acidosis Chronic back pain GERD Physical Exam Const alert, oriented x3, no apparent distress and no limitations Constitutional Narrative: overweight, Upper middle-aged, white female, sitting up in bed watching television, appears comfortable, nontoxic General Appearance: cooperative, comfortable, well kempt and well developed Exam Limitations: no limitations Nutritional Appearance: overweight HEENT normocephalic, head/scalp atraumatic, hearing grossly normal bilaterally and moist oral mucous membranes Eyes conjunctivae normal Eyes Narrative: no scleral icterus Neck supple Neck Narrative: Trachea midline Resp normal respiratory effort, no retractions, no use of accessory muscles and clear to auscultation bilaterally Auscultation: Negative for rales, rhonchi or wheezes Cardio regular rate, regular rhythm, S1 normal heart sound, S2 normal heart sound, no murmurs, no rub, no gallops and no clicks GI normal to inspection, nondistended, normoactive bowel sounds and soft to palpation GI Narrative: Minimal tenderness left lower quadrant Extremity no clubbing, cyanosis or edema Extremity Narrative: 2+ pedal pulses Skin no wounds, skin turgor normal and no jaundice Neuro oriented x3, moves all extremities and no focal motor deficits Speech: speech normal Psych affect normal Psych Narrative: Very pleasant, interacts appropriately Weight / BMI Weight Weight: 73.1 kg Body Mass Index (BMI) 28.5 ABG / Lab / Microbiology Data 03/27/25 05:44 03/27/25 05:44 Laboratory: Laboratory Results - last 24 hr 03/27/25 05:44: WBC 7.7, RBC 4.31, Hgb 13.5, Hct 39.8, MCV 92.3, MCH 31.3, MCHC 33.9 D, RDW Std Deviation 44.0 H, RDW Coeff of Laurent 12.9, Plt Count 348, MPV 10.3, Immature Gran % (Auto) 0.900, Neut % (Auto) 69.3, Lymph % (Auto) 16.7 L, M cameron % (Auto) 11.1 H, Eos % (Auto) 1.7, Baso % (Auto) 0.3, Absolute Neuts (auto) 5.3, Absolute Lymphs (auto) 1.28, Nucleated RBC % 0, Sodium 141, Potassium 3.4, Chloride 104, Carbon Dioxide 25.1, Anion Gap 12, BUN 8, Creatinine 0.85, Estim Creat Clear Calc 59.84, Est GFR (MDRD) Non-Af 74, BUN/Creatinine Ratio 9.9 L, G lucose 124 H, Calcium 8.3 D/C Instructions Discharge Diet: Light diet - advance as tolerated Discharge Activity: Return to Normal Activity (As tolerated) DC O2, CPAP, BIPAP Needs Home O2 Discharge instructions: No Meaningful Use Info Meaningful Use Meaningful Use Diagnoses (Choose all that apply): None applicable Ischemic Stroke Statin Dosing Therapy Reference: STATIN DOSE THERAPY REFERENCE: * Patients > 75 years receive moderate or high dose statin therapy. * Patients 75 years or YOUNGER should receive HIGH intensity statin dose unless contraindicated. You will be required to document reason for non-treatment if statin daily dose does not meet guidelines. HIGH DOSE STATIN THERAPY DAILY Atorvastatin > than or = to 40 mg Rosuvastatin > than or = to 20 mg Amlodipine + Atorvastatin > than or = to 2.5/40 mg Ezetimibe + Simvastatin 10/80 mg Simvastatin 80mg Discharge Plan Admission Admit Date/Time: 03/23/25 20:13 Primary Reason for Your Visit: Abdominal pain Attending Provider: Belle Mas Primary Care Provider: Robert Boland Consulting Providers: Michael Bowers; Hillary Lynn; Robert Peters Instructions Additional Instructions / Restrictions: 1. Please complete antibiotics as directed and follow-up with surgery as noted below Discharge Orders/Prescriptions Prescriptions: New amoxicillin-pot clavulanate 875-125 mg tablet 1 tab PO BID Qty: 28 0RF Continued tramadol 50 MG tablet 50 mg PO QHS Patient Comments: TAKE 1 TO 2 TABLETS every evening and every 6 (SIX) hours as needed for pain. gabapentin 300 MG capsule 600 mg PO QHS Patient Comments: magnesium oxide 400 mg (241.3 mg magnesium) tablet 400 mg PO BID pantoprazole 40 MG tablet 40 mg PO QHS Referrals / Follow Up: Michael Bowers MD [Med Staff - Active Staff] - Within 2 Weeks (Please call on Saturday to set up a follow-up appointment) Robert Boland MD [Primary Care Provider] - See Referral Note (As needed) Disposition Disposition (needs filled in before D/C Order can be placed): Home, Self Care Charges/Coding Visit Charges Inpatient E&M: 56116 Disch Hosp >30min
--- NOTE | 2025-03-27 12:47 | PN.SURG_ITS ---
Subjective Subjective Patient seen and evaluated on rounds this morning. She states that her abdominal pain continues to resolve. She has tolerated diet without difficulty. She is hoping to go home soon. Objective Data Objective Data Vital Signs: Vital Signs Temp Pulse Resp BP Pulse Ox O2 Del Method 97.9 F 101 H 18 149/89 H 100 Room Air 03/27/25 10:00 03/27/25 10:00 03/27/25 10:00 03/27/25 10:00 03/27/25 10:00 03/27/25 10:00 Oxygen Delivery Method Room Air Weight: 161 lb 2.526 oz Body Mass Index (BMI) 28.5 Intake & Output: Intake and Output for Last 24 Hours 03/25/25 03/26/25 03/27/25 23:59 23:59 23:59 Intake Total 670 / 820 1950 / 1950 500 / 500 Balance 670 / 820 1950 / 1950 500 / 500 Lab / Micro Data 03/27/25 05:44 03/27/25 05:44 Labs: Laboratory Results - last 24 hr 03/27/25 05:44: WBC 7.7, RBC 4.31, Hgb 13.5, Hct 39.8, MCV 92.3, MCH 31.3, MCHC 33.9 D, RDW Std Deviation 44.0 H, RDW Coeff of Laurent 12.9, Plt Count 348, MPV 10.3, Immature Gran % (Auto) 0.900, Neut % (Auto) 69.3, Lymph % (Auto) 16.7 L, M cameron % (Auto) 11.1 H, Eos % (Auto) 1.7, Baso % (Auto) 0.3, Absolute Neuts (auto) 5.3, Absolute Lymphs (auto) 1.28, Nucleated RBC % 0, Sodium 141, Potassium 3.4, Chloride 104, Carbon Dioxide 25.1, Anion Gap 12, BUN 8, Creatinine 0.85, Estim Creat Clear Calc 59.84, Est GFR (MDRD) Non-Af 74, BUN/Creatinine Ratio 9.9 L, G lucose 124 H, Calcium 8.3 Physical Exam Narrative She is alert and oriented x 3. She is in no acute distress. Abdomen is soft and nondistended. Very mild left lower quadrant discomfort with palpation. Certainly no rebound or guarding Assessment & Plan Assessment/Plan (1) Acute diverticulitis: PLAN: Plan The patient is a 69-year-old female with sigmoid diverticulitis with microperforation. She continues to improve clinically with IV antibiotics. She has tolerated diet advancement. At this point I feel that she is okay to be discharged home from a surgical standpoint. Would recommend a low residue diet for the next several weeks and this was discussed this morning. Would recommend about 2 weeks of oral antibiotics on discharge. Patient should also follow-up with in 2 weeks as well. Plan was also discussed with hospitalist
[2025-03-27 14:00] VITALS: BP 138/82; PULSE 88; RESP 18; TEMP 36.7; O2SAT 100
== END 2025-03-27 14:53 | disposition home or self-care (01) | DRG 392 ==
LOC: ED 20:07 → MS3 20:23
PROVIDERS: Admitting Provider Family Medicine; Emergency Provider Emergency Medicine; PCP Family Medicine; Referring Provider Family Medicine; Visit Provider Internal Medicine
DX: K57.20 Diverticulitis of large intestine with perforation and abscess without bleeding (principal); E87.20 Acidosis, unspecified; K56.7 Ileus, unspecified; N18.30 Chronic kidney disease, stage 3 unspecified; K21.9 Gastro-esophageal reflux disease without esophagitis; D72.829 Elevated white blood cell count, unspecified; M54.9 Dorsalgia, unspecified; E86.0 Dehydration; E66.3 Overweight; Z87.891 Personal history of nicotine dependence; G89.29 Other chronic pain; R79.89 Other specified abnormal findings of blood chemistry; Z79.899 Other long term (current) drug therapy; Z79.891 Long term (current) use of opiate analgesic
CPT/HCPCS: 36415; 74177; 80048; 80053; 83605; 85025; 85610; 85730; 97166; 99284; Q9967; A4216; J2405

== ENCOUNTER → 2025-04-20 | Outpatient (CLI) | payer MEDICARE, BC, SELFPAY ==
[2025-04-20 18:11] LABS: Hematocrit 44.0 % (37-47); Hemoglobin 14.0 g/dL (12.0-15.0); Immature Granulocytes Count 0.020 X10^3/uL (0.0-0.0); Mean Corp Hgb Conc 31.8 g/dL (32-36); Mean Corpuscular Volume 95.0 fL (81-99); Mean Platelet Vol. 10.8 fl (6.2-12.0); NRBC Flagged by Analyzer 0 % (0-5); Platelet Count 328 K/mm3 (150-450); RBC Distribution Width CV 13.2 % (11.6-14.6); RBC Distribution Width SD 45.8 fl (35.1-43.9); Red Blood Count 4.63 M/mm3 (4.2-5.4); White Blood Count 5.7 K/mm3 (4.4-11.0)
[2025-04-20 18:57] LABS: AST(SGOT) 15 U/L (<=31); Alanine Aminotransfer ALT/SGPT 11 U/L (<=34); Albumin, Serum 4.1 g/dL (3.4-4.8); Alkaline Phosphatase 102 U/L (35-104); Anion Gap 13 (5-15); BUN 17 mg/dL (4-19); BUN/Creat Ratio 19.9 RATIO (10-20); Calcium,Total 9.7 mg/dL (7.6-11.0); Carbon Dioxide 27.1 mmol/L (21.0-32.0); Chloride 100 mmol/L (98-108); Globulin 3.2 g/dL (2.2-4.2); Glucose 101 mg/dL (70-99); Potassium 3.8 mmol/L (3.3-5.1)
[2025-04-22 15:08] LABS: PROEL- A/G Ratio 1.0 (0.7-1.7); PROEL- Albumin 3.3 g/dL (2.9-4.4); PROEL- Alpha-1 Globulin 0.3 g/dL (0.0-0.4); PROEL- Alpha-2 Globulin 0.9 g/dL (0.4-1.0); PROEL- Beta Globulin 1.3 g/dL (0.7-1.3); PROEL- Gamma Globulin 0.9 g/dL (0.4-1.8); PROEL- Globulin, Total 3.4 g/dL (2.2-3.9); PROEL- TOTAL PROTEIN 6.7 g/dL (6.0-8.5); PROEL-M-Spike Not Observed g/dL (Not Observed)
== END | disposition home or self-care (01) ==
LOC: MFPLAB 14:58
PROVIDERS: PCP Family Medicine; Referring Provider Family Medicine; Visit Provider Family Medicine
DX: L29.9 Pruritus, unspecified (principal)
CPT/HCPCS: 36415; 80053; 84165; 84443; 85025

== ENCOUNTER 2025-05-25 08:33 | Day surgery (SDC) | payer MEDICARE, BC, SELFPAY ==
--- NOTE | 2025-05-21 15:00 | PAT.ANESEVAL ---
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 When Was Last Pacemaker Check QUESTION #4 FULL TEXT: You/Your Family Experience fever (hyperthermia) with Anesthesia Last Oral Intake Last Oral intake: Last Oral Intake NPO since Meds taken in AM with sips of water? 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 operator Female Yes 05/21/25 14:30 HX of Motion Sickness No 05/21/25 14:30 HX of N/V After Surgery Yes 05/21/25 14:30 Non-Smoker Yes 05/21/25 14:30 Duration of Surgery greater No 05/21/25 14:30 than 60 minutes Number of Risk Factors 3 05/21/25 14:30 PONV Score Moderate Risk 05/21/25 14:30 Height & Weight Height & Weight: Anesthesia: Height & Weight Height 5 ft 3 in 04/07/25 09:37 Respiratory Assessment Respiratory Assessment - ribbon sweatband operator: Respiratory Tract Infection Hx - 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 Has anyone observed you stop No 05/21/25 14:30 breathing during sleep? STOP Results Negative 05/21/25 14:30 QUESTION #5 FULL TEXT : Do you snore loudly (louder than talking or can be heard through closed doors)? 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 Tobacco Use Smoking Status Former smoker 05/21/25 14:30 Hx Tobacco Use No 05/21/25 14:30 Years Smoking Packs Smoked per Day Smoking Cessation Date was No - quit smoking greater 05/21/25 14:30 within the last 15 years than 15 years ago Hx Smoking Cessation Date Hx Smoking Cessation No 05/21/25 14:30 Counseling Hematologic Medial History Hematologic Hx - ribbon sweatband operator: Hematologic Medical Hx - stripper preliminary Hx of Blood Transfusion No 05/21/25 14:30 Hx of Transfusion in last 3 No 05/21/25 14:30 Months Date of Last Transfusion (if within last 3 months) Ever experience any problems No 05/21/25 14:30 with transfusion(s)? Specify any problems Hx of Preganancy in last 3 No 05/21/25 14:30 Months Nurse Filling Out Transfusion DSCHRIBER 05/21/25 14:30 & Questions: Date: 05/21/25 05/21/25 14:30 Time: 14:33 05/21/25 14:30 Patient unable to answer at this time (ie. confused, unrespo /Reproduction History /Reproductive History - ribbon sweatband operator: /Reproductive Hx- ribbon sweatband operator Hx Now No 05/21/25 14:30 Gestational Age (in weeks): EDC: Hx Hx Para Hx Section SAB No 05/21/25 14:30 PFSH Medical History (Updated 05/21/25 @ 14:39 by Cristin Stanley) Post-menopausal Easy bruising Restless legs Migraine headache Back pain History of diverticulitis Shortness of breath on exertion Leg cramps History of pain when walking History of edema Cardiology follow-up encounter History of stress test GERD (gastroesophageal reflux disease) Sixth nerve palsy of left eye IBS (irritable bowel syndrome) Home Medications ?Medication ?Instructions ?Recorded ?Last Taken ?Type gabapentin 300 mg capsule 600 mg PO QHS Back Pain 06/29/17 06/28/17 History tramadol 50 mg tablet 50 mg PO QHS Back Pain 06/29/17 06/28/17 History magnesium oxide 400 mg (241.3 mg 400 mg PO QHS supplement 06/24/24 Unknown History magnesium) tablet pantoprazole 40 mg tablet,delayed 40 mg PO QHS acid reflux 03/23/25 Unknown History release Allergy/AdvReac Type Severity Reaction Status Date / Time nitroglycerin AdvReac Severe Other Verified 05/21/25 14:28 amlodipine AdvReac other Verified 05/21/25 14:28 Family History Father Myocardial infarction Mother No problems noted. Surgical History (Updated 05/21/25 @ 14:39 by Cristin Stanley) History of esophagogastroduodenoscopy (EGD) Hx of colonoscopy Hx of tonsillectomy H/O radiofrequency ablation (RFA) of nerve of lumbar spine H/O shoulder surgery History of spinal fusion Social History household members: spouse housing: house Smoking Status: Former smoker alcohol intake: never substance use type: does not use what type of physical activity do you participate in: none Audit: Pertinent Findings Pertinent Findings EKG Perinent findings: 06/30/2017. Normal sinus rhythm. Inferior infarct, age undetermined. Stress test pertinent findings: 07/08/2017. EF of 82%. Rest and stress SPECT Cardiolite nuclear imaging demonstrate relatively uniform tracer uptake and myocardial perfusion appearing within normal limits. Recommendation Anesthesia Recommendation Anesthesia recommendation: OPTIMIZED for anesthesia
[2025-05-25] VITALS (9 sets, daily range): BP systolic 123–146; BP diastolic 62–79; PULSE 66–80; RESP 14–18; TEMP 36.1–36.4; O2SAT 93–97; BMI 27.7
[2025-05-25] MEDS: Lactated Ringers 1,000 ML 15 ML IV (09:05)
--- NOTE | 2025-05-25 09:14 | PCM.HP.BLA ---
History and Physical Date of Admission: 05/25/25 Intake Vital Signs 03/24/2513:18 04/07/2509:37 Height 5 ft 3 in 5 ft 3 in Weight: 160 lb BMI 28.3 BP 136/83 H Blood Pressure Location Rt brachial Position Sitting Respiration 17 Pulse 81 Pulse Source Monitor Pulse Oximetry (%) 96 Oxygen Delivery Method room air Intake Visit Reasons: HOSPITAL F/U - DIVERTICULITIS Chief Complaint: hospital f/u diverticulitis Is patient in pain?: No Allergies nitroglycerin Adverse Reaction (Severe, Verified 04/07/25 09:38) Otheramlodipine Adverse Reaction (Verified 04/07/25 09:38) other Medications ?Medication ?Instructions ?Recorded ?Confirmed ?Type gabapentin 300 mg capsule 600 mg PO QHS Back Pain 06/29/17 04/07/25 History tramadol 50 mg tablet 50 mg PO QHS Back Pain 06/29/17 04/07/25 History magnesium oxide 400 mg (241.3 mg 400 mg PO BID supplement 06/24/24 04/07/25 History magnesium) tablet pantoprazole 40 mg tablet,delayed 40 mg PO QHS acid reflux 03/23/25 04/07/25 History release amoxicillin 875 mg-potassium 1 tab PO BID #28 tabs 03/27/25 04/07/25 Rx clavulanate 125 mg tablet Have you fallen in the past year?: No PFSH Medical History Former tobacco use Sixth nerve palsy of left eye GERD (gastroesophageal reflux disease) Overweight CKD (chronic kidney disease), stage III IBS (irritable bowel syndrome) Frequent headaches Surgical History Hx of tonsillectomy H/O radiofrequency ablation (RFA) of nerve of lumbar spine H/O shoulder surgery History of spinal fusion Family History Father Myocardial infarctionMother No problems noted. Social History household members: spouse housing: house Smoking Status: Former smoker alcohol intake: never substance use type: does not use what type of physical activity do you participate in: none HPI HPI HPI: Patient is a 69-year-old female following up after severe diverticulitis. The patient reports she is doing better with no nausea or vomiting. She is still following a diverticulitis diet. She has 3 days left of antibiotics. ROS General General: Yes fatigue; No weight change, appetite, colon cancer, breast cancer or weakness HEENT HEENT: Yes eye surgery; No difficulty swallowing, eye injury, swollen glands or hoarseness Endo Endocrine: No thyroid disease, diabetes mellitus, thyroid cancer, Hair loss, heat intolerance or cold intolerance Skin Skin: No rash or changing moles Musc Musculoskeletal: Yes back problems; No arthritis, rheumatoid arthritis, gout or joint pain Cardio Cardiovascular: No murmur, pacemaker, heart disease, atrial fibrillation, high blood pressure, heart attack, heart stent, palpitations, shortness of breath with exertion or chest pain Psych Psychiatric: No depression, anxiety or hearing voices Resp Respiratory: Yes shortness of breath, No sleep apnea, No cough, No COPD, No asthma, No emphysema and No wheezing Gastro Gastrointestinal: Yes abdominal pain, Yes nausea or vomiting, Yes diarrhea, No constipation, No blood in stool, Yes acid reflux, No hemorrhoids, No ulcers, No gallbladder problem and No black,tarry stools Armaan Hematologic: No blood thinners, No blood disorders, No bleeding, No anemia and No blood clots Neuro Neurologic: No system reviewed and no additional complaints, except as documented, No as per HPI, No abnormal gait, No abnormal hearing, No abnormal movements, No abnormal speech, No behavioral changes, No burning sensations, No confusion, No convulsions, No disequilibrium, No dizziness, No localized weakness, No frequent falls, No headache(s), No lack of coordination, No loss of vision, No memory loss, No numbness, No other visual disturbances, No radicular pain, No restless legs, No sensory deficit, No syncope, No tingling, No tremor(s), No weakness and No other Exam Const General: cooperative Orientation: alert and oriented x3 HENMT Head: normal to inspection Neck Neck: normal visual inspection and full ROM Chest Chest palpation & inspection: normal inspection of the chest Resp Effort & Inspection: normal respiratory effort Auscultation: clear to auscultation bilaterally Cardio Rate: regular rate Rhythm: regular rhythm GI Inspection: non-distended Palpation: soft and nontender Skin General: no rashes or lesions noted Neuro General: patient alert and patient oriented x3 Extrem General: full ROM Psych Appearance: grossly normal Mental Status: mental status grossly normal Assessment and Plan Assessment and Plan (1) Acute diverticulitis: Status: Acute Plan: The patient would like to have sigmoid colectomy to remove that area of the colon. I discussed performing a colonoscopy first in 6 to 8 weeks once the inflammation fully subsides. I will get her on the schedule for colonoscopy. She has had failed preps in the past [facility] I explained endoscopy in detail to the patient. I explained the risks including but not limited to stroke or heart attack with anesthesia, perforation of the GI tract, bleeding, infection. I explained that any of these could necessitate further emergency surgery. The patient understands and all questions were answered sufficiently. The patient wishes to proceed with procedure. Michael Bowers MD Pager: [facility] [address] [place] [address], [address] [place] [phone] Office: I have examined the patient and the H&P has been reviewed. There are no clinical changes since date of exam.
--- NOTE | 2025-05-25 09:18 | PCM.PRE.AN2 ---
ASA Classification* ASA Classification ASA Classification: 2 Assessment & Plan Anesthesia* Anesthesia Assessment Anesthesia Assessment: Discussed sedation and/or anesthesia options, risks, benefits, and alternatives with patient/parents/legal guardian/POA. Questions invited. The patient/parents/legal guardian/POA seems to understand and agrees to proceed with anesthesia plan. Reviewed the physical assessment, medical history, allergy history and patient home medications list prior to surgery/procedure/anesthetic and documented any changes. Performed airway and anesthesia risk assessments. Anesthesia Type Anesthesia Type: MAC History Source History Obtained from:: Patient and Chart Anesthesia Focused Assessment* Temperature: 97.5 F Pulse Rate: 66 Blood Pressure: 124/62 Respiratory Rate: 18 Pulse Ox: 96 Oxygen Delivery Method: Room Air Airway Assessment Mouth opens: >3 cm Mallampati Score: II Teeth Condition: Intact Neck Range of motion (ROM): Full ROM Labs Anesthesia Preop lab: CBC WBC 5.7 K/mm3 (4.4-11.0) 04/20/25 14:59 04/20/25 RBC 4.63 M/mm3 (4.2-5.4) 04/20/25 14:59 04/20/25 Hgb 14.0 g/dL (12.0-15.0) 04/20/25 14:59 04/20/25 Hct 44.0 % (37-47) 04/20/25 14:59 04/20/25 Plt Count 328 K/mm3 (150-450) 04/20/25 14:59 04/20/25 CHEMISTRY Potassium 3.8 mmol/L (3.3-5.1) 04/20/25 14:59 04/20/25 Sodium 141 mmol/L (133-145) 04/20/25 14:59 04/20/25 Magnesium 2.6 mg/dL (1.6-2.6) 03/15/22 11:31 03/15/22 Phosphorus 3.0 mg/dL (2.5-4.9) 03/15/22 11:31 03/15/22 BUN 17 mg/dL (4-19) 04/20/25 14:59 04/20/25 Creatinine 0.84 mg/dL (0.70-1.20) 04/20/25 14:59 04/20/25 Glucose 101 mg/dL (70-99) H 04/20/25 14:59 04/20/25 TSH 2.190 uIU/mL (0.300-4.200) 04/20/25 14:59 04/20/25 COAG PT 16.5 SECONDS (11.7-14.9) H 03/24/25 05:29 03/24/25 Pre-Assessment Diagnosis/Proposed Procedure Planned Operative Procedure(s): COLONOSCOPY Anesthesia History Anesthesia History - house calls nurse practitioner: Anesthesia History - house calls nurse practitioner Hx Hospitalization Yes: 02/2025 DIVERTICULITIS 05/21/25 14:30 Any Problems With Anesthesia Yes: NAUSEA,VOMITING 05/21/25 14:30 Cholinesterase deficiency No 05/21/25 14:30 You/Your Family Experience No 05/21/25 14:30 fever (hyperthermia) with Relationship Recent Exposure to Contagious No 05/25/25 08:55 Disease Does patient have nerve No 05/21/25 14:30 stimulator Patient instructed to have device shut off --Does patient have Pacemaker No 05/25/25 08:55 or ICD? When Was Last Pacemaker Check QUESTION #4 FULL TEXT: You/Your Family Experience fever (hyperthermia) with Anesthesia Last Oral Intake Last Oral intake: Last Oral Intake NPO since 16:30 05/25/25 08:55 Meds taken in AM with sips of Yes 05/25/25 08:55 water? Meds patient instructed to aspirin for GAINES @ 0730 05/25/25 08:55 take am of surgery Any additional information?: Yes Meds taken in AM with sips of water?: Yes PONV PONV - house calls nurse practitioner: PONV - house calls nurse practitioner Female Yes 05/21/25 14:30 HX of Motion Sickness No 05/21/25 14:30 HX of N/V After Surgery Yes 05/21/25 14:30 Non-Smoker Yes 05/21/25 14:30 Duration of Surgery greater No 05/21/25 14:30 than 60 minutes Number of Risk Factors 3 05/21/25 14:30 PONV Score Moderate Risk 05/21/25 14:30 Height & Weight Height & Weight: Anesthesia: Height & Weight Height 5 ft 3 in 05/25/25 08:55 Weight: 71 kg 05/25/25 08:55 Body Mass Index (BMI) 27.7 05/25/25 08:55 Respiratory Assessment Respiratory Assessment - house calls nurse practitioner: Respiratory Tract Infection Hx - house calls nurse practitioner Hx Respiratory Tract Infection No 05/21/25 14:30 STOP Sleep Apnea STOP Sleep Apnea - house calls nurse practitioner: STOP Sleep Apnea - house calls nurse practitioner Hx Hypertension No 05/21/25 14:30 Hx Sleep Apnea No 05/21/25 14:30 CPAP BIPAP Do you snore loudly (louder No 05/21/25 14:30 than talking or can be heard Do you often feel tired/ No 05/21/25 14:30 fatigued/ sleepy during daytime? Has anyone observed you stop No 05/21/25 14:30 breathing during sleep? STOP Results Negative 05/21/25 14:30 QUESTION #5 FULL TEXT : Do you snore loudly (louder than talking or can be heard through closed doors)? Tobacco Use History Tobacco Use History - house calls nurse practitioner: Tobacco Use History - house calls nurse practitioner Tobacco Use Smoking Status Former smoker 05/21/25 14:30 Hx Tobacco Use No 05/21/25 14:30 Years Smoking Packs Smoked per Day Smoking Cessation Date was No - quit smoking greater 05/21/25 14:30 within the last 15 years than 15 years ago Hx Smoking Cessation Date Hx Smoking Cessation No 05/21/25 14:30 Counseling Hematologic Medial History Hematologic Hx - house calls nurse practitioner: Hematologic Medical Hx - construction management assistant Hx of Blood Transfusion No 05/21/25 14:30 Hx of Transfusion in last 3 No 05/21/25 14:30 Months Date of Last Transfusion (if within last 3 months) Ever experience any problems No 05/21/25 14:30 with transfusion(s)? Specify any problems Hx of Preganancy in last 3 No 05/21/25 14:30 Months Nurse Filling Out Transfusion DSCHRIBER 05/21/25 14:30 & Questions: Date: 05/21/25 05/21/25 14:30 Time: 14:33 05/21/25 14:30 Patient unable to answer at this time (ie. confused, unrespo /Reproduction History /Reproductive History - house calls nurse practitioner: /Reproductive Hx- house calls nurse practitioner Hx Now No 05/21/25 14:30 Gestational Age (in weeks): EDC: Hx Hx Para Hx Section SAB No 05/21/25 14:30 Active Medications Active Medications: Current Medications Generic Name Dose Route Start Last Admin Trade Name Shayan PRN Reason Stop Dose Admin Lactated Ringer's 1,000 mls @ 15 mls/hr 05/25/25 08:45 05/25/25 09:05 IV 15 mls/hr .Q48H SAURABH Administration PFSH Medical History Post-menopausal Easy bruising Restless legs Migraine headache Back pain History of diverticulitis Shortness of breath on exertion Leg cramps History of pain when walking History of edema Cardiology follow-up encounter History of stress test GERD (gastroesophageal reflux disease) Sixth nerve palsy of left eye IBS (irritable bowel syndrome) Home Medications ?Medication ?Instructions ?Recorded ?Last Taken ?Type gabapentin 300 mg capsule 600 mg PO QHS Back Pain 06/29/17 05/24/25 History tramadol 50 mg tablet 50 mg PO QHS Back Pain 06/29/17 05/24/25 History magnesium oxide 400 mg (241.3 mg 400 mg PO QHS supplement 06/24/24 05/24/25 History magnesium) tablet pantoprazole 40 mg tablet,delayed 40 mg PO QHS acid reflux 03/23/25 05/24/25 History release Allergy/AdvReac Type Severity Reaction Status Date / Time nitroglycerin AdvReac Severe Other Verified 05/25/25 08:53 amlodipine AdvReac other Verified 05/25/25 08:53 Family History Father Myocardial infarction Mother No problems noted. Surgical History History of esophagogastroduodenoscopy (EGD) Hx of colonoscopy Hx of tonsillectomy H/O radiofrequency ablation (RFA) of nerve of lumbar spine H/O shoulder surgery History of spinal fusion Social History household members: spouse housing: house Smoking Status: Former smoker alcohol intake: never substance use type: does not use what type of physical activity do you participate in: none Review of Systems (Anesthesia) ROS Narrative System reviewed and no additional complaints, except as documented.
[2025-05-25] MEDS: Lactated Ringers 500 ML IV (09:42)
--- NOTE | 2025-05-25 09:58 | OP.PROVAT_ITS ---
05/25/2025 Robert Boland [address] [place] [address] Re : Colonoscopy procedure for Solange Smith Dear Dr. Boland This procedure was performed on Sunday, May 25, 2025. My impressions and recommendations are as follows: Impressions : - The procedure was aborted due to the extreme difficulty of the procedure. - The [Location] is normal. - No specimens collected. Recommendations : - Discharge patient to home. - Resume previous diet. - Continue present medications. - Return to my office in 2 weeks. - Repeat colonoscopy after studies are complete for surveillance. My findings are described in the full procedure note, which is enclosed. If I can be of further assistance, please feel free to contact me at Doctor phone number(s): , Work: . Sincerely, Michael Bowers MD 05/25/2025 9:57:56 AM This report has been signed electronically.
--- NOTE | 2025-05-25 09:58 | OP.COLON_ITS ---
Patient Name: Solange Smith Procedure Date: 05/25/2025 9:16 AM Date of : 1955 Age: 69 Procedure: Colonoscopy Indications: Follow-up of diverticulitis Providers: Michael Bowers MD Referring MD: Robert Boland Medicines: Propofol per Anesthesia Patient Profile: This is a 69 year old female. Refer to note in patient chart for documentation of history and physical. Last Colonoscopy: several years ago. Complications: No immediate complications. Estimated blood loss: Minimal. Procedure: Pre-Anesthesia Assessment: - Prior to the procedure, a History and Physical was performed, and patient medications and allergies were reviewed. The patient's tolerance of previous anesthesia was also reviewed. The risks and benefits of the procedure and the sedation options and risks were discussed with the patient. All questions were answered, and informed consent was obtained. Prior Anticoagulants: The patient has taken no anticoagulant or antiplatelet agents. After reviewing the risks and benefits, the patient was deemed in satisfactory condition to undergo the procedure. After I obtained informed consent, the scope was passed under direct vision. Throughout the procedure, the patient's blood pressure, pulse, and oxygen saturations were monitored continuously. The pediatric colonoscope was introduced through the anus and advanced to the sigmoid colon. The colonoscopy was performed without difficulty. The patient tolerated the procedure well. The quality of the bowel preparation was good. Anatomical landmarks were photographed. The colonoscopy was aborted due to the extreme difficulty of the procedure. Withdrawing and reinserting the scope and applying abdominal pressure did not allow for the successful completion of the procedure. Scope In: 9:38:50 AM Scope Out: 9:51:55 AM Total Procedure Duration Time 0 hours 13 minutes 5 seconds Findings: The [Site] appeared normal. Impression: - The procedure was aborted due to the extreme difficulty of the procedure. - The [Location] is normal. - No specimens collected. Recommendation: - Discharge patient to home. - Resume previous diet. - Continue present medications. - Return to my office in 2 weeks. - Repeat colonoscopy after studies are complete for surveillance. Procedure Code(s): --- Professional --- 14246, 53, Colonoscopy, flexible; diagnostic, including collection of specimen(s) by brushing or washing, when performed (separate procedure) Diagnosis Code(s): --- Professional --- K57.32, Diverticulitis of large intestine without perforation or abscess without bleeding CPT copyright 2021 [employer]. All rights reserved. The codes documented in this report are preliminary and upon stenciling machine tender review may be revised to meet current compliance requirements. Michael Bowers MD 05/25/2025 9:57:56 AM This report has been signed electronically. Number of Addenda: 0 Note Initiated On: 05/25/2025 9:16 AM
--- NOTE | 2025-05-25 10:04 | PCM.POST.ANE ---
Anesthesia: Postop Eval I Current Vital Signs Temperature: 97 F Pulse Rate: 76 Blood Pressure: 123/74 Respiratory Rate: 16 Pulse Ox: 93 Oxygen Delivery Method: Room Air Assessment Airway patent: Yes Spontaneous unlabored respirations: Yes Mental status: Awake nausea: No Vomiting: No Anesthesia Complication: No Fluid Hydration Crystalloid volume administer (ml): 500 Total IV fluid infused: 500 Progress Note Anesthesia document: Postop Eval 1 completed: Yes
--- NOTE | 2025-05-25 13:10 | RAD_ITS ---
EXAM: Single contrast barium enema CLINICAL HISTORY: Unable to past sigmoid colon on scope. Recent sigmoid diverticulitis. COMPARISON: CT abdomen and pelvis of 03/26/2025. TECHNIQUE: Single contrast barium enema, along with director digital communications and post evacuation imaging. FINDINGS: A director digital communications film demonstrates an unremarkable bowel-gas pattern. Prior lower lumbar surgery noted, with bilateral pedicle screws extending from L4 through L5. Minimal sacroiliac joint degenerative changes are seen. Moderate right hemidiaphragm elevation is noted. No rectal abnormality is seen. Extensive sigmoid diverticulosis is seen, extending to a lesser extent into the descending colon. This results in incomplete distention of portions of the sigmoid colon. Otherwise, a small amount of retained stool is seen. No mass or mucosal process is seen, given these limitations. RAD/Barium Enema No Air Cont IMPRESSION: 1. Extensive diverticulosis involving the sigmoid colon, and to a lesser extent the descending colon. 2. No area of concerning mass or mucosal disease is seen. Reading Location: [place] [id number]
--- NOTE | 2025-05-25 14:06 | POSTOPAN2_ITS ---
Anesthesia Postop Eval I Sum Postop Eval Completion status Anesthesia document: Postop Eval 1 completed: Yes Anesthesia Postop Eval I Summary Anesthesia Postop Eval I Summary: Anesthesia Postop Eval I: Assessment Summary Airway patent Yes 05/25/25 10:04 FORMING PROCESS LINE WORKER.ACAR Spontaneous unlabored Yes 05/25/25 10:04 FORMING PROCESS LINE WORKER.ACAR respirations Mental status Awake 05/25/25 10:04 FORMING PROCESS LINE WORKER.ACAR nausea No 05/25/25 10:04 FORMING PROCESS LINE WORKER.ACAR Vomiting No 05/25/25 10:04 FORMING PROCESS LINE WORKER.ACAR Anesthesia Postop Eval I: Fluid Summary Crystalloid volume administer 500 05/25/25 10:04 FORMING PROCESS LINE WORKER.ACAR (ml) Colloids volume administered ( ml) Blood Product volume administered (ml) Total IV fluid infused 500 05/25/25 10:04 FORMING PROCESS LINE WORKER.ACAR Anesthesia Postop Eval I: Summary Notes Anesthesia Complication No 05/25/25 10:04 FORMING PROCESS LINE WORKER.ACAR Anesthesia Complication Comment: Post-operative progress note Anesthesia: Postop Eval II Evaluation Mental status: Awake and Calm Pain Level: 0 nausea: No Vomiting: No Complications Anesthesia Complication: No
--- NOTE | 2025-05-25 14:06 | PCM.POSTANE2 ---
Anesthesia Postop Eval I Sum Postop Eval Completion status Anesthesia document: Postop Eval 1 completed: Yes Anesthesia Postop Eval I Summary Anesthesia Postop Eval I Summary: Anesthesia Postop Eval I: Assessment Summary Airway patent Yes 05/25/25 10:04 DELIVERY COORDINATOR.ACAR Spontaneous unlabored Yes 05/25/25 10:04 DELIVERY COORDINATOR.ACAR respirations Mental status Awake 05/25/25 10:04 DELIVERY COORDINATOR.ACAR nausea No 05/25/25 10:04 DELIVERY COORDINATOR.ACAR Vomiting No 05/25/25 10:04 DELIVERY COORDINATOR.ACAR Anesthesia Postop Eval I: Fluid Summary Crystalloid volume administer 500 05/25/25 10:04 DELIVERY COORDINATOR.ACAR (ml) Colloids volume administered ( ml) Blood Product volume administered (ml) Total IV fluid infused 500 05/25/25 10:04 DELIVERY COORDINATOR.ACAR Anesthesia Postop Eval I: Summary Notes Anesthesia Complication No 05/25/25 10:04 DELIVERY COORDINATOR.ACAR Anesthesia Complication Comment: Post-operative progress note Anesthesia: Postop Eval II Evaluation Mental status: Awake and Calm Pain Level: 0 nausea: No Vomiting: No Complications Anesthesia Complication: No
== END 2025-05-25 10:38 | disposition home or self-care (01) ==
LOC: EN 08:34 → AC 08:36
PROVIDERS: PCP Family Medicine; Referring Provider Family Medicine; Visit Provider Surgery
PROC: 0DJD8ZZ Inspection of Lower Intestinal Tract, Via Natural or Artificial Opening Endoscopic (ICD-10-PCS; CPT 45378; principal; 2025-05-25 09:40)
DX: K57.32 Diverticulitis of large intestine without perforation or abscess without bleeding (principal); K21.9 Gastro-esophageal reflux disease without esophagitis; Z79.899 Other long term (current) drug therapy; Z87.891 Personal history of nicotine dependence
CPT/HCPCS: 45378; 74270; J2405

== ENCOUNTER → 2025-07-21 | Outpatient (CLI) | payer MEDICARE, BC, SELFPAY ==
[2025-07-21 12:45] LABS: Hematocrit 42.4 % (37-47); Hemoglobin 13.9 g/dL (12.0-15.0); Immature Granulocytes Count 0.130 X10^3/uL (0.0-0.0); Mean Corp Hgb Conc 32.8 g/dL (32-36); Mean Corpuscular Volume 93.6 fL (81-99); Mean Platelet Vol. 10.2 fl (6.2-12.0); NRBC Flagged by Analyzer 0 % (0-5); Platelet Count 329 K/mm3 (150-450); RBC Distribution Width CV 13.0 % (11.6-14.6); RBC Distribution Width SD 44.4 fl (35.1-43.9); Red Blood Count 4.53 M/mm3 (4.2-5.4); White Blood Count 7.3 K/mm3 (4.4-11.0)
[2025-07-21 13:24] LABS: FOLATES,SERUM (FOLIC ACID) 6.84 ng/mL (4.60-34.80)
[2025-07-21 13:30] LABS: AST(SGOT) 31 U/L (<=31); Alanine Aminotransfer ALT/SGPT 22 U/L (<=34); Albumin, Serum 3.9 g/dL (3.4-4.8); Alkaline Phosphatase 91 U/L (35-104); Anion Gap 11 (5-15); BUN 16 mg/dL (4-19); BUN/Creat Ratio 14.8 RATIO (10-20); CRP 7.99 mg/L (0.0-3.0); Calcium,Total 9.0 mg/dL (7.6-11.0); Carbon Dioxide 25.6 mmol/L (21.0-32.0); Chloride 103 mmol/L (98-108); Globulin 3.1 g/dL (2.2-4.2); Glucose 97 mg/dL (70-99); Potassium 4.4 mmol/L (3.3-5.1); Vitamin B12 373 pg/mL (180-914)
[2025-07-22 14:09] LABS: ANTINUCLEAR ANTIBODIES DIRECT Negative (Negative)
== END | disposition home or self-care (01) ==
LOC: MFPLAB 10:01
PROVIDERS: PCP Family Medicine; Visit Provider Family Medicine
DX: K57.32 Diverticulitis of large intestine without perforation or abscess without bleeding (principal); L65.9 Nonscarring hair loss, unspecified
CPT/HCPCS: 36415; 80053; 82607; 82746; 85025; 85652; 86038; 86140

== ENCOUNTER → 2025-08-02 | Outpatient (CLI) | payer MEDICARE, BC, SELFPAY ==
[2025-08-02 18:03] LABS: Hematocrit 41.6 % (37-47); Hemoglobin 13.8 g/dL (12.0-15.0); Immature Granulocytes Count 0.010 X10^3/uL (0.0-0.0); Immature Reticulocyte Fraction 8.50 % (3.00-15.90); Mean Corp Hgb Conc 33.2 g/dL (32-36); Mean Corpuscular Volume 93.3 fL (81-99); Mean Platelet Vol. 10.9 fl (6.2-12.0); NRBC Flagged by Analyzer 0 % (0-5); Platelet Count 364 K/mm3 (150-450); RBC Distribution Width CV 12.4 % (11.6-14.6); RBC Distribution Width SD 42.7 fl (35.1-43.9); Red Blood Count 4.46 M/mm3 (4.2-5.4); Reticulocyte Count 1.68 % (0.5-1.5); White Blood Count 4.3 K/mm3 (4.4-11.0)
[2025-08-02 18:12] LABS: AST(SGOT) 23 U/L (<=31); Alanine Aminotransfer ALT/SGPT 16 U/L (<=34); Albumin, Serum 3.9 g/dL (3.4-4.8); Alkaline Phosphatase 84 U/L (35-104); Anion Gap 11 (5-15); BUN 15 mg/dL (4-19); BUN/Creat Ratio 16.8 RATIO (10-20); Calcium,Total 9.3 mg/dL (7.6-11.0); Carbon Dioxide 26.4 mmol/L (21.0-32.0); Chloride 100 mmol/L (98-108); Globulin 2.9 g/dL (2.2-4.2); Glucose 103 mg/dL (70-99); Potassium 4.3 mmol/L (3.3-5.1)
== END | disposition home or self-care (01) ==
LOC: MFPLAB 14:44
PROVIDERS: PCP Family Medicine; Visit Provider Family Medicine
DX: R19.7 Diarrhea, unspecified (principal)
CPT/HCPCS: 36415; 80053; 85025; 85045